=== PATIENT | female | born 1975 | race Caucasian/White ===

== ENCOUNTER 2018-04-26 10:36 | Inpatient (IN) | payer OTHER ==
[~2018-04-26] VITALS: Ht 160 cm; Wt 99.8 kg
[~2018-04-26 10:36] MED LIST: ESOM40CA PO; ESTR0.62 PO; SERT50TA PO
[2018-04-26 11:30] VITALS: BP 110/59
[2018-04-26] MEDS: fentaNYL PF VIAL 100 MCG/2 ML VIAL IV PRN ×4 (12:08→21:24)
[2018-04-26] MEDS ORDERED: PANT20TA2 PO (12:47)
[2018-04-26] MEDS ORDERED: MELA3TAB2 PO (12:47)
[2018-04-26] MEDS ORDERED: TIZA4TAB PO (12:47)
[2018-04-26] MEDS ORDERED: PROC5TAB14 PO (12:47)
[2018-04-26] MEDS ORDERED: PROP60CA8 PO (12:48)
--- NOTE | 2018-04-26 13:22 | HP ---
ADMIT DATE: 04/26/2018 HISTORY OF PRESENT ILLNESS: The patient is a 43-year-old female patient who was originally admitted to [facility] 04/24/2018 initially with a complaint of chest pressure that started the night before admission with some radiation towards her left arm. The pain has subsided and she went to work. On the morning of admission, she was walking upstairs and she began experiencing some dizziness and recurrent with her chest discomfort. She described her chest pain as sharp, left side, radiating towards her left shoulder area. She also has some paresthesia in her left hand; however, exertion does not certainly seem to worsen her chest discomfort; however, she denied any nausea, vomiting or shortness of breath. She apparently has had some chest discomfort in January. She was seen at [facility] Cardiology team and had had an outpatient stress test last Tuesday, but apparently was unremarkable. She was evaluated extensively in the Emergency Room. Her lab work showed that she has slightly deranged liver enzyme, mostly elevated AST, ALT; however, the serum bilirubin and alkaline phosphatase were normal. Her D-dimer was elevated at 1.14 mg/dL and therefore, she underwent CT angio, which was basically unremarkable and was negative for pulmonary embolism, no thoracic aortic dissection or focal aneurysmal dilatation seen. No enlarged thoracic lymphadenopathy is evident. The heart size is at the upper limit of normal, but there was no pericardial effusion, no pleural effusion is seen. She has bilateral ground glass lung infiltrates seen, which may be due to atelectasis or pulmonary edema. There was definitely no pneumothorax. The proximal bronchial tree is patent. No adrenal masses are evident. Diffuse fatty infiltration of the liver is seen. However, the thoracic spines are normal with no evidence of any osteolytic process or compression fracture. She was admitted for further evaluation and underwent an abdominal ultrasound, which showed again fatty liver and the gallbladder was absent. There was no intrahepatic or extrahepatic biliary dilatation. Her spleen, right kidney were all normal and the patient continued to complain of pain in her left upper quadrant and therefore, I did a CT scan of the abdomen and pelvis. So, the CT scan of the abdomen and pelvis with oral and IV contrast showed that the only abnormality is that she has a small fat containing periumbilical hernia seen, but otherwise a CT scan of the abdomen and pelvis with contrast was unremarkable. The patient continued to complain of severe pain and therefore, I transferred the patient to [facility] to consult the bridge repairer and surgical team to see if they find a cause for her resistant abdominal pain. PAST MEDICAL HISTORY: Significant for morbid obesity, obstructive sleep apnea for which she is on CPAP. She also has migraine headaches. PAST SURGICAL HISTORY: Significant for appendectomy, cholecystectomy, total abdominal hysterectomy. She also has a history of endometriosis. She also had an ovarian cyst removal and bladder suspension surgery. ALLERGIES: She has no known drug allergies. MEDICATIONS: She is currently on following medications: She is on tizanidine 4 mg daily, propranolol 60 mg extended release or Inderal-LA 1 capsule daily. She is on topiramate 50 mg twice a day, sertraline for Zoloft 50 mg once a day, Compazine 5 mg 3 times a day and Protonix 40 mg daily and melatonin 5 mg at bedtime. FAMILY HISTORY: She has 1 older brother and one younger brother, both are healthy. Father is alive at age of 68 and has no medical problem. Mother is alive at age of 68 and known to have type 2 diabetes. SOCIAL HISTORY: She is , has 1 biological son and 4 stepson. She does not smoke. Drinks alcohol occasionally. She does not use any drugs. 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 PHYSICAL EXAMINATION GENERAL: When I saw her this morning, she was resting slightly propped up in bed, in no apparent respiratory distress. There was no pallor, jaundice, cyanosis or thyromegaly. No jugular venous distention. No limb edema. VITAL SIGNS: Her heart rate was 60, blood pressure was 160/80, temperature was 98, respiratory rate was 19 and oxygen saturation was 97% on room air. HEAD, EYES, EARS, NOSE AND THROAT: Showed normocephalic, atraumatic. NECK: Supple. HEART: Showed normal first and second heart sounds. No gallop, rub or murmur. CHEST: Clear to auscultation. No crepitation or rhonchi. ABDOMEN: Distended, soft with tenderness mostly in the left upper quadrant. There is no guarding or rigidity. No organomegaly. Hernial orifice intact. Bowel sounds normal. NEUROLOGIC: She is awake, alert, responding appropriately. All cranial nerves intact. EXTREMITIES: She moves extremities without difficulty. She ambulates without assistance or assistive devices. LABORATORY WORK: Done this morning showed a serum sodium 140, potassium 4, chloride 108, bicarbonate 24, anion gap of 8, BUN is 9, creatinine was 0.8. Total bilirubin and alkaline phosphatase were normal. AST, ALT are elevated at 312 and 195 respectively. Her total protein was 6.3, albumin 2.8, calcium was 8.5. Her estimated GFR was 68 mL per minute. Her white cell count and CBC was normal. As I stated, the ultrasound showed nonalcoholic steatohepatitis and a CT scan showed that the liver is enlarged with hepatic attenuation consistent with hepatic steatosis. No focal liver lesion. There has been a cholecystectomy. No biliary duct dilatation. Spleen is not enlarged. No focal splenic lesion is seen. Adrenal glands are normal. Pancreas is unremarkable. Symmetric nephrograms, subcentimeter hypodense left interpolar exophytic renal lesion, is too small to characterize. No hydronephrosis or hydroureter. Small and large bowel are normal in caliber. No evidence of bowel obstruction. Colonic diverticula are seen without evidence of acute diverticulitis. Small fat containing periumbilical hernia is seen. No abdominal or pelvic ascites. No abdominal or pelvic adenopathy. The visualized bony structures are unremarkable. PLAN: To continue with her current medication, consult the surgical team as well as the Gastroenterology team and decide the further management accordingly. MIGUELINA ROSSI MD DR: DIVYA/shaheed JOB#: [id number] / [id number]
--- NOTE | 2018-04-26 13:57 | PDOC2 ---
GI CONSULT Reason For Consult: Abd pain HPI: HPI: 43 y/o female transferred from [facility]. Since last week has had left-sided chest pain. Underwent cardiac workup @ [facility] which was negative. Additionally, CTA chest was negative for PE. Pain is sharp and constant, can wake her up during the night, felt under breast shooting to shoulder, might wrap around left side to back, might also be creeping to epigastrium or slightly down left side. Pain meds provide minimal improvement. Can't specify aggravating factors. Some nausea w/o vomiting, tolerates diet. No diarrhea or constipation. No bleeding. Has gained weight. Hgb 12.7 to 11.7. Bili and Alk Phos have been normal, AST and ALT are elevated - AST 195 (stable), ALT 312 (from 335). Lipase normal. CT w/ hepatomegaly, fat -containing periumbilical hernia, and diverticulosis. US w/ hepatic steatosis and normal CBD. H/o GERD controlled w/ Protonix QD. S/p cholecystectomy for stones. No liver or pancreas history she's aware of. Occasional ibuprofen when struggling with migraines. In 2016, EGD (for abd pain and diarrhea) was normal (no biopsies). At that time, colonoscopy (for diarrhea) mild patchy inflammation w/ granularity and decreased vascularity from sigmoid to cecum (TI biopsy showed focal ileitis with few neutrophils and random colon biopsy suggestive of early microscopic colitis w/o atypic, malignancy, or features of IBD) and internal hemorrhoids. Colestid was recommended; she did not follow-up in the office. PMH: PMH: migraines, EN, GERD, hepatic steatosis, diverticulosis, PCOS, tonsillectomy, ovarian cystectomies, hysterectomy, appendectomy, cholecystectomy, bladder suspension x 2, RICAHRD FH: Family History: No pertinent hx (denies GI cancers) Social History: Smoke: No ALCOHOL: occassional Drugs: None ROS: GEN: Denies fevers, chills, sweats HEENT: Denies blurred vision, sore throat CV: Denies chest pain RESP: Denies shortness of air, cough GI: Per HPI : Denies hematuria, dysuria ENDO: Denies weight changes NEURO: Denies confusion, dizziness MSK: Denies weakness, joint pain/swelling SKIN: Denies jaundice, pruritus Vitals: Vitals: Vital Signs Date Time Temp Pulse Resp B/P (MAP) Pulse Ox O2 Delivery O2 Flow Rate FiO2 04/26/18 11:30 98.3 55 16 110/59 (76) 95 Room Air 98.3 Labs: Labs: Per HPI. Allergies: Coded Allergies: No Known Drug Allergies (Unverified , 09/18/15) Medications: Current Medications Medications (Trade) Dose Ordered Sig/Rimma Route PRN Reason Start Time Stop Time Status Last Admin Dose Admin Potassium Chloride/Sodium Chloride 1,000 ml @ 75 mls/hr [id number] IV 04/26/18 11:45 04/26/18 12:11 Fentanyl Citrate (Fentanyl 2ml Vial) 50 mcg PRN Q2HR PRN IV PAIN 04/26/18 11:45 04/26/18 12:08 Imaging: Imaging: Per HPI. PE: GEN: uncomfortable HEENT: Atraumatic, PERRL LUNGS: CTAB HEART: RRR ABD: NABS, soft, overweight, unable to reproduce pain w/ exam EXTREMITY: No edema SKIN: No rashes, no jaundice NEURO/PSYCH: A & O 3 A/P: A/P: Left-sided chest pain -radiates to shoulder, under breast, to epigastrium, and around to back -sharp, constant Elevated AST and ALT, hepatic steatosis GERD -controlled on PPI, normal EGD 2015 CRC screen - UTD Diverticulosis S/p cholecystectomy, multiple abd surgeries Normocytic anemia - Hgb 11.7 -- Unclear etiology. Reviewed w/ Dr. Jimenez. Check Hepatitis serologies and autoimmune markers. Would continue PPI and try dicyclomine. Could consider advancing diet. ?lidocaine patch TYRELL QUIROZ Apr 26, 2018 13:57
[2018-04-26 15:00] VITALS: BP 109/67
[2018-04-26] MEDS: ONDANSETRON PF 4 MG/2 ML VIAL. IV PRN ×2 (15:00→22:04)
[2018-04-26] MEDS: DICYCLOMINE HCL 10 MG CAPSULE PO PRN ×2 (15:01→21:23)
--- NOTE | 2018-04-26 15:10 | PDOC2 ---
CONSULT Date of Consult Date of Consult DATE: 04/26/18 TIME: 15:04 Reason for Consult Reason for Consult: LUQ abd pain Referring Physician Referring Physician: Ra Identification/Chief Complaint Chief Complaint LUQ abd pain Source Source: Chart review, Patient History of Present Illness Reason for Visit: 43 yo F with a few day history of LUQ abd pain. She has not previous issues like this. She denies n/V, F/C. Etiology is unknown, imaging at [facility] unrevealing. Past Medical History CENTRAL NERVOUS SYSTEM: Migraine GI: GERD Rheumatologic: Other (osteoarthritis) Past Surgical History Past Surgical History: Appendectomy, Cholecystectomy, Hysterectomy, Other (RICHARD , bladder suspension) Family History Family History: No Significant Social History No ALCOHOL: occassional Drugs: None Current Medications Current Medications Current Medications Ondansetron HCl (Zofran) 4 mg PRN Q6HRS PRN IV NAUSEA/VOMITING Last administered on 04/26/18at 15:00; Start 04/26/18 at 11:45 Pantoprazole Sodium (Protonix) 40 mg DAILYAC PO ; Start 04/27/18 at 07:30 Potassium Chloride/Sodium Chloride 1,000 ml @ 75 mls/hr [id number] IV Last administered on 04/26/18at 12:11; Start 04/26/18 at 11:45 Sertraline HCl (Zoloft) 50 mg QHS PO ; Start 04/26/18 at 21:00 Topiramate (Topamax) 50 mg BID PO ; Start 04/26/18 at 21:00 Fentanyl Citrate (Fentanyl 2ml Vial) 50 mcg PRN Q2HR PRN IV PAIN Last administered on 04/26/18at 15:01; Start 04/26/18 at 11:45 Tizanidine HCl (Zanaflex) 4 mg HS PO ; Start 04/26/18 at 21:00 Dicyclomine HCl (Bentyl) 10 mg PRN QID PRN PO ABDOMINAL PAIN Last administered on 04/26/18at 15:01; Start 04/26/18 at 15:00 Active Scripts Active Reported Inderal La (Propranolol Hcl) 60 Mg Cap.sa.24h 1 Cap PO DAILY Tizanidine Hcl 4 Mg Tablet 4 Mg PO DAILY PRN Prochlorperazine Maleate 10 Mg Tablet 5 Mg PO TID Protonix (Pantoprazole Sodium) 20 Mg Tablet.dr 1 Tab PO DAILY Melatonin 3 Mg Tablet 5 Mg PO HS PRN Zoloft (Sertraline Hcl) 50 Mg Tablet 50 Mg PO DAILY Allergies Allergies: Coded Allergies: No Known Drug Allergies (Unverified , 09/18/15) ROS Gastrointestinal: Yes Abdominal Pain Physical Exam General: Alert, Oriented X3, Cooperative, No acute distress HEENT: Atraumatic Lungs: Normal air movement Abdomen: Soft, No tenderness Extremities: No clubbing, No cyanosis Skin: No rashes, No breakdown Neuro: Normal speech, Sensation intact Psych/Mental Status: Mental status NL, Mood NL Vitals VITALS Vital Signs Date Time Temp Pulse Resp B/P (MAP) Pulse Ox O2 Delivery O2 Flow Rate FiO2 04/26/18 11:30 98.3 55 16 110/59 (76) 95 Room Air 98.3 Assessment/Plan Assessment/Plan LUQ abd pain fat containing hernia only abnormality noted-low suspicion that this is clinically relevant. In addition, pt poor candidate for hernia recurrence based on obesity. Agree with w/u per GI. No surgical plans. Thanks for consult! NELLIE GARCAI MD Apr 26, 2018 15:10
[2018-04-26 19:35] VITALS: BP 136/67
[2018-04-26] MEDS: TOPIRAMATE 25 MG TABLET. PO SCH (21:22)
[2018-04-26] MEDS: SERTRALINE 50 MG TABLET. PO SCH (21:23)
[2018-04-26] MEDS: tiZANidine 4 MG TABLET. PO SCH (21:23)
[2018-04-26 23:50] VITALS: BP 118/68
[2018-04-27] MEDS: fentaNYL PF VIAL 100 MCG/2 ML VIAL IV PRN ×8 (00:41→23:29)
[2018-04-27 03:35] VITALS: BP 87/47
[2018-04-27] MEDS: ONDANSETRON PF 4 MG/2 ML VIAL. IV PRN ×3 (04:06→17:32)
[2018-04-27 07:00] VITALS: BP 112/58
[2018-04-27] MEDS: PANTOPRAZOLE 40 MG TABLET.DR. PO SCH (08:44)
[2018-04-27] MEDS: TOPIRAMATE 25 MG TABLET. PO SCH ×2 (08:44→20:35)
--- NOTE | 2018-04-27 09:02 | PDOC ---
BA YADAV APRN 04/27/18 0902: SURGICAL PROGRESS NOTE Subjective continued epigastric and LUQ pain nausea at times taking clears Vital Signs Vital Signs Date Time Temp Pulse Resp B/P (MAP) Pulse Ox O2 Delivery O2 Flow Rate FiO2 04/27/18 07:52 16 Room Air 04/27/18 07:09 96 04/27/18 07:00 97.8 50 112/58 (76) 97.8 I&O Intake and Output 04/27/18 07:00 Intake Total 500 ml Balance 500 ml Intake Oral 500 ml # Voids 4 General: Alert, Oriented X3, Cooperative, No acute distress Abdomen: Soft, Other (TTP epigastric, LUQ) Problem List abd pain no surgical plans, await GI input NELLIE GARCIA MD 04/27/18 1631: SURGICAL PROGRESS NOTE Problem List Pt seen and examined. Agree with Otilio Yadav's note Pt with c/o persistent LUQ pain mild TTP LUQ cont w/u per GI BA YADAV APRN Apr 27, 2018 09:02 NELLIE GARCIA MD Apr 27, 2018 16:31
[2018-04-27 09:36] LABS: ALBUMIN 3.2 g/dL (3.4-5.0); DIRECT BILIRUBIN 0.2 mg/dL (0.0-0.2); TOTAL BILIRUBIN 0.7 mg/dL (0.2-1.0); TOTAL PROTEIN 6.9 g/dL (6.4-8.2)
--- NOTE | 2018-04-27 10:24 | PDOC ---
Subjective: Subjective: Pain is ongoing - no pretty much in epigastrium. Bentyl and GI cocktail not helpful. Tells me she has episodes of sour stomach burps and then diarrhea - having neither symptom now. Objective: Objective: Reviewed w/ RN = wants Fentanyl Q 2 hours, says brings her pain from 7 to 5. Vital Signs: Vital Signs Date Time Temp Pulse Resp B/P (MAP) Pulse Ox O2 Delivery O2 Flow Rate FiO2 04/27/18 08:00 Room Air 04/27/18 07:52 16 04/27/18 07:09 96 04/27/18 07:00 97.8 50 112/58 (76) 97.8 Labs: Laboratory Tests Test 04/27/18 07:40 Total Bilirubin 0.7 mg/dL Direct Bilirubin 0.2 mg/dL Aspartate Amino Transf (AST/SGOT) 221 U/L Alanine Aminotransferase (ALT/SGPT) 343 U/L Alkaline Phosphatase 109 U/L Total Protein 6.9 g/dL Albumin 3.2 g/dL PE: GEN: NAD LUNGS: CTAB HEART: RRR ABD: epigastric discomfort NEURO/PSYCH: A & O 3 A/P: Pain - began in chest and shoulder, now epigastrium/LUQ -h/o GERD on PPI, EGD 2016 -multiple abd surgeries Elevated AST and ALT - worse -hepatic steatosis on imaging -- Seems has chronic GI issues, but this pain is new/different. Has been 'scoped within 2 years. ?GES ?SBS - Dr. Jimenez to see this afternoon Await pending labs. TYRELL QUIROZ Apr 27, 2018 10:24
[2018-04-27 11:00] VITALS: BP 112/60
--- NOTE | 2018-04-27 11:29 | PN ---
DATE: 04/27/2018 SUBJECTIVE: The patient is resting, slightly propped up in bed, no apparent distress. She continued to complain of pain in her left upper quadrant. She was seen in consultation by Dr. Carvajal, who basically did not think that umbilical hernia is not clinically relevant and there are no surgical plans to correct the hernia. We did consult the GI team and she was not seen yet by Dr. Jimenez. She apparently has had upper GI endoscopy before. PHYSICAL EXAMINATION: GENERAL: When I examined her this morning, she looked well and was clearly in no apparent respiratory distress, slightly pale, but no jaundice, cyanosis or thyromegaly. No jugular venous distention. No lower limb edema. VITAL SIGNS: Her heart rate was 50, blood pressure was 112/58, temperature was 97.8, respiratory rate was 18 and oxygen saturation was 98%. The rest of the clinical exam is unremarkable, has not really changed. She does have some tenderness in the left upper quadrant. LABORATORY DATA: No lab works ordered. So I did order CBC, CMP, sed rate and CRP for tomorrow morning. ASSESSMENT AND PLAN: Left upper quadrant pain without any obvious explanation. She has had initially pain in the left side of the chest, radiating to her left shoulder and underwent nuclear stress testing and echocardiogram, both were unremarkable. CT scan of the chest with PE protocol showed no evidence of pulmonary embolism or aortic dissection. No pneumothorax, pleural effusion or pneumonia. CT scan of the abdomen showed that the patient has nonalcoholic steatosis. Her gallbladder is absent. There is no intrahepatic or extrahepatic biliary dilatation. There is no left-sided hydronephrosis or hydroureter. The plan is to await evaluation by the Gastroenterology team. MIGUELINA ROSSI MD DR: DIVYA/shaheed JOB#: [id number] / [id number]
[2018-04-27 15:00] VITALS: BP 109/62
[2018-04-27 19:00] VITALS: BP 142/68
[2018-04-27] MEDS: tiZANidine 4 MG TABLET. PO SCH (20:35)
[2018-04-27] MEDS: SERTRALINE 50 MG TABLET. PO SCH (20:35)
[2018-04-27 23:00] VITALS: BP 135/76
[2018-04-28 03:00] VITALS: BP 129/63
[2018-04-28] MEDS: fentaNYL PF VIAL 100 MCG/2 ML VIAL IV PRN ×7 (03:19→20:27)
[2018-04-28 05:32] LABS: HEMATOCRIT 35.3 % (36.0-47.0); HEMOGLOBIN 11.7 g/dL (12.0-15.5); RED BLOOD COUNT 4.24 x10^6/uL (3.50-5.40); RED CELL DISTRIBUTION WIDTH 15.3 % (11.5-14.5); WHITE BLOOD COUNT 7.6 x10^3/uL (4.0-11.0)
[2018-04-28] MEDS: PANTOPRAZOLE 40 MG TABLET.DR. PO SCH ×2 (06:00→11:25)
[2018-04-28 06:08] LABS: ALBUMIN 3.1 g/dL (3.4-5.0); ALBUMIN/GLOBULIN RATIO 0.9 (1.0-1.7); CREATININE 0.9 mg/dL (0.6-1.0); GFR 67.7; TOTAL BILIRUBIN 0.9 mg/dL (0.2-1.0); TOTAL PROTEIN 6.7 g/dL (6.4-8.2)
[2018-04-28 06:17] LABS: C-REACTIVE PROTEIN 11.9 mg/L (0-3.3)
[2018-04-28] MEDS: ONDANSETRON PF 4 MG/2 ML VIAL. IV PRN ×3 (06:48→20:30)
[2018-04-28 07:00] VITALS: BP 121/67
--- NOTE | 2018-04-28 08:19 | PDOC ---
SURGICAL PROGRESS NOTE Subjective Pt with c/o persistent LUQ pain Vital Signs Vital Signs Date Time Temp Pulse Resp B/P (MAP) Pulse Ox O2 Delivery O2 Flow Rate FiO2 04/28/18 06:49 Room Air 04/28/18 03:00 98.2 54 18 129/63 (85) 95 98.2 I&O Intake and Output 04/28/18 07:00 Intake Total 2440 ml Balance 2440 ml Intake Oral 1440 ml IV Total 1000 ml # Voids 7 General: Alert, Oriented X3, Cooperative, No acute distress Abdomen: Soft, Other (mild TTP LUQ) Labs Laboratory Tests Test 04/27/18 07:40 04/28/18 04:40 Total Bilirubin 0.7 mg/dL (0.2-1.0) 0.9 mg/dL (0.2-1.0) Direct Bilirubin 0.2 mg/dL (0.0-0.2) Aspartate Amino Transf (AST/SGOT) 221 U/L (15-37) 220 U/L (15-37) Alanine Aminotransferase (ALT/SGPT) 343 U/L (14-59) 342 U/L (14-59) Alkaline Phosphatase 109 U/L (46-116) 101 U/L (46-116) Total Protein 6.9 g/dL (6.4-8.2) 6.7 g/dL (6.4-8.2) Albumin 3.2 g/dL (3.4-5.0) 3.1 g/dL (3.4-5.0) Cortisol AM Sample 8.2 ug/dL (4.3-22.4) Hepatitis B Surface Antigen Nonreactive (Nonreactive) Hepatitis C IgG Antibody Nonreactive (Nonreactive) White Blood Count 7.6 x10^3/uL (4.0-11.0) Red Blood Count 4.24 x10^6/uL (3.50-5.40) Hemoglobin 11.7 g/dL (12.0-15.5) Hematocrit 35.3 % (36.0-47.0) Mean Corpuscular Volume 83 fL (79-100) Mean Corpuscular Hemoglobin 28 pg (25-35) Mean Corpuscular Hemoglobin Concent 33 g/dL (31-37) Red Cell Distribution Width 15.3 % (11.5-14.5) Platelet Count 222 x10^3/uL (140-400) Erythrocyte Sedimentation Rate 22 (0-25) Sodium Level 140 mmol/L (136-145) Potassium Level 4.0 mmol/L (3.5-5.1) Chloride Level 106 mmol/L (98-107) Carbon Dioxide Level 22 mmol/L (21-32) Anion Gap 12 (6-14) Blood Urea Nitrogen 6 mg/dL (7-20) Creatinine 0.9 mg/dL (0.6-1.0) Estimated GFR (Cockcroft-Gault) 67.7 BUN/Creatinine Ratio 7 (6-20) Glucose Level 114 mg/dL (70-99) Calcium Level 9.0 mg/dL (8.5-10.1) C-Reactive Protein, Quantitative 11.9 mg/L (0-3.3) Albumin/Globulin Ratio 0.9 (1.0-1.7) Laboratory Tests Test 04/28/18 04:40 White Blood Count 7.6 x10^3/uL (4.0-11.0) Red Blood Count 4.24 x10^6/uL (3.50-5.40) Hemoglobin 11.7 g/dL (12.0-15.5) Hematocrit 35.3 % (36.0-47.0) Mean Corpuscular Volume 83 fL (79-100) Mean Corpuscular Hemoglobin 28 pg (25-35) Mean Corpuscular Hemoglobin Concent 33 g/dL (31-37) Red Cell Distribution Width 15.3 % (11.5-14.5) Platelet Count 222 x10^3/uL (140-400) Erythrocyte Sedimentation Rate 22 (0-25) Sodium Level 140 mmol/L (136-145) Potassium Level 4.0 mmol/L (3.5-5.1) Chloride Level 106 mmol/L (98-107) Carbon Dioxide Level 22 mmol/L (21-32) Anion Gap 12 (6-14) Blood Urea Nitrogen 6 mg/dL (7-20) Creatinine 0.9 mg/dL (0.6-1.0) Estimated GFR (Cockcroft-Gault) 67.7 BUN/Creatinine Ratio 7 (6-20) Glucose Level 114 mg/dL (70-99) Calcium Level 9.0 mg/dL (8.5-10.1) Total Bilirubin 0.9 mg/dL (0.2-1.0) Aspartate Amino Transf (AST/SGOT) 220 U/L (15-37) Alanine Aminotransferase (ALT/SGPT) 342 U/L (14-59) Alkaline Phosphatase 101 U/L (46-116) C-Reactive Protein, Quantitative 11.9 mg/L (0-3.3) Total Protein 6.7 g/dL (6.4-8.2) Albumin 3.1 g/dL (3.4-5.0) Albumin/Globulin Ratio 0.9 (1.0-1.7) Problem List LUQ pain agree with GI w/u no surgical plan currently NELILE GARCIA MD Apr 28, 2018 08:19
--- NOTE | 2018-04-28 10:13 | PDOC ---
Objective: Objective: Out of room for MRCP. Ongoing pain per RN. Vital Signs: Vital Signs Date Time Temp Pulse Resp B/P (MAP) Pulse Ox O2 Delivery O2 Flow Rate FiO2 04/28/18 09:09 20 Room Air 04/28/18 07:00 97.8 50 121/67 (85) 96 97.8 Labs: Laboratory Tests Test 04/28/18 04:40 White Blood Count 7.6 x10^3/uL Red Blood Count 4.24 x10^6/uL Hemoglobin 11.7 g/dL Hematocrit 35.3 % Mean Corpuscular Volume 83 fL Mean Corpuscular Hemoglobin 28 pg Mean Corpuscular Hemoglobin Concent 33 g/dL Red Cell Distribution Width 15.3 % Platelet Count 222 x10^3/uL Erythrocyte Sedimentation Rate 22 Sodium Level 140 mmol/L Potassium Level 4.0 mmol/L Chloride Level 106 mmol/L Carbon Dioxide Level 22 mmol/L Anion Gap 12 Blood Urea Nitrogen 6 mg/dL Creatinine 0.9 mg/dL Estimated GFR (Cockcroft-Gault) 67.7 BUN/Creatinine Ratio 7 Glucose Level 114 mg/dL Calcium Level 9.0 mg/dL Total Bilirubin 0.9 mg/dL Aspartate Amino Transf (AST/SGOT) 220 U/L Alanine Aminotransferase (ALT/SGPT) 342 U/L Alkaline Phosphatase 101 U/L C-Reactive Protein, Quantitative 11.9 mg/L Total Protein 6.7 g/dL Albumin 3.1 g/dL Albumin/Globulin Ratio 0.9 PE: no exam, out of room A/P: Upper abd pain -last EGD and colonoscopy in 2015 -h/o GERD on PPI -multiple abd surgeries including norm Elevated AST and ALT (stable), hepatic steatosis -- Await MRCP. If unrevealing, proceed w/ GES. TYRELL QUIROZ Apr 28, 2018 10:13
[2018-04-28 11:00] VITALS: BP 117/66
[2018-04-28] MEDS: TOPIRAMATE 25 MG TABLET. PO SCH ×2 (11:22→20:31)
--- NOTE | 2018-04-28 11:38 | PN ---
DATE: 04/28/2018 INCOMPLETE DICTATION SUBJECTIVE: The patient is . DICTATION ENDS HERE. MIGUELINA ROSSI MD DR: DIVYA/shaheed JOB#: [id number] / [id number]
--- NOTE | 2018-04-28 11:42 | PN ---
DATE: 04/28/2018 SUBJECTIVE: The patient is resting slightly propped up in bed, in no apparent respiratory distress. She is awake, alert, apparently has been complaining of severe pain that she rated out as a 9/10 for which she received her IV fentanyl. She is n.p.o. She is scheduled for MRCP this morning. PHYSICAL EXAMINATION: GENERAL: When I examined her, she looked well and was clearly in no apparent respiratory distress. No pallor, jaundice, cyanosis, or thyromegaly. No jugular venous distension. No lower limb edema. VITAL SIGNS: Her heart rate was 50, blood pressure was 121/67, temperature was 97.8, respiratory rate 16, and oxygen saturation was 96%. The rest of clinical examination is unremarkable, has not really changed. LABORATORY DATA: This morning showed a serum sodium 140, potassium 4, chloride 106, bicarbonate 22, anion gap of 12, BUN 6, creatinine 0.9, estimated GFR was 68 mL per minute. Her glucose was 114, calcium was 9. Total bilirubin and alkaline phosphatase were normal. AST, ALT were elevated. Her C-reactive protein was 11.9 mg/dL. Total protein was 6.7, albumin was 3.1. Her white cell count was 7600, hemoglobin 12, hematocrit 35, MCV 83 and platelet count 222,000. Her sedimentation rate was 22. ASSESSMENT: Persistent left upper quadrant abdominal pain for which she was seen by the Gastroenterology team and she is scheduled for MRCP as she has undergone cholecystectomy to evaluate for any choledocholithiasis or other abnormalities. MIGUELINA ROSSI MD DR: DIVYA/shaheed JOB#: [id number] / [id number]
--- NOTE | 2018-04-28 13:33 | RAD ---
MRCP, 04/28/2018: HISTORY: Worsening abdominal pain, transaminitis Imaging was performed in axial and coronal planes utilizing a variety of imaging sequences including T2 weighted, fat suppressed T2 weighted, diffusion weighted and opposed phase gradient echo sequences. 2-D and 3-D heavily MRCP sequences were performed with 3-D reconstructions produced. The gallbladder is surgically absent. The intrahepatic bile ducts and the common bile duct are of normal caliber. No filling defect is seen in the common duct to suggest a retained calculus. The pancreatic duct is small and incompletely visualized. No abnormality is detected. Incidental note is made of mild hepaticomegaly with evidence of hepatic steatosis. The liver, pancreas, spleen and visualized portions of the kidneys are otherwise unremarkable. IMPRESSION: 1. Status post cholecystectomy. 2. No biliary tract abnormality is detected. 3. Hepatomegaly with hepatic steatosis. Electronically signed by: Leonard Acuña MD (04/28/2018 1:29 PM) [facility]
[2018-04-28 15:00] VITALS: BP 116/66
[2018-04-28 19:00] VITALS: BP 136/73
[2018-04-28] MEDS: SERTRALINE 50 MG TABLET. PO SCH (20:30)
[2018-04-28] MEDS: tiZANidine 4 MG TABLET. PO SCH (20:31)
[2018-04-28 23:00] VITALS: BP 120/65
[2018-04-29] MEDS: fentaNYL PF VIAL 100 MCG/2 ML VIAL IV PRN ×7 (00:12→15:57)
[2018-04-29 03:00] VITALS: BP 126/77
[2018-04-29] MEDS: PANTOPRAZOLE 40 MG TABLET.DR. PO SCH (06:46)
[2018-04-29] MEDS: ONDANSETRON PF 4 MG/2 ML VIAL. IV PRN ×2 (06:46→09:19)
[2018-04-29 07:10] VITALS: BP 119/59
[2018-04-29] MEDS: TOPIRAMATE 25 MG TABLET. PO SCH (09:13)
[2018-04-29] MEDS: DICYCLOMINE HCL 10 MG CAPSULE PO PRN ×2 (09:19→14:56)
[2018-04-29 11:35] VITALS: BP 125/71
--- NOTE | 2018-04-29 12:13 | PN ---
DATE: 04/29/2018 SUBJECTIVE: The patient is resting, slightly propped up in bed, in no apparent distress. She continues to complain of pain. She has had her MRCP, which was unrevealing. It showed the gallbladder is surgically absent. The intrahepatic bile ducts and the common bile duct are of normal caliber. No filling defects are seen in the common bile duct to suggest any retained calculus. Carotid duct is small and incompletely visualized. No abnormalities detected. Incidental note is made of mild hepatomegaly with evidence of hepatic steatosis. The liver, pancreas, spleen and visualized portion of the kidneys are otherwise unremarkable. The Gastroenterology team recommended gastric emptying study; however, this is not something that is done at the weekend. I offered to discharge her home to do it as an outpatient and follow up with the Gastroenterology, but the patient wanted to wait the Gastroenterology round. PHYSICAL EXAMINATION: GENERAL: When I examined her, she looked pale, but no jaundice, cyanosis or thyromegaly. No jugular venous distention. No lower limb edema. VITAL SIGNS: Her heart rate was 48, blood pressure was 119/59, temperature was 98.2, respiratory rate was 16 and oxygen saturation was 95%. The rest of the clinical examination is unremarkable. Her intake was 2414. No output was recorded. LABORATORY DATA: Her lab work showed that her AST and ALT continued to be elevated; however, her bilirubin and alkaline phosphatase were normal. Her sed rate was 22 mm per hour. C-reactive protein was 11.9. Her hepatitis B surface antigen and hepatitis C IgG antibodies were both nonreactive. ASSESSMENT AND PLAN: Persistent abdominal pain, with so far no obvious cause for her pain. She was supposed to have gastric emptying study; unfortunately, it is something that is not done on the weekend. I will await decision by the Gastroenterology. We will write a prescription for oxycodone in case the Gastroenterology decides to discharge her home to finish her investigation as an outpatient. MIGUELINA ROSSI MD DR: DIVYA/shaheed JOB#: [id number] / [id number]
[2018-04-29] MEDS ORDERED: OXYC5TAB95 PO (13:59)
[2018-04-29 14:45] VITALS: BP 130/83
[2018-04-30 16:09] LABS: MITOCHONDRIAL ABDY 17.1 Units (0.0-20.0)
--- NOTE | 2018-05-01 13:04 | DS ---
DATE OF DISCHARGE: 04/29/2018 HOSPITAL COURSE: The patient is a 43-year-old female patient who was transferred from [facility] where she was admitted with left-sided chest pain radiating to her shoulder and also that moved to her left upper quadrant. She was extensively investigated at [facility]. She has CT angio of the chest and she had abdominal ultrasound as well as CT scan of the abdomen and pelvis and apart from hepatic steatosis, there was no abnormality except perhaps small fat containing periumbilical hernia and therefore, the patient was transferred to [facility]. I did consult the surgical team. We did consult Dr. Carvajal and he did not recommend any surgical intervention for her small fat containing periumbilical hernia; however, Dr. Jimenez has seen the patient and ordered magnetic resonance cholangiopancreatography as well as multiple lab work including her multiple serological studies as well as hepatitis B surface antigen as well as hepatitis C IgG antibodies. The MRCP was unremarkable and showed that the gallbladder is surgically absent. The intrahepatic bile ducts and the common bile ducts are of normal caliber. No filling defect is seen and the common bile duct suggest retained calculus. The pancreatic duct is small and incompletely visualized. No abnormalities detected. Incidental note is made of mild hepatomegaly with evidence of hepatic steatosis of the liver, pancreas, spleen and visualized portion of the kidneys are otherwise unremarkable. He also recommended doing a gastric emptying study; however, it was a weekend and that obviously cannot be done, so I recommended that the patient can be discharged home to arrange for this gastric emptying study and follow with Dr. Jimenez in his office as an outpatient. PHYSICAL EXAMINATION: GENERAL: On the day of discharge, the patient looked well and was clearly in no apparent respiratory distress. No pallor, jaundice or cyanosis. No lymphadenopathy, no thyromegaly. No jugular venous distension. No lower limb edema. VITAL SIGNS: Her heart rate was 48, blood pressure was 130/83, temperature was 98, respiratory rate was 17 and oxygen saturation was 97% on room air. HEAD, EYES, EARS, NOSE AND THROAT: Showed normocephalic, atraumatic. NECK: Supple. HEART: Showed normal first and second heart sounds. No gallop, rub or murmur. CHEST: Clear to auscultation. No crepitation or rhonchi. ABDOMEN: Distended, soft. Tenderness that is moving sometimes in her left upper and sometimes right upper quadrant. There is no guarding or rigidity. No organomegaly. All hernial orifice intact. Bowel sounds normal. NEUROLOGIC: She was awake, alert, responding appropriately. Cranial nerves intact. EXTREMITIES: She moves her extremities without difficulty. She ambulates without assistance or assistive devices. LABORATORY WORK: On the day of discharge showed that her white cell count was 7600, hemoglobin 12, hematocrit 35, MCV 83 and platelet count 222,000. Her sedimentation rate was 22 mm per hour. Her chemistry showed a serum sodium 140, potassium 4, chloride 106, bicarbonate 22, anion gap of 12, BUN 6, creatinine 0.9, estimated GFR was 68 mL per minute. Her glucose was 114. Calcium was 9. Total bilirubin 0.9, alkaline phosphatase were normal. Her AST, ALT were elevated. Her C-reactive protein was 11.9. Total protein was 6.7, albumin 3.1. Her morning cortisol was 8.2. Her antimitochondrial antibody was only 17. Antismooth muscle antibody and antinuclear antibody is still pending; however, her hepatitis B and C are both negative. DISCHARGE MEDICATIONS: The patient was discharged home to continue on oxycodone 5 mg every 6 hours as needed, melatonin 5 mg at bedtime, Protonix 40 mg at bedtime, prochlorperazine maleate 10 mg 3 times a day, propranolol 60 mg daily, sertraline for Zoloft 50 mg once a day and tizanidine 4 mg daily as needed for muscle spasm. FINAL DISCHARGE DIAGNOSES: 1. Abdominal pain without any obvious cause. 2. Transaminitis, most likely due to nonalcoholic steatohepatitis. 3. Other medical problems include migraine headache, morbid obesity with obstructive sleep apnea. DISCHARGE INSTRUCTIONS: The patient was instructed to follow up with Dr. Jimenez to follow up the results of the lab work and also to arrange for gastric emptying study as an outpatient. MIGUELINA ROSSI MD DR: DIVYA/shaheed JOB#: [id number] / [id number]
[2018-05-01 14:26] LABS: SMOOTH MUSCLE AB 16 Units (0-19)
[2018-05-01 15:24] LABS: ANA INTERP Negative (.)
== END 2018-04-29 16:18 | disposition home or self-care (01) | DRG 392 ==
LOC: 4 NORTH 11:35
PROVIDERS: ADMIT Internal Medicine; ATTEND Internal Medicine
DX: R10.9 Unspecified abdominal pain (principal); K76.0 Fatty (change of) liver, not elsewhere classified; G43.909 Migraine, unspecified, not intractable, without status migrainosus; G47.33 Obstructive sleep apnea (adult) (pediatric); K21.9 Gastro-esophageal reflux disease without esophagitis; M19.90 Unspecified osteoarthritis, unspecified site; R07.89 Other chest pain; R16.0 Hepatomegaly, not elsewhere classified; D64.9 Anemia, unspecified; E66.01 Morbid (severe) obesity due to excess calories; K57.90 Diverticulosis of intestine, part unspecified, without perforation or abscess without bleeding; Z83.3 Family history of diabetes mellitus; Z90.49 Acquired absence of other specified parts of digestive tract; Z90.710 Acquired absence of both cervix and uterus; Z68.39 Body mass index [BMI] 39.0-39.9, adult; Z79.899 Other long term (current) drug therapy
CPT/HCPCS: 36415; 74181; 80053; 80076; 82533; 83520; 85027; 85651; 86038; 86140; 86255; 86803; 87340; 90471; 90756; J2405; J3010; 83516; Q2035

== ENCOUNTER 2018-10-02 17:59 | Inpatient (IN) | payer OTHER ==
[~2018-10-02] VITALS: Ht 157.5 cm; Wt 102.6 kg
[~2018-10-02 17:59] MED LIST changes: +ERYT250C8 PO; +MELA3TAB2 PO; +OXYC5CAP PO; +OXYC5TAB4 PO; +PANT20TA2 PO; +PRIM50TA PO; +PROC5TAB14 PO; +PROP60CA8 PO; +SERT50TA8 PO; +TIZA4TAB PO; +TOPI50TA8 PO
[2018-10-02] MEDS ORDERED: ONDANSETRON PF 4 MG/2 ML VIAL. IV ONE (19:00)
[2018-10-02] MEDS ORDERED: IV NORMAL SALINE 1000ML BAG 1,000 ML IV ONE (19:00)
[2018-10-02] MEDS ORDERED: MORPHINE SULFATE 10 MG/ML VIAL. IV ONE (19:00)
[2018-10-02 19:44] LABS: BASO # 0.1 x10^3/uL (0.0-0.2); BASO % 1 % (0-3); EOS # 0.1 x10^3/uL (0.0-0.7); EOS % 1 % (0-3); HEMATOCRIT 35.7 % (36.0-47.0); HEMOGLOBIN 11.5 g/dL (12.0-15.5); LYMPH # 2.2 x10^3/uL (1.0-4.8); LYMPH % 22 % (24-48); MEAN CORPUSCULAR HEMOGLOBIN 25 pg (25-35); MEAN CORPUSCULAR HGB CONC 32 g/dL (31-37); MEAN CORPUSCULAR VOLUME 79 fL (79-100); MONO # 0.8 x10^3/uL (0.0-1.1); MONO % 9 % (0-9); NEUT # 6.6 x10^3uL (1.8-7.7); NEUT % 68 % (31-73); PLATELET COUNT 264 x10^3/uL (140-400); RED BLOOD COUNT 4.53 x10^6/uL (3.50-5.40); WHITE BLOOD COUNT 9.7 x10^3/uL (4.0-11.0)
[2018-10-02 20:05] LABS: CALCIUM 8.8 mg/dL (8.5-10.1); CREATININE 0.8 mg/dL (0.6-1.0); GFR 77.6; POTASSIUM 3.7 mmol/L (3.5-5.1)
[2018-10-02 20:11] LABS: ALBUMIN 3.5 g/dL (3.4-5.0); ALBUMIN/GLOBULIN RATIO 0.9 (1.0-1.7); TOTAL BILIRUBIN 0.6 mg/dL (0.2-1.0); TOTAL PROTEIN 7.5 g/dL (6.4-8.2)
--- NOTE | 2018-10-02 20:37 | PHYS DOC ---
Past Medical History Past Medical History: GERD Additional Past Medical Histor: SLEEP APNEA Past Surgical History: Appendectomy, Cholecystectomy, Hysterectomy Alcohol Use: Rarely Drug Use: None Adult General Chief Complaint Chief Complaint: ABDOMINAL PAIN HPI HPI Patient is a 43 year old female who presents with abdominal pain. The patient says that she is positive for a diagnosis of Crohn's disease and thinks that she is also been diagnosed with IBS. She states that she took Bentyl and oxycodone today with no relief from her pain. She states that she has had this happen in the past and needed to be admitted for intractable pain. She states that she has had bloody stool, but she has not called Dr. Jimenez's office today for this finding. Review of Systems Review of Systems Constitutional: Denies fever or chills [] Respiratory: Denies cough or shortness of breath [] Cardiovascular: No additional information not addressed in HPI [] GI: See history of present illness : Denies dysuria or hematuria [] Musculoskeletal: Denies back pain or joint pain [] Integument: Denies rash or skin lesions [] Neurologic: Denies headache, focal weakness or sensory changes [] Endocrine: Denies polyuria or polydipsia [] All other systems were reviewed and found to be within normal limits, except as documented in this note. Current Medications Current Medications Current Medications Medications (Trade) Dose Ordered Sig/[facility] Start Time Stop Time Status Last Admin Dose Admin Morphine Sulfate (Morphine Sulfate) 5 mg 1X ONCE 10/02/18 19:00 10/02/18 19:01 DC 10/02/18 19:04 5 MG Ondansetron HCl (Zofran) 4 mg 1X ONCE 10/02/18 19:00 10/02/18 19:01 DC 10/02/18 19:04 4 MG Sodium Chloride 1,000 ml @ 1,000 mls/hr 1X ONCE 10/02/18 19:00 10/02/18 19:59 DC 10/02/18 19:05 1,000 MLS/HR Allergies Allergies Allergies Coded Allergies Type Severity Reaction Last Updated Verified No Known Drug Allergies 09/18/15 No Physical Exam Physical Exam Constitutional: Well developed, well nourished, no acute distress, non-toxic appearance. [] Cardiovascular:Heart rate regular rhythm, no murmur [] Lungs & Thorax: Bilateral breath sounds clear to auscultation [] Abdomen: Bowel sounds normal, soft, tenderness to LUQ with palpation, no masses , no pulsatile masses. [] Skin: Warm, dry, no erythema, no rash. [] Back: No tenderness, no CVA tenderness. [] Extremities: No tenderness, no cyanosis, no clubbing, ROM intact, no edema. [] Neurologic: Alert and oriented X 3, normal motor function, normal sensory function, no focal deficits noted. [] Psychologic: Affect normal, judgement normal, mood normal. [] Current Patient Data Vital Signs Vital Signs Date Time Temp Pulse Resp B/P (MAP) Pulse Ox O2 Delivery O2 Flow Rate FiO2 10/02/18 19:04 20 97 Room Air 10/02/18 18:51 98.2 109 162/109 (126) 98.2 Lab Values Laboratory Tests Test 10/02/18 19:25 White Blood Count 9.7 x10^3/uL (4.0-11.0) Red Blood Count 4.53 x10^6/uL (3.50-5.40) Hemoglobin 11.5 g/dL (12.0-15.5) L Hematocrit 35.7 % (36.0-47.0) L Mean Corpuscular Volume 79 fL (79-100) Mean Corpuscular Hemoglobin 25 pg (25-35) Mean Corpuscular Hemoglobin Concent 32 g/dL (31-37) Red Cell Distribution Width 16.0 % (11.5-14.5) H Platelet Count 264 x10^3/uL (140-400) Neutrophils (%) (Auto) 68 % (31-73) Lymphocytes (%) (Auto) 22 % (24-48) L Monocytes (%) (Auto) 9 % (0-9) Eosinophils (%) (Auto) 1 % (0-3) Basophils (%) (Auto) 1 % (0-3) Neutrophils # (Auto) 6.6 x10^3uL (1.8-7.7) Lymphocytes # (Auto) 2.2 x10^3/uL (1.0-4.8) Monocytes # (Auto) 0.8 x10^3/uL (0.0-1.1) Eosinophils # (Auto) 0.1 x10^3/uL (0.0-0.7) Basophils # (Auto) 0.1 x10^3/uL (0.0-0.2) Sodium Level 142 mmol/L (136-145) Potassium Level 3.7 mmol/L (3.5-5.1) Chloride Level 106 mmol/L (98-107) Carbon Dioxide Level 23 mmol/L (21-32) Anion Gap 13 (6-14) Blood Urea Nitrogen 13 mg/dL (7-20) Creatinine 0.8 mg/dL (0.6-1.0) Estimated GFR (Cockcroft-Gault) 77.6 BUN/Creatinine Ratio 16 (6-20) Glucose Level 96 mg/dL (70-99) Calcium Level 8.8 mg/dL (8.5-10.1) Total Bilirubin 0.6 mg/dL (0.2-1.0) Aspartate Amino Transferase (AST) 31 U/L (15-37) Alanine Aminotransferase (ALT) 32 U/L (14-59) Alkaline Phosphatase 99 U/L (46-116) Total Protein 7.5 g/dL (6.4-8.2) Albumin 3.5 g/dL (3.4-5.0) Albumin/Globulin Ratio 0.9 (1.0-1.7) L Amylase Level 39 U/L (25-115) Lipase 119 U/L (73-393) Laboratory Tests 10/02/18 19:25 Laboratory Tests 10/02/18 19:25 EKG EKG [] Radiology/Procedures Radiology/Procedures [] Course & Med Decision Making Course & Med Decision Making Pertinent Labs and Imaging studies reviewed. (See chart for details) []The patient was given Zofran, fluids and morphine in the emergency department with no resolution of her symptoms. She is being admitted to Dr. Hale's service and Dr. Jimenez has been consulted. Dragon Disclaimer Dragon Disclaimer This electronic medical record was generated, in whole or in part, using a voice recognition dictation system. Departure Departure Impression: Primary Impression: Intractable abdominal pain Disposition: ADMITTED INPATIENT Admitting Physician: Tanya Hale Condition: STABLE Referrals: AIDE LOPEZ MD (PCP) SOY MCGILL APRN Oct 02, 2018 20:37
[2018-10-02] MEDS ORDERED: ZOLPIDEM 5 MG TABLET. PO PRN (20:45)
[2018-10-02] MEDS ORDERED: fentaNYL PF VIAL 100 MCG/2 ML VIAL IV PRN (20:45)
[2018-10-02] MEDS ORDERED: ONDANSETRON PF 4 MG/2 ML VIAL. IV PRN ×2 (20:45)
[2018-10-02] MEDS ORDERED: LABETALOL 20 MG/4 ML DISP.SYRIN. IVP PRN (20:45)
--- NOTE | 2018-10-02 20:53 | RAD ---
Indication: Epigastric pain for 2 days. History of hiatal hernia and acid reflux. TECHNIQUE: PA chest and 2 views of the abdomen and pelvis COMPARISON: None FINDINGS: Heart is normal in size. Lungs are clear. No pneumothorax or pleural effusion. Visualized bony thorax is within normal limits. No abnormally dilated bowel loops or air-fluid levels. No pneumoperitoneum. No abnormal calcific densities projecting over the kidneys suggest apparent renal stones. Visualized bones are within normal limits. IMPRESSION: No evidence of high-grade bowel obstruction. Electronically signed by: Rj Moody DO (10/02/2018 8:50 PM) [facility]
--- NOTE | 2018-10-02 21:08 | PDOC1 ---
History and Physical Date of Admission Date of Admission DATE: 10/02/18 TIME: 21:04 Identification/Chief Complaint Chief Complaint abd pain Source Source: Caregiver, Chart review, Patient History of Present Illness History of Present Illness 43-year-old obese female known to Dr. Jimenez, BMI 41.2, comes in because of abdominal pain she described this as left-sided the ribs and left flank. Has had numerous CAT scans in the ER so we held off on that for now, acute abdominal series pending - her blood pressure on the high side on arrival. Overtly dramatic in terms of symptoms, reports of melena? Hemoglobin 11.5 with MCV 79. We will check Hemoccult. Known to GI. Few days ago said diarrhea but not anymore. Still takes primidone Topamax etc. at home. Wants to start a liquid diet Past Medical History Pulmonary: Bronchitis CENTRAL NERVOUS SYSTEM: Migraine GI: GERD Rheumatologic: Other Past Surgical History Past Surgical History: Appendectomy, Cholecystectomy, Hysterectomy, Other Family History Family History: No Significant Social History Smoke: No ALCOHOL: occassional Drugs: Marijuana Current Medications Current Medications Current Medications Sodium Chloride 1,000 ml @ 1,000 mls/hr 1X ONCE IV Last administered on at 19:05; Start 10/02/18 at 19:00; Stop 10/02/18 at 19:59; Status DC Ondansetron HCl (Zofran) 4 mg 1X ONCE IV Last administered on 10/02/18at 19:04 ; Start 10/02/18 at 19:00; Stop 10/02/18 at 19:01; Status DC Morphine Sulfate (Morphine Sulfate) 5 mg 1X ONCE IV Last administered on at 19:04; Start 10/02/18 at 19:00; Stop 10/02/18 at 19:01; Status DC Ondansetron HCl (Zofran) 4 mg PRN Q8HRS PRN IV NAUSEA/VOMITING; Start 10/02/18 at 20:45; Stop 10/02/18 at 20:45; Status DC Morphine Sulfate (Morphine Sulfate) 4 mg PRN Q2HR PRN IV PAIN; Start 10/02/18 at 20:45; Stop 10/03/18 at 20:44 Fentanyl Citrate (Fentanyl 2ml Vial) 50 mcg PRN Q1HR PRN IV PAIN; Start at 20:45; Stop 10/03/18 at 20:44 Sodium Chloride 1,000 ml @ 125 mls/hr Q8H IV ; Start 10/02/18 at 20:38; Stop at 20:37 Ondansetron HCl (Zofran) 4 mg PRN Q6HRS PRN IV NAUSEA/VOMITING; Start 10/02/18 at 20:45 Pantoprazole Sodium (Protonix) 40 mg DAILYAC PO ; Start 10/03/18 at 07:30 Labetalol HCl (Normodyne Iv Push) 10 mg PRN Q2HR PRN IVP HYPERTENSION, SEE COMMENTS; Start 10/02/18 at 20:45 Zolpidem Tartrate (Ambien) 5 mg PRN QHS PRN PO INSOMNIA; Start 10/02/18 at 20: 45 Oxycodone/ Acetaminophen (Percocet 5/325) 1 tab PRN Q4HRS PRN PO PAIN; Start at 20:45 Sertraline HCl (Zoloft) 50 mg DAILY PO ; Start 10/03/18 at 09:00; Status UNV Non-Formulary Medication (Erythromycin Base (Erythromycin)) 250 mg BID PO ; Start 10/02/18 at 21:00; Status UNV Oxycodone HCl (Roxicodone) 5 mg PRN Q6HRS PRN PO PAIN 2ND CHOICE; Start at 21:00 Non-Formulary Medication (Primidone ) 50 mg BID PO ; Start 10/02/18 at 21:00; Status UNV Non-Formulary Medication (Topiramate ) 50 mg BID PO ; Start 10/02/18 at 21:00; Status UNV Active Scripts Active Erythromycin (Erythromycin Base) 250 Mg Capsule.dr 250 Mg PO BID 14 Days Oxycodone Hcl 5 Mg Capsule 5 Mg PO PRN Q6HRS PRN 7 Days Reported Sertraline Hcl 50 Mg Tablet 50 Mg PO DAILY Protonix (Pantoprazole Sodium) 20 Mg Tablet.dr 40 Mg PO DAILYAC Topiramate 50 Mg Tablet 50 Mg PO BID Primidone 50 Mg Tablet 50 Mg PO BID Zoloft (Sertraline Hcl) 50 Mg Tablet 50 Mg PO DAILY Allergies Allergies: Coded Allergies: No Known Drug Allergies (Unverified , 09/18/15) ROS Review of System As per history of present illness, the rest of ROS 14 point negative Physical Exam General: Alert, Oriented X3, Cooperative, No acute distress HEENT: Atraumatic, PERRLA, EOMI Lungs: Clear to auscultation, Normal air movement Heart: S1S2, RRR, no thrills, no rubs, no gallops, no murmurs Cardiovascular: S1, S2 Breasts: Normal Abdomen: Normal bowel sounds, Soft, No hepatosplenomegaly, No masses, Other ( no guarding, voluntary tenderness on deep palpation, normoactive bowel sounds) Rectal Exam: not examined PELVIC: Nml ext genitalia Extremities: No clubbing, No cyanosis, No edema, Normal pulses, No tenderness/ swelling Skin: No rashes, No breakdown, No significant lesion Neuro: Normal gait, Normal speech, Strength at 5/5 X4 ext, Normal tone, Sensation intact, Cranial nerves 3-12 NL, Reflexes 2+ Psych/Mental Status: Mental status NL, Mood NL Vitals Vitals Vital Signs Date Time Temp Pulse Resp B/P (MAP) Pulse Ox O2 Delivery O2 Flow Rate FiO2 10/02/18 19:04 20 97 Room Air 10/02/18 18:51 98.2 109 162/109 (126) 98.2 Labs Labs Laboratory Tests Test 10/02/18 19:25 White Blood Count 9.7 x10^3/uL (4.0-11.0) Red Blood Count 4.53 x10^6/uL (3.50-5.40) Hemoglobin 11.5 g/dL (12.0-15.5) Hematocrit 35.7 % (36.0-47.0) Mean Corpuscular Volume 79 fL (79-100) Mean Corpuscular Hemoglobin 25 pg (25-35) Mean Corpuscular Hemoglobin Concent 32 g/dL (31-37) Red Cell Distribution Width 16.0 % (11.5-14.5) Platelet Count 264 x10^3/uL (140-400) Neutrophils (%) (Auto) 68 % (31-73) Lymphocytes (%) (Auto) 22 % (24-48) Monocytes (%) (Auto) 9 % (0-9) Eosinophils (%) (Auto) 1 % (0-3) Basophils (%) (Auto) 1 % (0-3) Neutrophils # (Auto) 6.6 x10^3uL (1.8-7.7) Lymphocytes # (Auto) 2.2 x10^3/uL (1.0-4.8) Monocytes # (Auto) 0.8 x10^3/uL (0.0-1.1) Eosinophils # (Auto) 0.1 x10^3/uL (0.0-0.7) Basophils # (Auto) 0.1 x10^3/uL (0.0-0.2) Sodium Level 142 mmol/L (136-145) Potassium Level 3.7 mmol/L (3.5-5.1) Chloride Level 106 mmol/L (98-107) Carbon Dioxide Level 23 mmol/L (21-32) Anion Gap 13 (6-14) Blood Urea Nitrogen 13 mg/dL (7-20) Creatinine 0.8 mg/dL (0.6-1.0) Estimated GFR (Cockcroft-Gault) 77.6 BUN/Creatinine Ratio 16 (6-20) Glucose Level 96 mg/dL (70-99) Calcium Level 8.8 mg/dL (8.5-10.1) Total Bilirubin 0.6 mg/dL (0.2-1.0) Aspartate Amino Transf (AST/SGOT) 31 U/L (15-37) Alanine Aminotransferase (ALT/SGPT) 32 U/L (14-59) Alkaline Phosphatase 99 U/L (46-116) Total Protein 7.5 g/dL (6.4-8.2) Albumin 3.5 g/dL (3.4-5.0) Albumin/Globulin Ratio 0.9 (1.0-1.7) Amylase Level 39 U/L (25-115) Lipase 119 U/L (73-393) Laboratory Tests Test 10/02/18 19:25 White Blood Count 9.7 x10^3/uL (4.0-11.0) Red Blood Count 4.53 x10^6/uL (3.50-5.40) Hemoglobin 11.5 g/dL (12.0-15.5) Hematocrit 35.7 % (36.0-47.0) Mean Corpuscular Volume 79 fL (79-100) Mean Corpuscular Hemoglobin 25 pg (25-35) Mean Corpuscular Hemoglobin Concent 32 g/dL (31-37) Red Cell Distribution Width 16.0 % (11.5-14.5) Platelet Count 264 x10^3/uL (140-400) Neutrophils (%) (Auto) 68 % (31-73) Lymphocytes (%) (Auto) 22 % (24-48) Monocytes (%) (Auto) 9 % (0-9) Eosinophils (%) (Auto) 1 % (0-3) Basophils (%) (Auto) 1 % (0-3) Neutrophils # (Auto) 6.6 x10^3uL (1.8-7.7) Lymphocytes # (Auto) 2.2 x10^3/uL (1.0-4.8) Monocytes # (Auto) 0.8 x10^3/uL (0.0-1.1) Eosinophils # (Auto) 0.1 x10^3/uL (0.0-0.7) Basophils # (Auto) 0.1 x10^3/uL (0.0-0.2) Sodium Level 142 mmol/L (136-145) Potassium Level 3.7 mmol/L (3.5-5.1) Chloride Level 106 mmol/L (98-107) Carbon Dioxide Level 23 mmol/L (21-32) Anion Gap 13 (6-14) Blood Urea Nitrogen 13 mg/dL (7-20) Creatinine 0.8 mg/dL (0.6-1.0) Estimated GFR (Cockcroft-Gault) 77.6 BUN/Creatinine Ratio 16 (6-20) Glucose Level 96 mg/dL (70-99) Calcium Level 8.8 mg/dL (8.5-10.1) Total Bilirubin 0.6 mg/dL (0.2-1.0) Aspartate Amino Transf (AST/SGOT) 31 U/L (15-37) Alanine Aminotransferase (ALT/SGPT) 32 U/L (14-59) Alkaline Phosphatase 99 U/L (46-116) Total Protein 7.5 g/dL (6.4-8.2) Albumin 3.5 g/dL (3.4-5.0) Albumin/Globulin Ratio 0.9 (1.0-1.7) Amylase Level 39 U/L (25-115) Lipase 119 U/L (73-393) VTE Prophylaxis Ordered VTE Prophylaxis Devices: Yes VTE Pharmacological Prophylaxi: Yes Assessment/Plan Assessment/Plan Acute on chronic abdominal pain with negative CAT scans and workup in the past Obesity, BMI 41.2 Possibly narcotic dependence Reports of melena ? check stool occult Accel hypertension POA secondary to pain Plan: pain control, liquid diet then ADA T GI consult Labetalol when necessary I have reconciled home meds POssibly only OBS status JASWINDER STACY MD Oct 02, 2018 21:08
[2018-10-02 22:00] VITALS: BP 146/91
[2018-10-02] MEDS: MORPHINE SULFATE 4 MG/ML VIAL. IV PRN (22:12)
[2018-10-02] MEDS: IV NORMAL SALINE 1000ML BAG 1,000 ML IV SCH (22:12)
[2018-10-02] MEDS: ERYTHROMYCIN BASE 250 MG TABLET PO SCH (22:13)
[2018-10-02] MEDS: TOPIRAMATE 25 MG TABLET. PO SCH (22:14)
[2018-10-02] MEDS: PRIMIDONE 50 MG TABLET PO SCH (22:14)
[2018-10-03] MEDS: MORPHINE SULFATE 4 MG/ML VIAL. IV PRN ×4 (01:03→09:52)
[2018-10-03 03:55] VITALS: BP 151/91
[2018-10-03] MEDS: IV NORMAL SALINE 1000ML BAG 1,000 ML IV SCH ×2 (04:38→12:14)
[2018-10-03 05:12] LABS: BASO # 0.1 x10^3/uL (0.0-0.2); BASO % 1 % (0-3); EOS # 0.1 x10^3/uL (0.0-0.7); EOS % 1 % (0-3); HEMATOCRIT 35.8 % (36.0-47.0); HEMOGLOBIN 11.5 g/dL (12.0-15.5); LYMPH # 3.3 x10^3/uL (1.0-4.8); LYMPH % 36 % (24-48); MEAN CORPUSCULAR HEMOGLOBIN 26 pg (25-35); MEAN CORPUSCULAR HGB CONC 32 g/dL (31-37); MEAN CORPUSCULAR VOLUME 79 fL (79-100); MONO # 0.8 x10^3/uL (0.0-1.1); MONO % 9 % (0-9); NEUT # 4.8 x10^3uL (1.8-7.7); NEUT % 53 % (31-73); PLATELET COUNT 250 x10^3/uL (140-400); RED BLOOD COUNT 4.52 x10^6/uL (3.50-5.40); WHITE BLOOD COUNT 9.1 x10^3/uL (4.0-11.0)
[2018-10-03 05:15] LABS: CALCIUM 8.9 mg/dL (8.5-10.1); CREATININE 0.7 mg/dL (0.6-1.0); GFR 90.5; POTASSIUM 3.8 mmol/L (3.5-5.1)
[2018-10-03 07:00] VITALS: BP 139/84
--- NOTE | 2018-10-03 08:57 | PDOC ---
PROGRESS NOTES Chief Complaint Chief Complaint Past Medical History Pulmonary: Bronchitis, CENTRAL NERVOUS SYSTEM: Migraine GI: GERD gastroparesis Rheumatologic: Other Past Surgical History Past Surgical History: Appendectomy, Cholecystectomy, Hysterectomy, Other Family History Family History: No Significant Social History Smoke: No ALCOHOL: occassional Drugs: Marijuana History of Present Illness History of Present Illness Assessment/Plan Assessment/Plan Acute on chronic abdominal pain with negative CAT scans and workup in the past Obesity, BMI 41.2 Possibly narcotic dependence Reports of melena ? check stool occult Accel hypertension POA secondary to pain No evidence of high-grade bowel obstruction. Gastroparesis. Migraine headache. Gastroesophageal reflux disease. Nonalcoholic steatohepatitis. Diverticulosis. Obstructive sleep apnea. Polycystic ovary syndrome. 10/03 not improved, vomited her oatmeal this AM Plan: iv reglan 10MG Q 6 HRS ua d/c iv narcotics pain control, liquid diet then ADA T GI consult pending Labetalol when necessary , bp better now 10/03 home meds OBS status Vitals Vitals Vital Signs Date Time Temp Pulse Resp B/P (MAP) Pulse Ox O2 Delivery O2 Flow Rate FiO2 10/03/18 07:15 18 96 Room Air 10/03/18 07:00 97.6 70 139/84 (102) 97.6 Physical Exam General: Alert, Oriented X3, Cooperative, No acute distress Heart: Regular rate, Normal S1, No murmurs Lungs: Clear Abdomen: Normal bowel sounds, Soft, No hepatosplenomegaly, No masses, Other ( no guarding, voluntary tenderness on deep palpation, normoactive bowel sounds) Extremities: No clubbing, No cyanosis, No edema, Normal pulses, No tenderness/ swelling Skin: No rashes, No breakdown, No significant lesion Labs LABS REASON: abdominal pain PROCEDURE: ACUTE ABDOMEN SERIES Indication: Epigastric pain for 2 days. History of hiatal hernia and acid reflux. TECHNIQUE: PA chest and 2 views of the abdomen and pelvis COMPARISON: None FINDINGS: Heart is normal in size. Lungs are clear. No pneumothorax or pleural effusion. Visualized bony thorax is within normal limits. No abnormally dilated bowel loops or air-fluid levels. No pneumoperitoneum. No abnormal calcific densities projecting over the kidneys suggest apparent renal stones. Visualized bones are within normal limits. IMPRESSION: No evidence of high-grade bowel obstruction. Electronically signed by: Rj Dow DO (10/02/2018 8:50 PM) [facility] DICTATED and SIGNED BY: RJ DOW Laboratory Tests Test 10/02/18 19:25 10/03/18 03:50 White Blood Count 9.7 x10^3/uL (4.0-11.0) 9.1 x10^3/uL (4.0-11.0) Red Blood Count 4.53 x10^6/uL (3.50-5.40) 4.52 x10^6/uL (3.50-5.40) Hemoglobin 11.5 g/dL (12.0-15.5) 11.5 g/dL (12.0-15.5) Hematocrit 35.7 % (36.0-47.0) 35.8 % (36.0-47.0) Mean Corpuscular Volume 79 fL (79-100) 79 fL (79-100) Mean Corpuscular Hemoglobin 25 pg (25-35) 26 pg (25-35) Mean Corpuscular Hemoglobin Concent 32 g/dL (31-37) 32 g/dL (31-37) Red Cell Distribution Width 16.0 % (11.5-14.5) 16.0 % (11.5-14.5) Platelet Count 264 x10^3/uL (140-400) 250 x10^3/uL (140-400) Neutrophils (%) (Auto) 68 % (31-73) 53 % (31-73) Lymphocytes (%) (Auto) 22 % (24-48) 36 % (24-48) Monocytes (%) (Auto) 9 % (0-9) 9 % (0-9) Eosinophils (%) (Auto) 1 % (0-3) 1 % (0-3) Basophils (%) (Auto) 1 % (0-3) 1 % (0-3) Neutrophils # (Auto) 6.6 x10^3uL (1.8-7.7) 4.8 x10^3uL (1.8-7.7) Lymphocytes # (Auto) 2.2 x10^3/uL (1.0-4.8) 3.3 x10^3/uL (1.0-4.8) Monocytes # (Auto) 0.8 x10^3/uL (0.0-1.1) 0.8 x10^3/uL (0.0-1.1) Eosinophils # (Auto) 0.1 x10^3/uL (0.0-0.7) 0.1 x10^3/uL (0.0-0.7) Basophils # (Auto) 0.1 x10^3/uL (0.0-0.2) 0.1 x10^3/uL (0.0-0.2) Sodium Level 142 mmol/L (136-145) 142 mmol/L (136-145) Potassium Level 3.7 mmol/L (3.5-5.1) 3.8 mmol/L (3.5-5.1) Chloride Level 106 mmol/L (98-107) 108 mmol/L (98-107) Carbon Dioxide Level 23 mmol/L (21-32) 24 mmol/L (21-32) Anion Gap 13 (6-14) 10 (6-14) Blood Urea Nitrogen 13 mg/dL (7-20) 10 mg/dL (7-20) Creatinine 0.8 mg/dL (0.6-1.0) 0.7 mg/dL (0.6-1.0) Estimated GFR (Cockcroft-Gault) 77.6 90.5 BUN/Creatinine Ratio 16 (6-20) Glucose Level 96 mg/dL (70-99) 104 mg/dL (70-99) Calcium Level 8.8 mg/dL (8.5-10.1) 8.9 mg/dL (8.5-10.1) Total Bilirubin 0.6 mg/dL (0.2-1.0) Aspartate Amino Transf (AST/SGOT) 31 U/L (15-37) Alanine Aminotransferase (ALT/SGPT) 32 U/L (14-59) Alkaline Phosphatase 99 U/L (46-116) Total Protein 7.5 g/dL (6.4-8.2) Albumin 3.5 g/dL (3.4-5.0) Albumin/Globulin Ratio 0.9 (1.0-1.7) Amylase Level 39 U/L (25-115) Lipase 119 U/L (73-393) Comment Review of Relevant I have reviewed the following items jesus (where applicable) has been applied. Labs Laboratory Tests Test 10/02/18 19:25 10/03/18 03:50 White Blood Count 9.7 x10^3/uL (4.0-11.0) 9.1 x10^3/uL (4.0-11.0) Red Blood Count 4.53 x10^6/uL (3.50-5.40) 4.52 x10^6/uL (3.50-5.40) Hemoglobin 11.5 g/dL (12.0-15.5) 11.5 g/dL (12.0-15.5) Hematocrit 35.7 % (36.0-47.0) 35.8 % (36.0-47.0) Mean Corpuscular Volume 79 fL (79-100) 79 fL (79-100) Mean Corpuscular Hemoglobin 25 pg (25-35) 26 pg (25-35) Mean Corpuscular Hemoglobin Concent 32 g/dL (31-37) 32 g/dL (31-37) Red Cell Distribution Width 16.0 % (11.5-14.5) 16.0 % (11.5-14.5) Platelet Count 264 x10^3/uL (140-400) 250 x10^3/uL (140-400) Neutrophils (%) (Auto) 68 % (31-73) 53 % (31-73) Lymphocytes (%) (Auto) 22 % (24-48) 36 % (24-48) Monocytes (%) (Auto) 9 % (0-9) 9 % (0-9) Eosinophils (%) (Auto) 1 % (0-3) 1 % (0-3) Basophils (%) (Auto) 1 % (0-3) 1 % (0-3) Neutrophils # (Auto) 6.6 x10^3uL (1.8-7.7) 4.8 x10^3uL (1.8-7.7) Lymphocytes # (Auto) 2.2 x10^3/uL (1.0-4.8) 3.3 x10^3/uL (1.0-4.8) Monocytes # (Auto) 0.8 x10^3/uL (0.0-1.1) 0.8 x10^3/uL (0.0-1.1) Eosinophils # (Auto) 0.1 x10^3/uL (0.0-0.7) 0.1 x10^3/uL (0.0-0.7) Basophils # (Auto) 0.1 x10^3/uL (0.0-0.2) 0.1 x10^3/uL (0.0-0.2) Sodium Level 142 mmol/L (136-145) 142 mmol/L (136-145) Potassium Level 3.7 mmol/L (3.5-5.1) 3.8 mmol/L (3.5-5.1) Chloride Level 106 mmol/L (98-107) 108 mmol/L (98-107) Carbon Dioxide Level 23 mmol/L (21-32) 24 mmol/L (21-32) Anion Gap 13 (6-14) 10 (6-14) Blood Urea Nitrogen 13 mg/dL (7-20) 10 mg/dL (7-20) Creatinine 0.8 mg/dL (0.6-1.0) 0.7 mg/dL (0.6-1.0) Estimated GFR (Cockcroft-Gault) 77.6 90.5 BUN/Creatinine Ratio 16 (6-20) Glucose Level 96 mg/dL (70-99) 104 mg/dL (70-99) Calcium Level 8.8 mg/dL (8.5-10.1) 8.9 mg/dL (8.5-10.1) Total Bilirubin 0.6 mg/dL (0.2-1.0) Aspartate Amino Transf (AST/SGOT) 31 U/L (15-37) Alanine Aminotransferase (ALT/SGPT) 32 U/L (14-59) Alkaline Phosphatase 99 U/L (46-116) Total Protein 7.5 g/dL (6.4-8.2) Albumin 3.5 g/dL (3.4-5.0) Albumin/Globulin Ratio 0.9 (1.0-1.7) Amylase Level 39 U/L (25-115) Lipase 119 U/L (73-393) Laboratory Tests Test 10/02/18 19:25 10/03/18 03:50 White Blood Count 9.7 x10^3/uL (4.0-11.0) 9.1 x10^3/uL (4.0-11.0) Red Blood Count 4.53 x10^6/uL (3.50-5.40) 4.52 x10^6/uL (3.50-5.40) Hemoglobin 11.5 g/dL (12.0-15.5) 11.5 g/dL (12.0-15.5) Hematocrit 35.7 % (36.0-47.0) 35.8 % (36.0-47.0) Mean Corpuscular Volume 79 fL (79-100) 79 fL (79-100) Mean Corpuscular Hemoglobin 25 pg (25-35) 26 pg (25-35) Mean Corpuscular Hemoglobin Concent 32 g/dL (31-37) 32 g/dL (31-37) Red Cell Distribution Width 16.0 % (11.5-14.5) 16.0 % (11.5-14.5) Platelet Count 264 x10^3/uL (140-400) 250 x10^3/uL (140-400) Neutrophils (%) (Auto) 68 % (31-73) 53 % (31-73) Lymphocytes (%) (Auto) 22 % (24-48) 36 % (24-48) Monocytes (%) (Auto) 9 % (0-9) 9 % (0-9) Eosinophils (%) (Auto) 1 % (0-3) 1 % (0-3) Basophils (%) (Auto) 1 % (0-3) 1 % (0-3) Neutrophils # (Auto) 6.6 x10^3uL (1.8-7.7) 4.8 x10^3uL (1.8-7.7) Lymphocytes # (Auto) 2.2 x10^3/uL (1.0-4.8) 3.3 x10^3/uL (1.0-4.8) Monocytes # (Auto) 0.8 x10^3/uL (0.0-1.1) 0.8 x10^3/uL (0.0-1.1) Eosinophils # (Auto) 0.1 x10^3/uL (0.0-0.7) 0.1 x10^3/uL (0.0-0.7) Basophils # (Auto) 0.1 x10^3/uL (0.0-0.2) 0.1 x10^3/uL (0.0-0.2) Sodium Level 142 mmol/L (136-145) 142 mmol/L (136-145) Potassium Level 3.7 mmol/L (3.5-5.1) 3.8 mmol/L (3.5-5.1) Chloride Level 106 mmol/L (98-107) 108 mmol/L (98-107) Carbon Dioxide Level 23 mmol/L (21-32) 24 mmol/L (21-32) Anion Gap 13 (6-14) 10 (6-14) Blood Urea Nitrogen 13 mg/dL (7-20) 10 mg/dL (7-20) Creatinine 0.8 mg/dL (0.6-1.0) 0.7 mg/dL (0.6-1.0) Estimated GFR (Cockcroft-Gault) 77.6 90.5 BUN/Creatinine Ratio 16 (6-20) Glucose Level 96 mg/dL (70-99) 104 mg/dL (70-99) Calcium Level 8.8 mg/dL (8.5-10.1) 8.9 mg/dL (8.5-10.1) Total Bilirubin 0.6 mg/dL (0.2-1.0) Aspartate Amino Transf (AST/SGOT) 31 U/L (15-37) Alanine Aminotransferase (ALT/SGPT) 32 U/L (14-59) Alkaline Phosphatase 99 U/L (46-116) Total Protein 7.5 g/dL (6.4-8.2) Albumin 3.5 g/dL (3.4-5.0) Albumin/Globulin Ratio 0.9 (1.0-1.7) Amylase Level 39 U/L (25-115) Lipase 119 U/L (73-393) Medications Current Medications Sodium Chloride 1,000 ml @ 1,000 mls/hr 1X ONCE IV Last administered on at 19:05; Start 10/02/18 at 19:00; Stop 10/02/18 at 19:59; Status DC Ondansetron HCl (Zofran) 4 mg 1X ONCE IV Last administered on 10/02/18at 19:04 ; Start 10/02/18 at 19:00; Stop 10/02/18 at 19:01; Status DC Morphine Sulfate (Morphine Sulfate) 5 mg 1X ONCE IV Last administered on at 19:04; Start 10/02/18 at 19:00; Stop 10/02/18 at 19:01; Status DC Ondansetron HCl (Zofran) 4 mg PRN Q8HRS PRN IV NAUSEA/VOMITING; Start 10/02/18 at 20:45; Stop 10/02/18 at 20:45; Status DC Morphine Sulfate (Morphine Sulfate) 4 mg PRN Q2HR PRN IV PAIN Last administered on 10/03/18at 07:15; Start 10/02/18 at 20:45; Stop 10/03/18 at 20:44 Fentanyl Citrate (Fentanyl 2ml Vial) 50 mcg PRN Q1HR PRN IV PAIN; Start at 20:45; Stop 10/03/18 at 20:44 Sodium Chloride 1,000 ml @ 125 mls/hr Q8H IV Last administered on 10/03/18at 04 :38; Start 10/02/18 at 20:38; Stop 10/03/18 at 20:37 Ondansetron HCl (Zofran) 4 mg PRN Q6HRS PRN IV NAUSEA/VOMITING; Start 10/02/18 at 20:45 Pantoprazole Sodium (Protonix) 40 mg DAILYAC PO ; Start 10/03/18 at 07:30 Labetalol HCl (Normodyne Iv Push) 10 mg PRN Q2HR PRN IVP HYPERTENSION, SEE COMMENTS; Start 10/02/18 at 20:45 Zolpidem Tartrate (Ambien) 5 mg PRN QHS PRN PO INSOMNIA; Start 10/02/18 at 20: 45 Oxycodone/ Acetaminophen (Percocet 5/325) 1 tab PRN Q4HRS PRN PO PAIN; Start at 20:45 Sertraline HCl (Zoloft) 50 mg DAILY PO ; Start 10/03/18 at 09:00 Erythromycin (E-Mycin) 250 mg BID PO Last administered on 10/02/18at 22:13; Start 10/02/18 at 22:00 Oxycodone HCl (Roxicodone) 5 mg PRN Q6HRS PRN PO PAIN 2ND CHOICE; Start at 21:00 Primidone (Mysoline) 50 mg BID PO Last administered on 10/02/18at 22:14; Start 10/02/18 at 22:00 Topiramate (Topamax) 50 mg BID PO Last administered on 10/02/18at 22:14; Start 10/02/18 at 22:00 Active Scripts Active Erythromycin (Erythromycin Base) 250 Mg Capsule.dr 250 Mg PO BID 14 Days Oxycodone Hcl 5 Mg Capsule 5 Mg PO PRN Q6HRS PRN 7 Days Reported Sertraline Hcl 50 Mg Tablet 50 Mg PO DAILY Protonix (Pantoprazole Sodium) 20 Mg Tablet.dr 40 Mg PO DAILYAC Topiramate 50 Mg Tablet 50 Mg PO BID Primidone 50 Mg Tablet 50 Mg PO BID Zoloft (Sertraline Hcl) 50 Mg Tablet 50 Mg PO DAILY Vitals/I & O Vital Sign - Last 24 Hours 10/02/18 10/02/18 10/02/18 10/02/18 18:51 19:00 19:04 19:30 Temp 98.2 98.2 Pulse 109 84 82 Resp 20 20 B/P (MAP) 162/109 (126) 140/88 (105) Pulse Ox 97 98 97 98 O2 Delivery Room Air Room Air Room Air Room Air 10/02/18 10/02/18 10/02/18 10/02/18 20:00 20:30 21:00 21:30 Pulse 84 84 84 82 B/P (MAP) 159/84 (109) Pulse Ox 97 96 96 96 O2 Delivery Room Air Room Air Room Air Room Air 10/02/18 10/02/18 10/02/18 10/02/18 22:00 22:00 22:00 22:12 Temp 97.9 97.9 Pulse 83 78 Resp 24 16 B/P (MAP) 146/91 (109) 150/86 (107) Pulse Ox 96 97 97 O2 Delivery Room Air Room Air Room Air 10/03/18 10/03/18 10/03/18 10/03/18 01:03 03:55 04:39 05:09 Temp 97.6 97.6 Pulse 69 Resp 18 20 16 16 B/P (MAP) 151/91 (111) Pulse Ox 97 96 96 96 O2 Delivery Room Air Room Air Room Air Room Air 10/03/18 10/03/18 07:00 07:15 Temp 97.6 97.6 Pulse 70 Resp 20 18 B/P (MAP) 139/84 (102) Pulse Ox 98 96 O2 Delivery Room Air Room Air Intake and Output 10/02/18 10/02/18 10/03/18 15:00 23:00 07:00 Intake Total 1000 ml 150 ml Output Total 0 ml Balance 1000 ml 150 ml JAVY FERRELL MD Oct 03, 2018 08:57
[2018-10-03] MEDS: PRIMIDONE 50 MG TABLET PO SCH (09:00)
[2018-10-03] MEDS: oxyCODONE/APAP 5/325 1 TAB TABLET PO PRN ×2 (09:52→17:27)
[2018-10-03] MEDS: PANTOPRAZOLE 40 MG TABLET.DR. PO SCH (09:52)
[2018-10-03] MEDS: ERYTHROMYCIN BASE 250 MG TABLET PO SCH ×2 (09:52→21:16)
[2018-10-03] MEDS: SERTRALINE 50 MG TABLET. PO SCH (09:53)
[2018-10-03] MEDS: TOPIRAMATE 25 MG TABLET. PO SCH ×2 (09:53→21:16)
[2018-10-03 10:15] LABS: FECAL OB PT NEGATIVE (NEG)
[2018-10-03 10:59] VITALS: BP 138/84
[2018-10-03] MEDS: METOCLOPRAMIDE HCL 10 MG/2 ML VIAL. IV SCH ×3 (12:56→21:16)
--- NOTE | 2018-10-03 13:00 | PDOC2 ---
GI CONSULT Reason For Consult: Intractable abd pain HPI: HPI: 43 y/o female who we've seen repeatedly. Extensive workup here as below, has also been to other ERs. After last discharge was doing okay on e-mycin 250mg BID w/ intermittent mild pain and typical diarrhea (can have 5-6 stools daily for a few days and then improvement - sees light red blood sometimes). Recurrent left-sided pain and n/v after eating at a [place] on Tuesday. Vomiting after eating this morning. Says she has an appointment at in October. Asks about having another colonoscopy. Says R[facility]ARD has helped her in the past. Had surgical eval here - R[facility] not recommended. H/o GERD controlled w/ Protonix QD. Bentyl isn't helpful. Oxycodone is. S/p cholecystectomy for stones. No pancreas history. EGD (for abd pain and diarrhea) in 2016: normal (no biopsies). Colonoscopy (for diarrhea) in 2016: mild patchy inflammation w/ granularity and decreased vascularity from sigmoid to cecum (TI biopsy showed focal ileitis with few neutrophils and random colon biopsy suggestive of early microscopic colitis w/o atypia, malignancy, or features of IBD) and internal hemorrhoids. Colestid was recommended; she did not follow-up in the office. Labs 04/2018: cortisol, HEIDY, ASMA, AMA, Hep B and C - all neg/WNL. Porphyria screen was negative in 08/2018. CT A/P in 04/2018: hepatomegaly, fat-containing periumbilical hernia, and diverticulosis. Had surgical eval - thought hernia likely not clinically relevant, also high risk for hernia recurrence w/ obesity. US in 04/2018: hepatic steatosis and normal CBD. MRCP (for abd pain, transaminitis) in 04/2018: s/p cholecystectomy, no biliary tract abnormality detected, hepatomegaly w/ hepatic steatosis. SBS in 08/2018: essentially normal small bowel follow-through examination. CTA A/P in 08/2018: normal CT appearance of the abdominal vasculature. CT A/P w/ oral and IV contrast 08/28/18: no acute findings. Noted hepatic steatosis, mildly distended stomach, feces and gas in the colon, stable small mesenteric lymph nodes in RLQ, and probable left kidney cyst. GES in 08/2018: 30 percent retention at 4 hours. PMH: PMH: migraines, EN, GERD, hepatic steatosis, diverticulosis, PCOS tonsillectomy, ovarian cystectomies, hysterectomy, appendectomy, cholecystectomy , bladder suspension x 2, RICHARD FH: Family History: No pertinent hx Social History: Smoke: No ALCOHOL: occassional Drugs: Marijuana (CBD oil) ROS: GEN: Denies fevers, chills, sweats HEENT: Denies blurred vision, sore throat CV: Denies chest pain RESP: Denies shortness of air, cough GI: Per HPI : Denies hematuria, dysuria ENDO: +weight loss NEURO: Denies confusion, dizziness MSK: Denies weakness, joint pain/swelling SKIN: Denies jaundice, pruritus Vitals: Vitals: Vital Signs Date Time Temp Pulse Resp B/P (MAP) Pulse Ox O2 Delivery O2 Flow Rate FiO2 10/03/18 10:59 97.8 72 18 138/84 (102) 97 Room Air 97.8 Labs: Labs: Laboratory Tests Test 10/02/18 19:25 10/03/18 03:50 10/03/18 09:45 White Blood Count 9.7 x10^3/uL (4.0-11.0) 9.1 x10^3/uL (4.0-11.0) Red Blood Count 4.53 x10^6/uL (3.50-5.40) 4.52 x10^6/uL (3.50-5.40) Hemoglobin 11.5 g/dL (12.0-15.5) 11.5 g/dL (12.0-15.5) Hematocrit 35.7 % (36.0-47.0) 35.8 % (36.0-47.0) Mean Corpuscular Volume 79 fL (79-100) 79 fL (79-100) Mean Corpuscular Hemoglobin 25 pg (25-35) 26 pg (25-35) Mean Corpuscular Hemoglobin Concent 32 g/dL (31-37) 32 g/dL (31-37) Red Cell Distribution Width 16.0 % (11.5-14.5) 16.0 % (11.5-14.5) Platelet Count 264 x10^3/uL (140-400) 250 x10^3/uL (140-400) Neutrophils (%) (Auto) 68 % (31-73) 53 % (31-73) Lymphocytes (%) (Auto) 22 % (24-48) 36 % (24-48) Monocytes (%) (Auto) 9 % (0-9) 9 % (0-9) Eosinophils (%) (Auto) 1 % (0-3) 1 % (0-3) Basophils (%) (Auto) 1 % (0-3) 1 % (0-3) Neutrophils # (Auto) 6.6 x10^3uL (1.8-7.7) 4.8 x10^3uL (1.8-7.7) Lymphocytes # (Auto) 2.2 x10^3/uL (1.0-4.8) 3.3 x10^3/uL (1.0-4.8) Monocytes # (Auto) 0.8 x10^3/uL (0.0-1.1) 0.8 x10^3/uL (0.0-1.1) Eosinophils # (Auto) 0.1 x10^3/uL (0.0-0.7) 0.1 x10^3/uL (0.0-0.7) Basophils # (Auto) 0.1 x10^3/uL (0.0-0.2) 0.1 x10^3/uL (0.0-0.2) Sodium Level 142 mmol/L (136-145) 142 mmol/L (136-145) Potassium Level 3.7 mmol/L (3.5-5.1) 3.8 mmol/L (3.5-5.1) Chloride Level 106 mmol/L (98-107) 108 mmol/L (98-107) Carbon Dioxide Level 23 mmol/L (21-32) 24 mmol/L (21-32) Anion Gap 13 (6-14) 10 (6-14) Blood Urea Nitrogen 13 mg/dL (7-20) 10 mg/dL (7-20) Creatinine 0.8 mg/dL (0.6-1.0) 0.7 mg/dL (0.6-1.0) Estimated GFR (Cockcroft-Gault) 77.6 90.5 BUN/Creatinine Ratio 16 (6-20) Glucose Level 96 mg/dL (70-99) 104 mg/dL (70-99) Calcium Level 8.8 mg/dL (8.5-10.1) 8.9 mg/dL (8.5-10.1) Total Bilirubin 0.6 mg/dL (0.2-1.0) Aspartate Amino Transf (AST/SGOT) 31 U/L (15-37) Alanine Aminotransferase (ALT/SGPT) 32 U/L (14-59) Alkaline Phosphatase 99 U/L (46-116) Total Protein 7.5 g/dL (6.4-8.2) Albumin 3.5 g/dL (3.4-5.0) Albumin/Globulin Ratio 0.9 (1.0-1.7) Amylase Level 39 U/L (25-115) Lipase 119 U/L (73-393) Stool Occult Blood Negative (NEG) Allergies: Coded Allergies: No Known Drug Allergies (Unverified , 09/18/15) Medications: Current Medications Medications (Trade) Dose Ordered Sig/Rimma Route PRN Reason Start Time Stop Time Status Last Admin Dose Admin Sodium Chloride 1,000 ml @ 1,000 mls/hr 1X ONCE IV 10/02/18 19:00 10/02/18 19:59 DC 10/02/18 19:05 Ondansetron HCl (Zofran) 4 mg 1X ONCE IV 10/02/18 19:00 10/02/18 19:01 DC 10/02/18 19:04 Morphine Sulfate (Morphine Sulfate) 5 mg 1X ONCE IV 10/02/18 19:00 10/02/18 19:01 DC 10/02/18 19:04 Morphine Sulfate (Morphine Sulfate) 4 mg PRN Q2HR PRN IV PAIN 10/02/18 20:45 10/03/18 12:29 DC 10/03/18 09:52 Sodium Chloride 1,000 ml @ 125 mls/hr Q8H IV 10/02/18 20:38 10/03/18 20:37 10/03/18 12:14 Ondansetron HCl (Zofran) 4 mg PRN Q6HRS PRN IV NAUSEA/VOMITING 10/02/18 20:45 10/03/18 09:59 Pantoprazole Sodium (Protonix) 40 mg DAILYAC PO 10/03/18 07:30 10/03/18 09:52 Oxycodone/ Acetaminophen (Percocet 5/325) 1 tab PRN Q4HRS PRN PO PAIN 10/02/18 20:45 10/03/18 09:52 Sertraline HCl (Zoloft) 50 mg DAILY PO 10/03/18 09:00 10/03/18 09:53 Erythromycin (E-Mycin) 250 mg BID PO 10/02/18 22:00 10/03/18 09:52 Primidone (Mysoline) 50 mg BID PO 10/02/18 22:00 10/03/18 10:15 DC 10/02/18 22:14 Topiramate (Topamax) 50 mg BID PO 10/02/18 22:00 10/03/18 09:53 Imaging: Imaging: Acute Abd Series 10/02/18 IMPRESSION: No evidence of high-grade bowel obstruction. PE: GEN: looks uncomfortable HEENT: Atraumatic, PERRL LUNGS: CTAB HEART: RRR ABD: NABS, S/ND, vague LUQ discomfort EXTREMITY: No edema SKIN: No rashes, no jaundice NEURO/PSYCH: A & O 3 A/P: A/P: Recurrent/chronic abd pain, n/v Gastroparesis on e-mycin Multiple abd surgeries Anemia (stable), fecal occult neg -- Supportive care per GI, follow-up at . Can change meds to IV if necessary. If diarrhea is worse than typical, could check stool studies. TYRELL QUIROZ Oct 03, 2018 13:00
[2018-10-03] MEDS: oxyCODONE IR 5 MG TABLET PO PRN ×2 (13:04→21:21)
[2018-10-03 15:00] VITALS: BP 148/83
[2018-10-03] MEDS ORDERED: PRIMIDONE 50 MG TABLET PO SCH (17:00)
[2018-10-03 19:40] VITALS: BP 117/81
[2018-10-03 23:07] VITALS: BP 134/77
[2018-10-04 03:24] VITALS: BP 142/84
[2018-10-04 07:00] VITALS: BP 127/76
--- NOTE | 2018-10-04 09:15 | PDOC ---
PROGRESS NOTES Chief Complaint Chief Complaint Past Medical History Pulmonary: Bronchitis, CENTRAL NERVOUS SYSTEM: Migraine GI: GERD gastroparesis Rheumatologic: Other Past Surgical History Past Surgical History: Appendectomy, Cholecystectomy, Hysterectomy, Other Family History Family History: No Significant Social History Smoke: No ALCOHOL: occassional Drugs: Marijuana History of Present Illness History of Present Illness Assessment/Plan Assessment/Plan Acute on chronic abdominal pain with negative CAT scans and workup in the past Obesity, BMI 41.2 Possibly narcotic dependence Reports of melena ? check stool occult Accel hypertension POA secondary to pain No evidence of high-grade bowel obstruction. Gastroparesis. Migraine headache. Gastroesophageal reflux disease. Nonalcoholic steatohepatitis. Diverticulosis. Obstructive sleep apnea. Polycystic ovary syndrome. 10/03 not improved, vomited her oatmeal this AM 10/04 FEELIN ONLY FAIR BUT WANTS TO GO HOME TODAY, OK IF EATS MOST OF HER LUNCH Plan: iv reglan 10MG Q 6 HRS ua d/c iv narcotics pain control, liquid diet then ADA T GI consult pending Labetalol when necessary , bp better now 10/03 home meds OBS status Vitals Vitals Vital Signs Date Time Temp Pulse Resp B/P (MAP) Pulse Ox O2 Delivery O2 Flow Rate FiO2 10/04/18 07:00 98.2 85 18 127/76 (93) 98 Room Air 98.2 Physical Exam General: Alert, Oriented X3, Cooperative, No acute distress Heart: Regular rate, Normal S1, Normal S2, No murmurs Lungs: Clear Abdomen: Normal bowel sounds, Soft, No hepatosplenomegaly, No masses, Other ( no guarding, voluntary tenderness on deep palpation, normoactive bowel sounds) Extremities: No clubbing, No cyanosis, No edema, Normal pulses, No tenderness/ swelling Skin: No rashes, No breakdown, No significant lesion Labs LABS Laboratory Tests Test 10/03/18 09:45 Stool Occult Blood Negative (NEG) Comment Review of Relevant I have reviewed the following items jesus (where applicable) has been applied. Labs Laboratory Tests Test 10/02/18 19:25 10/03/18 03:50 10/03/18 09:45 White Blood Count 9.7 x10^3/uL (4.0-11.0) 9.1 x10^3/uL (4.0-11.0) Red Blood Count 4.53 x10^6/uL (3.50-5.40) 4.52 x10^6/uL (3.50-5.40) Hemoglobin 11.5 g/dL (12.0-15.5) 11.5 g/dL (12.0-15.5) Hematocrit 35.7 % (36.0-47.0) 35.8 % (36.0-47.0) Mean Corpuscular Volume 79 fL (79-100) 79 fL (79-100) Mean Corpuscular Hemoglobin 25 pg (25-35) 26 pg (25-35) Mean Corpuscular Hemoglobin Concent 32 g/dL (31-37) 32 g/dL (31-37) Red Cell Distribution Width 16.0 % (11.5-14.5) 16.0 % (11.5-14.5) Platelet Count 264 x10^3/uL (140-400) 250 x10^3/uL (140-400) Neutrophils (%) (Auto) 68 % (31-73) 53 % (31-73) Lymphocytes (%) (Auto) 22 % (24-48) 36 % (24-48) Monocytes (%) (Auto) 9 % (0-9) 9 % (0-9) Eosinophils (%) (Auto) 1 % (0-3) 1 % (0-3) Basophils (%) (Auto) 1 % (0-3) 1 % (0-3) Neutrophils # (Auto) 6.6 x10^3uL (1.8-7.7) 4.8 x10^3uL (1.8-7.7) Lymphocytes # (Auto) 2.2 x10^3/uL (1.0-4.8) 3.3 x10^3/uL (1.0-4.8) Monocytes # (Auto) 0.8 x10^3/uL (0.0-1.1) 0.8 x10^3/uL (0.0-1.1) Eosinophils # (Auto) 0.1 x10^3/uL (0.0-0.7) 0.1 x10^3/uL (0.0-0.7) Basophils # (Auto) 0.1 x10^3/uL (0.0-0.2) 0.1 x10^3/uL (0.0-0.2) Sodium Level 142 mmol/L (136-145) 142 mmol/L (136-145) Potassium Level 3.7 mmol/L (3.5-5.1) 3.8 mmol/L (3.5-5.1) Chloride Level 106 mmol/L (98-107) 108 mmol/L (98-107) Carbon Dioxide Level 23 mmol/L (21-32) 24 mmol/L (21-32) Anion Gap 13 (6-14) 10 (6-14) Blood Urea Nitrogen 13 mg/dL (7-20) 10 mg/dL (7-20) Creatinine 0.8 mg/dL (0.6-1.0) 0.7 mg/dL (0.6-1.0) Estimated GFR (Cockcroft-Gault) 77.6 90.5 BUN/Creatinine Ratio 16 (6-20) Glucose Level 96 mg/dL (70-99) 104 mg/dL (70-99) Calcium Level 8.8 mg/dL (8.5-10.1) 8.9 mg/dL (8.5-10.1) Total Bilirubin 0.6 mg/dL (0.2-1.0) Aspartate Amino Transf (AST/SGOT) 31 U/L (15-37) Alanine Aminotransferase (ALT/SGPT) 32 U/L (14-59) Alkaline Phosphatase 99 U/L (46-116) Total Protein 7.5 g/dL (6.4-8.2) Albumin 3.5 g/dL (3.4-5.0) Albumin/Globulin Ratio 0.9 (1.0-1.7) Amylase Level 39 U/L (25-115) Lipase 119 U/L (73-393) Stool Occult Blood Negative (NEG) Laboratory Tests Test 10/03/18 09:45 Stool Occult Blood Negative (NEG) Medications Current Medications Sodium Chloride 1,000 ml @ 1,000 mls/hr 1X ONCE IV Last administered on at 19:05; Start 10/02/18 at 19:00; Stop 10/02/18 at 19:59; Status DC Ondansetron HCl (Zofran) 4 mg 1X ONCE IV Last administered on 10/02/18at 19:04 ; Start 10/02/18 at 19:00; Stop 10/02/18 at 19:01; Status DC Morphine Sulfate (Morphine Sulfate) 5 mg 1X ONCE IV Last administered on at 19:04; Start 10/02/18 at 19:00; Stop 10/02/18 at 19:01; Status DC Ondansetron HCl (Zofran) 4 mg PRN Q8HRS PRN IV NAUSEA/VOMITING; Start 10/02/18 at 20:45; Stop 10/02/18 at 20:45; Status DC Morphine Sulfate (Morphine Sulfate) 4 mg PRN Q2HR PRN IV PAIN Last administered on 10/03/18 09:52; Start 10/02/18 at 20:45; Stop 10/03/18 at 12:29 ; Status DC Fentanyl Citrate (Fentanyl 2ml Vial) 50 mcg PRN Q1HR PRN IV PAIN; Start at 20:45; Stop 10/03/18 at 12:29; Status DC Sodium Chloride 1,000 ml @ 125 mls/hr Q8H IV Last administered on 10/03/18at 12 :14; Start 10/02/18 at 20:38; Stop 10/03/18 at 20:37; Status DC Ondansetron HCl (Zofran) 4 mg PRN Q6HRS PRN IV NAUSEA/VOMITING Last administered on 10/03/18 09:59; Start 10/02/18 at 20:45 Pantoprazole Sodium (Protonix) 40 mg DAILYAC PO Last administered on 10/03/18 09:52; Start 10/03/18 at 07:30 Labetalol HCl (Normodyne Iv Push) 10 mg PRN Q2HR PRN IVP HYPERTENSION, SEE COMMENTS; Start 10/02/18 at 20:45 Zolpidem Tartrate (Ambien) 5 mg PRN QHS PRN PO INSOMNIA; Start 10/02/18 at 20: 45 Oxycodone/ Acetaminophen (Percocet 5/325) 1 tab PRN Q4HRS PRN PO PAIN Last administered on 10/03/18 17:27; Start 10/02/18 at 20:45 Sertraline HCl (Zoloft) 50 mg DAILY PO Last administered on 10/03/18 09:53; Start 10/03/18 at 09:00 Erythromycin (E-Mycin) 250 mg BID PO Last administered on 10/03/18 21:16; Start 10/02/18 at 22:00 Oxycodone HCl (Roxicodone) 5 mg PRN Q6HRS PRN PO PAIN 2ND CHOICE Last administered on 10/03/18 21:21; Start 10/02/18 at 21:00 Primidone (Mysoline) 50 mg BID PO Last administered on 10/02/18at 22:14; Start 10/02/18 at 22:00; Stop 10/03/18 at 10:15; Status DC Topiramate (Topamax) 50 mg BID PO Last administered on 10/03/18 21:16; Start 10/02/18 at 22:00 Primidone (Mysoline) 50 mg DAILYWSUP PO Last administered on 10/03/18 17:28; Start 10/03/18 at 17:00 Metoclopramide HCl (Reglan Vial) 10 mg QIDACHS IV Last administered on at 21:16; Start 10/03/18 at 13:00 Active Scripts Active Erythromycin (Erythromycin Base) 250 Mg Capsule.dr 250 Mg PO BID 14 Days Oxycodone Hcl 5 Mg Capsule 5 Mg PO PRN Q6HRS PRN 7 Days Reported Sertraline Hcl 50 Mg Tablet 50 Mg PO DAILY Protonix (Pantoprazole Sodium) 20 Mg Tablet.dr 40 Mg PO DAILYAC Topiramate 50 Mg Tablet 50 Mg PO BID Primidone 50 Mg Tablet 50 Mg PO DAILYWSUP Zoloft (Sertraline Hcl) 50 Mg Tablet 50 Mg PO DAILY Vitals/I & O Vital Sign - Last 24 Hours 10/03/18 10/03/18 10/03/18 10/03/18 09:52 10:59 15:00 19:40 Temp 97.8 98.6 97.9 97.8 98.6 97.9 Pulse 72 82 83 Resp 18 18 18 B/P (MAP) 138/84 (102) 148/83 (104) 117/81 (93) Pulse Ox 97 97 94 O2 Delivery Room Air Room Air Room Air Room Air 10/03/18 10/03/18 10/03/18 10/03/18 20:00 21:21 22:21 23:07 Temp 97.8 97.8 Pulse 70 Resp 18 18 18 B/P (MAP) 134/77 (96) Pulse Ox 96 96 94 O2 Delivery Room Air Room Air Room Air 10/04/18 10/04/18 03:24 07:00 Temp 98.1 98.2 98.1 98.2 Pulse 82 85 Resp 18 18 B/P (MAP) 142/84 (103) 127/76 (93) Pulse Ox 96 98 O2 Delivery Room Air Room Air Intake and Output 10/03/18 10/03/18 10/04/18 15:00 23:00 07:00 Intake Total 360 ml 280 ml 350 ml Output Total 650 ml Balance 360 ml -370 ml 350 ml JAVY FERRELL MD Oct 04, 2018 09:15
[2018-10-04] MEDS: ERYTHROMYCIN BASE 250 MG TABLET PO SCH (09:39)
[2018-10-04] MEDS: oxyCODONE/APAP 5/325 1 TAB TABLET PO PRN (09:40)
[2018-10-04] MEDS: PANTOPRAZOLE 40 MG TABLET.DR. PO SCH (09:40)
[2018-10-04] MEDS: TOPIRAMATE 25 MG TABLET. PO SCH (09:40)
[2018-10-04] MEDS: SERTRALINE 50 MG TABLET. PO SCH (09:40)
[2018-10-04] MEDS: METOCLOPRAMIDE HCL 10 MG/2 ML VIAL. IV SCH (09:40)
--- NOTE | 2018-10-04 14:00 | NUR ---
Patient discharged to home. Discharge instructions, medications, and follow up appointments discussed with patient. Patient verbalized understanding. Discharge instructions paper given to patient. IV discontinued. Patient assisted out in wheelchair with staff and patient family at this time.
--- NOTE | 2018-10-04 14:16 | PDOC ---
Subjective: Subjective: Feeling better but not great. Would like to go home but doesn't want to go back to work this week. Not much of an appetite but no vomiting. Had a couple stools. Objective: Vital Signs: Vital Signs Date Time Temp Pulse Resp B/P (MAP) Pulse Ox O2 Delivery O2 Flow Rate FiO2 10/04/18 08:00 Room Air 10/04/18 07:00 98.2 85 18 127/76 (93) 98 98.2 PE: GEN: NAD LUNGS: CTAB HEART: RRR ABD: soft, doesn't seem tender NEURO/PSYCH: A & O 3, depressed A/P: Recurrent/chronic abd pain, n/v - better -h/o gastroparesis and multiple abd surgeries ?depression -- DC per primary. Follow-up w/ [facility] for second opinion as planned. YTRELL QUIROZ Oct 04, 2018 14:16
--- NOTE | 2018-10-04 15:40 | PDOC3 ---
Discharge Summary Date of Admission: Oct 02, 2018 Date of Discharge: Oct 04, 2018 Follow-Up: 3-5 days Admitting Diagnosis comment: DISCHARGE DX Assessment/Plan Acute on chronic abdominal pain with negative CAT scans and workup in the past Obesity, BMI 41.2 Possibly narcotic dependence Reports of melena ? check stool occult Accel hypertension POA secondary to pain No evidence of high-grade bowel obstruction. Gastroparesis. Migraine headache. Gastroesophageal reflux disease. Nonalcoholic steatohepatitis. Diverticulosis. Obstructive sleep apnea. Polycystic ovary syndrome. 10/03 not improved, vomited her oatmeal this AM 10/04 FEELING ONLY FAIR BUT WANTS TO GO HOME TODAY, OK IF EATS MOST OF HER LUNCH Plan: iv reglan 10MG Q 6 HRS ua d/c iv narcotics pain control, liquid diet then ADA T GI consult pending Labetalol when necessary , bp better now 10/03 home meds OBS status Vitals Vitals Vital Signs Date Time Temp Pulse Resp B/P (MAP) Pulse Ox O2 Delivery O2 Flow Rate FiO2 10/04/18 07:00 98.2 85 18 127/76 (93) 98 Room Air 98.2 Physical Exam General: Alert, Oriented X3, Cooperative, No acute distress Heart: Regular rate, Normal S1, Normal S2, No murmurs Lungs: Clear Abdomen: Normal bowel sounds, Soft, No hepatosplenomegaly, No masses, Other ( no guarding, voluntary tenderness on deep palpation, normoactive bowel sounds) Extremities: No clubbing, No cyanosis, No edema, Normal pulses, No tenderness/ swelling Skin: No rashes, No breakdown, No significant lesion Brief Hospital Course Ms. Bnejamin is a 43 old [sex] who presented with [GASTROPARESIS ] CONDITION AT DISCHARGE: Improved Discharge Medications Current Medications Sodium Chloride 1,000 ml @ 1,000 mls/hr 1X ONCE IV Last administered on at 19:05; Start 10/02/18 at 19:00; Stop 10/02/18 at 19:59; Status DC Ondansetron HCl (Zofran) 4 mg 1X ONCE IV Last administered on 10/02/18at 19:04 ; Start 10/02/18 at 19:00; Stop 10/02/18 at 19:01; Status DC Morphine Sulfate (Morphine Sulfate) 5 mg 1X ONCE IV Last administered on at 19:04; Start 10/02/18 at 19:00; Stop 10/02/18 at 19:01; Status DC Ondansetron HCl (Zofran) 4 mg PRN Q8HRS PRN IV NAUSEA/VOMITING; Start 10/02/18 at 20:45; Stop 10/02/18 at 20:45; Status DC Morphine Sulfate (Morphine Sulfate) 4 mg PRN Q2HR PRN IV PAIN Last administered on 10/03/18at 09:52; Start 10/02/18 at 20:45; Stop 10/03/18 at 12:29 ; Status DC Fentanyl Citrate (Fentanyl 2ml Vial) 50 mcg PRN Q1HR PRN IV PAIN; Start at 20:45; Stop 10/03/18 at 12:29; Status DC Sodium Chloride 1,000 ml @ 125 mls/hr Q8H IV Last administered on 10/03/18at 12 :14; Start 10/02/18 at 20:38; Stop 10/03/18 at 20:37; Status DC Ondansetron HCl (Zofran) 4 mg PRN Q6HRS PRN IV NAUSEA/VOMITING Last administered on 10/03/18at 09:59; Start 10/02/18 at 20:45; Stop 10/04/18 at 15:04 ; Status DC Pantoprazole Sodium (Protonix) 40 mg DAILYAC PO Last administered on 10/04/18at 09:40; Start 10/03/18 at 07:30; Stop 10/04/18 at 15:04; Status DC Labetalol HCl (Normodyne Iv Push) 10 mg PRN Q2HR PRN IVP HYPERTENSION, SEE COMMENTS; Start 10/02/18 at 20:45; Stop 10/04/18 at 15:04; Status DC Zolpidem Tartrate (Ambien) 5 mg PRN QHS PRN PO INSOMNIA; Start 10/02/18 at 20: 45; Stop 10/04/18 at 15:04; Status DC Oxycodone/ Acetaminophen (Percocet 5/325) 1 tab PRN Q4HRS PRN PO PAIN Last administered on 10/04/18at 09:40; Start 10/02/18 at 20:45; Stop 10/04/18 at 15:04 ; Status DC Sertraline HCl (Zoloft) 50 mg DAILY PO Last administered on 10/04/18at 09:40; Start 10/03/18 at 09:00; Stop 10/04/18 at 15:04; Status DC Erythromycin (E-Mycin) 250 mg BID PO Last administered on 10/04/18at 09:39; Start 10/02/18 at 22:00; Stop 10/04/18 at 15:04; Status DC Oxycodone HCl (Roxicodone) 5 mg PRN Q6HRS PRN PO PAIN 2ND CHOICE Last administered on 10/03/18at 21:21; Start 10/02/18 at 21:00; Stop 10/04/18 at 15:04 ; Status DC Primidone (Mysoline) 50 mg BID PO Last administered on 10/02/18at 22:14; Start 10/02/18 at 22:00; Stop 10/03/18 at 10:15; Status DC Topiramate (Topamax) 50 mg BID PO Last administered on 10/04/18at 09:40; Start 10/02/18 at 22:00; Stop 10/04/18 at 15:04; Status DC Primidone (Mysoline) 50 mg DAILYWSUP PO Last administered on 10/03/18at 17:28; Start 10/03/18 at 17:00; Stop 10/04/18 at 15:04; Status DC Metoclopramide HCl (Reglan Vial) 10 mg QIDACHS IV Last administered on at 09:40; Start 10/03/18 at 13:00; Stop 10/04/18 at 15:04; Status DC Active Scripts Active Erythromycin (Erythromycin Base) 250 Mg Capsule.dr 250 Mg PO BID 14 Days Oxycodone Hcl 5 Mg Capsule 5 Mg PO PRN Q6HRS PRN 7 Days Reported Sertraline Hcl 50 Mg Tablet 50 Mg PO DAILY Protonix (Pantoprazole Sodium) 20 Mg Tablet.dr 40 Mg PO DAILYAC Topiramate 50 Mg Tablet 50 Mg PO BID Primidone 50 Mg Tablet 50 Mg PO DAILYWSUP Zoloft (Sertraline Hcl) 50 Mg Tablet 50 Mg PO DAILY Vital Signs Vital Signs Date Time Temp Pulse Resp B/P (MAP) Pulse Ox O2 Delivery O2 Flow Rate FiO2 10/04/18 08:00 Room Air 10/04/18 07:00 98.2 85 18 127/76 (93) 98 98.2 Labs Laboratory Tests Test 10/02/18 19:25 10/03/18 03:50 10/03/18 09:45 White Blood Count 9.7 x10^3/uL (4.0-11.0) 9.1 x10^3/uL (4.0-11.0) Red Blood Count 4.53 x10^6/uL (3.50-5.40) 4.52 x10^6/uL (3.50-5.40) Hemoglobin 11.5 g/dL (12.0-15.5) 11.5 g/dL (12.0-15.5) Hematocrit 35.7 % (36.0-47.0) 35.8 % (36.0-47.0) Mean Corpuscular Volume 79 fL (79-100) 79 fL (79-100) Mean Corpuscular Hemoglobin 25 pg (25-35) 26 pg (25-35) Mean Corpuscular Hemoglobin Concent 32 g/dL (31-37) 32 g/dL (31-37) Red Cell Distribution Width 16.0 % (11.5-14.5) 16.0 % (11.5-14.5) Platelet Count 264 x10^3/uL (140-400) 250 x10^3/uL (140-400) Neutrophils (%) (Auto) 68 % (31-73) 53 % (31-73) Lymphocytes (%) (Auto) 22 % (24-48) 36 % (24-48) Monocytes (%) (Auto) 9 % (0-9) 9 % (0-9) Eosinophils (%) (Auto) 1 % (0-3) 1 % (0-3) Basophils (%) (Auto) 1 % (0-3) 1 % (0-3) Neutrophils # (Auto) 6.6 x10^3uL (1.8-7.7) 4.8 x10^3uL (1.8-7.7) Lymphocytes # (Auto) 2.2 x10^3/uL (1.0-4.8) 3.3 x10^3/uL (1.0-4.8) Monocytes # (Auto) 0.8 x10^3/uL (0.0-1.1) 0.8 x10^3/uL (0.0-1.1) Eosinophils # (Auto) 0.1 x10^3/uL (0.0-0.7) 0.1 x10^3/uL (0.0-0.7) Basophils # (Auto) 0.1 x10^3/uL (0.0-0.2) 0.1 x10^3/uL (0.0-0.2) Sodium Level 142 mmol/L (136-145) 142 mmol/L (136-145) Potassium Level 3.7 mmol/L (3.5-5.1) 3.8 mmol/L (3.5-5.1) Chloride Level 106 mmol/L (98-107) 108 mmol/L (98-107) Carbon Dioxide Level 23 mmol/L (21-32) 24 mmol/L (21-32) Anion Gap 13 (6-14) 10 (6-14) Blood Urea Nitrogen 13 mg/dL (7-20) 10 mg/dL (7-20) Creatinine 0.8 mg/dL (0.6-1.0) 0.7 mg/dL (0.6-1.0) Estimated GFR (Cockcroft-Gault) 77.6 90.5 BUN/Creatinine Ratio 16 (6-20) Glucose Level 96 mg/dL (70-99) 104 mg/dL (70-99) Calcium Level 8.8 mg/dL (8.5-10.1) 8.9 mg/dL (8.5-10.1) Total Bilirubin 0.6 mg/dL (0.2-1.0) Aspartate Amino Transf (AST/SGOT) 31 U/L (15-37) Alanine Aminotransferase (ALT/SGPT) 32 U/L (14-59) Alkaline Phosphatase 99 U/L (46-116) Total Protein 7.5 g/dL (6.4-8.2) Albumin 3.5 g/dL (3.4-5.0) Albumin/Globulin Ratio 0.9 (1.0-1.7) Amylase Level 39 U/L (25-115) Lipase 119 U/L (73-393) Stool Occult Blood Negative (NEG) Allergies Allergies Coded Allergies Type Severity Reaction Last Updated Verified No Known Drug Allergies 09/18/15 No Disposition/Orders: D/C to Home Patient Instructions D/C PLANNING 36 MIN JAVY FERRELL MD Oct 04, 2018 15:40
--- NOTE | 2018-10-04 15:41 | DISCH ---
DISCHARGE INSTRUCTIONS Condition on Discharge Condition on Discharge: Stable Activity After Discharge Activity Instructions for Disc: Activity as tolerated Lifting Instructions after Dis: No heavy lifting, No pulling or pushing Exercise Instruction after Dis: Walk 10 min, 3 x per day, Progress as tolerated Driving Instructions after Dis: Do not drive today Weight Bearing Status after Di: As tolerated Diet after Discharge Diet after Discharge: GI Soft Diet Texture: Regular Swallowing Supervision: None needed Wound Incision Care Wound/Incision Care: No wound care needed Checks after Discharge Checks after discharge: Check blood press - daily Contacting the DROtilio after DC Call your doctor for: If your condition worsens Follow-Up Follow up with: Primary Care Physician Follow Up With: GI specialist at [facility] Treatment/Equipment after DC Adaptive Equipment Issued: None JAVY FERRELL MD Oct 04, 2018 15:41
== END 2018-10-04 14:00 | disposition home or self-care (01) | DRG 392 ==
LOC: ER 17:59 → 6 SOUTH 20:34
PROVIDERS: ADMIT Internal Medicine; ATTEND Internal Medicine
DX: K21.9 Gastro-esophageal reflux disease without esophagitis (principal); Z68.41 Body mass index [BMI] 40.0-44.9, adult; F11.20 Opioid dependence, uncomplicated; K31.84 Gastroparesis; E28.2 Polycystic ovarian syndrome; I10 Essential (primary) hypertension; E66.9 Obesity, unspecified; K57.90 Diverticulosis of intestine, part unspecified, without perforation or abscess without bleeding; G43.909 Migraine, unspecified, not intractable, without status migrainosus; G47.33 Obstructive sleep apnea (adult) (pediatric); K75.81 Nonalcoholic steatohepatitis (NASH); G89.29 Other chronic pain; Z79.899 Other long term (current) drug therapy; Z90.49 Acquired absence of other specified parts of digestive tract; Z90.710 Acquired absence of both cervix and uterus
CPT/HCPCS: 36415; 74022; 80048; 80053; 82150; 82274; 83690; 85025; 96361; 96374; 96375; J2270; J2405; J2765; J7030; 99285-25

== ENCOUNTER 2019-03-13 04:05 | Inpatient (IN) | payer OTHER ==
[~2019-03-13] VITALS: Ht 160 cm; Wt 103.5 kg
[~2019-03-13 04:05] MED LIST changes: -TIZA4TAB PO; +TIZA4TAB2 PO
[2019-03-13 07:00] VITALS: BP 126/67
[2019-03-13] MEDS: PANTOPRAZOLE 40 MG TABLET.DR. PO SCH (07:30)
[2019-03-13] MEDS: fentaNYL PF VIAL 100 MCG/2 ML VIAL IV PRN ×5 (07:30→20:25)
[2019-03-13] MEDS: TOPIRAMATE 25 MG TABLET. PO SCH ×2 (08:54→20:25)
--- NOTE | 2019-03-13 10:16 | PDOC2 ---
NEUROLOGY CONSULT Date of Admission Date of Admission DATE: 03/13/19 TIME: 10:08 Reason for Consult Reason for Consult: Urinary retention Referring Physician Referring Physician: Dr. Knapp Source Source: Chart review, Patient History of Present Illness History of Present Illness The patient is a 43-year-old right-handed female who follows chronically with urology regarding urinary retention issues. She had a Gómez placed recently which is causing a lot of discomfort and leakage so she went to the emergency department. Dr. Mccoy became concerned as the patient apparently told him that her legs felt weak at times, although today she says she has no trouble with her legs. Note that this patient follows with neurology regarding her chronic migraine headaches and they have never found the evidence of multiple sclerosis. Her urinary symptoms started after some bladder mesh was placed to correct urinary incontinence problems. The patient specifically denies any other neurological issues such as weakness, numbness, dysarthria, dysphagia come diplopia, or cognitive changes (except some memory problems due to topiramate). Past Medical History Cardiovascular: HTN Pulmonary: Other (Sleep apnea) CENTRAL NERVOUS SYSTEM: Migraine GI: Inflam bowel disease ( Crohn's), Irritable bowel disease Psych: Anxiety Past Surgical History Past Surgical History: Tonsillectomy, Hysterectomy Family History Family History: No pertinent hx, DM Social History Social History , rare alcohol, no tobacco, [employer] Current Medications Current Medications Current Medications Fentanyl Citrate (Fentanyl 2ml Vial) 50 mcg PRN Q3HRS PRN IV PAIN Last administered on 03/13/19at 08:28; Start 03/13/19 at 08:30 Pantoprazole Sodium (Protonix) 40 mg DAILYAC PO Last administered on 03/13/19at 08:27; Start 03/13/19 at 08:30 Topiramate (Topamax) 50 mg BID PO Last administered on 03/13/19at 08:54; Start 03/13/19 at 09:00 Sertraline HCl (Zoloft) 50 mg QHS PO ; Start 03/13/19 at 21:00 Active Scripts Active Erythromycin (Erythromycin Base) 250 Mg Capsule.dr 250 Mg PO BID 14 Days Reported Sertraline Hcl 50 Mg Tablet 50 Mg PO DAILY Protonix (Pantoprazole Sodium) 20 Mg Tablet.dr 40 Mg PO DAILYAC Topiramate 50 Mg Tablet 50 Mg PO BID Primidone 50 Mg Tablet 50 Mg PO DAILYWSUP Allergies Allergies: Coded Allergies: No Known Drug Allergies (Unverified , 09/18/15) ROS Review of System Negative for fever, chills, weight loss, shortness of breath, chest pain, indigestion, hematochezia, melena, and dysuria. Full 14-point review of systems is negative. Physical Exam Physical Examination General: Well-developed, well-nourished white female in no acute distress. Gómez in place HEENT: Normocephalic and�atraumatic. Temporal arteries�pulsatile and nontender.� Neck: Supple without bruit, no meningismus� Musculoskeletal: Stability:�see neurologic. Gait exam:�see neurologic. Tone:�see neurologic.�Strength:�see neurologic.� Neurological: Mental Status:�intact, orientation, memory, attention span/concentration, language, fund of knowledge normal. Cranial Nerves:�Pupils equal and reactive to light, extraocular movements are�intact, visual garcia are full to confrontation. Facial sensation is normal. There is no facial asymmetry. Vestibulo-ocular reflex is intact. Palate elevates and tongue protrudes in midline. All other cranial related problems are negative except as mentioned before.�Reflexes:�2+ and symmetric with flexor plantar responses. Motor:�5/5 strength with normal tone and bulk. Coordination:�Finger-nose finger and [id number] testing are normal. Rapid alternating movements and fine finger movements are intact. Gait:�not tested. Sensory:�Normal pinprick, vibration, light touch, proprioception.� Vitals VITALS Vital Signs Date Time Temp Pulse Resp B/P (MAP) Pulse Ox O2 Delivery O2 Flow Rate FiO2 03/13/19 08:53 Room Air 03/13/19 07:00 97.8 84 20 126/67 (86) [address] ABD PEL W/ORAL CONTRST ONLY, Stephen's INDICATION: Abdomen pain COMPARISON: August 28, 2018 TECHNIQUE: Axial CT images obtained through the abdomen and pelvis without contrast. One or more of the following individualized dose reduction techniques were utilized for this examination: 1. Automated exposure control; 2. Adjustment of the mA and/or kV according to patient size; 3. Use of iterative reconstruction technique. FINDINGS: Abdominal aorta is not aneurysmal. Fat-containing inguinal hernias. No intrahepatic bile duct dilation. Postcholecystectomy changes. No peripancreatic fluid collection. Spleen unremarkable. Exophytic suspected cystic lesion left kidney. No left-sided hydronephrosis. Urinary bladder is decompressed with catheter. No right-sided hydronephrosis. Colonic diverticulosis. Small fat-containing umbilical hernia. The possible appendix does not appear dilated. There are some scattered mildly prominent lymph nodes within the abdomen. No dilated loops of bowel to suggest obstruction. Degenerative changes spine. IMPRESSION: 1. No evidence of bowel obstruction or hydronephrosis. Assessment/Plan Assessment/Plan Impression: Urinary retention due to local urological problems for which she follows at . I find no evidence of multiple sclerosis on bedside examination. History of migraines Recommendations: I discussed my findings with the patient and did consider MRI, which would basically have to be of the whole neuraxis if we were going to fully evaluate for neurological cause of urinary retention, but given the negative exam, her stable examinations by neurologists at , I have decided to hold off. She is agreeable. I asked the nurse to make sure urology is consulted, although it would have been better to simply send her to where she has all of her treating physicians anyway. I will follow along while she is here. Thank you for letting me help with the patient's care. ABEL VEGAS MD Mar 13, 2019 10:16
[2019-03-13 11:00] VITALS: BP 132/72
--- NOTE | 2019-03-13 11:03 | NUR ---
SW following pt for dc planning. Chart reviewed and discussed with RN. Pt lives at home. Neurology and Urology consulted. No SW needs or dc recommendation noted at this time. Will continue to follow pending dc needs.
--- NOTE | 2019-03-13 11:05 | PDOC2 ---
KIMMY VIGIL CAT SKINNER 03/13/19 1105: UROLOGY CONSULT Date of Consult Date of Consult DATE: 03/13/19 TIME: 10:49 Reason for Consult Reason for Consult: Urinary Retention; kidney cysts Referring Physician Referring Physician: Dr. Lemon Identification/Chief Complaint Chief Complaint Urinary Retention Source Source: Patient History of Present Illness Reason for Visit: This pleasant 43 year old female presented to her PCP and then [facility] ER with complaints of abd pain, bladder fullness, and inability to urinate. A catheter was inserted by the ER and then she went home. She had to present again a day later for pain in her bladder and complaints of catheter not completely draining. They replaced her Alaniz yesterday at [facility] and Dr. Lemon decided to transfer her here for a full workup to rule out/in MS and also for Urology. Today she is having some pain in her left side and over her bladder but it does not feel like her bladder is "full," or like spasms; she is "just hurting constantly." She rates her pain as a 9/10 currently and reports this is an increase from earlier. She had a CT at [facility] where they found a kidney cyst; this is the first time she has heard about this. Past Medical History Cardiovascular: HTN Pulmonary: Other (Sleep apnea) CENTRAL NERVOUS SYSTEM: Migraine GI: Inflam bowel disease ( Crohn's), Irritable bowel disease Psych: Anxiety Rheumatologic: Other Past Surgical History Past Surgical History: Tonsillectomy, Hysterectomy Family History Family History: No Significant Social History ALCOHOL: occassional Drugs: Marijuana Current Medications Current Medications Current Medications Fentanyl Citrate (Fentanyl 2ml Vial) 50 mcg PRN Q3HRS PRN IV PAIN Last administered on 03/13/19at 08:28; Start 03/13/19 at 08:30 Pantoprazole Sodium (Protonix) 40 mg DAILYAC PO Last administered on 03/13/19at 08:27; Start 03/13/19 at 08:30 Sertraline HCl (Zoloft) 50 mg QHS PO ; Start 03/13/19 at 21:00 Topiramate (Topamax) 50 mg BID PO Last administered on 03/13/19at 08:54; Start 03/13/19 at 09:00 Allergies Allergies: Coded Allergies: No Known Drug Allergies (Unverified , 09/18/15) ROS Review Of Systems: CONSTITUTIONAL: No fever or chills EYES: No recent changes SKIN: No rash or itching CARDIOVASCULAR: No chest pain, syncope, palpitations, or edema RESPIRATORY: No SOB or cough GASTROINTESTINAL: + abdominal pain, + left flank pain NEUROLOGICAL: No headaches or weakness ENDOCRINE: No cold or heat intolerance GENITOURINARY: No urgency or frequency of urination MUSCULOSKELETAL: No back pain or joint pain LYMPHATICS: No enlarged lymph nodes PSYCHIATRIC: No anxiety or depression Physical Exam Physical Exam: General: Pleasant, no acute distress, well groomed Eyes: conjunctiva anicteric, eyes full range of motion ENT: moist oral mucosa, normal dentition Neck: Trachea midline, no masses Respiratory: unlabored breathing, not using accessory muscles, Abdomen: nontender, nondistended, no hepatosplenomegaly, no masses Pelvic: Alaniz catheter in place draining clear yellow urine. Skin: no rashes or skin lesions on visualized skin Psych: normal mood, affect. Alert and oriented x 3. Vitals VITALS Vital Signs Date Time Temp Pulse Resp B/P (MAP) Pulse Ox O2 Delivery O2 Flow Rate FiO2 03/13/19 08:53 Room Air 03/13/19 07:00 97.8 84 20 126/67 (86) 98 97.8 Assessment/Plan Assessment/Plan Keep Alaniz catheter in place to allow for bladder decompression/rest. Records from Urology have already been requested. Machine I Coremaker at [place] (03/12)= 0.9 and BUN=16 UA from [place] shows + Mod Blood, few bacteria, negative leukocytes, negative nitrites. Pt afebrile currently. We will get a Renal US to re-evaluate kidney cyst/left flank and bladder pain since she is having an increase in pain. Dr. Aguirre to round on patient later today or tomorrow. TAYLER AGUIRRE MD 03/14/19 0849: UROLOGY CONSULT Assessment/Plan Assessment/Plan pt seen and plan to leave alaniz in place until neurologic eval complete is appropriate. Renal sono results pending. KIMMY VIGIL APRN Mar 13, 2019 11:05 TAYLER AGUIRRE MD Mar 14, 2019 08:49
--- NOTE | 2019-03-13 12:25 | HP ---
ADMIT DATE: 03/13/2019 HISTORY OF PRESENT ILLNESS: The patient is a 43-year-old female patient, who was seen at [facility]. According to her, she has had urinary retention for which she went to [facility] on Tuesday and had had straight catheterization, drained her bladder and went home and continued to have abdominal pain. She feels that she has not been completely emptying her urinary bladder. She was seen yesterday at this [facility] Emergency Room where an indwelling Gómez catheter was placed; however, she continued to have burning sensation and leakage around her catheter and therefore, she came to the Emergency Room of [facility] where her catheter was replaced. According to the patient, she has had 2 surgeries for her incontinence before and then did well and she started retaining urine last Tuesday. She also complained of leg weakness and has had also diarrhea and she has about 5 episodes of loose bowel movements since last night. She has been on a lot of antibiotic courses according to her. So, the patient is a 43-year-old female middle-aged patient who presented with above history and complaints of urinary retention. She has chronic intermittent urinary retention, has had several antibiotic courses over the last several months for UTI. She reported increased leg weakness and she also relates that she has recent heat intolerance, exacerbation in her feelings of weakness and malaise. 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 She did have 2 previous bladder surgeries for incontinence. No history of trauma. She apparently had had a CT scan of the abdomen with IV contrast at [facility] for abdominal pain with no finding of surgical pathology. She was investigated in the Emergency Room and basically her lab works are all seemed to be unremarkable. However, given the weakness and retention of urine, the patient was transferred to the [facility] to consult urologist and neurologist. PAST MEDICAL HISTORY: Significant for morbid obesity, obstructive sleep apnea for which she uses CPAP. She has also migraine headache, bronchial asthma, gastroesophageal reflux disease and anxiety. PAST SURGICAL HISTORY: Significant for total abdominal hysterectomy, cholecystectomy, 2 surgeries for urinary retention and tonsillectomy. ALLERGIES: She has no known drug allergies. FAMILY HISTORY: She has 1 older brother, 1 younger brother, both healthy. Father is alive at age of 69 and has no medical problems. Her mother is still alive at age of 69 and has type 2 diabetes. SOCIAL HISTORY: She is , has 1 biological son and 4 stepsons. She does not smoke, drink alcohol or use any recreational drugs. 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 MEDICATIONS: She is currently on following medications: She is on dicyclomine 20 mg 4 times a day, tizanidine 4 mg daily, propranolol 60 mg extended release, Inderal LA once a day. She is on butalbital, aspirin and caffeine for Fiorinal 1 tablet 4 times a day, topiramate 50 mg twice a day, sertraline for Zoloft 50 mg once a day/sertraline 50 mg daily, Compazine 5 mg 3 times a day, Protonix 40 mg once a day and melatonin 5 mg at bedtime. REVIEW OF SYSTEMS: As per history of present illness. PHYSICAL EXAMINATION GENERAL: When I examined her, she looked somewhat pale; no jaundice, cyanosis or thyromegaly. No jugular venous distention. No lower limb edema. VITAL SIGNS: Her heart rate is 84, blood pressure is 120/75, temperature was 98, respiratory rate was 17 and oxygen saturation was 98%. HEAD, EYES, EARS, NOSE AND THROAT: Normocephalic, atraumatic. NECK: Supple. HEART: Showed normal first and second heart sounds. No gallop, rub or murmur. CHEST: Clear to auscultation. No crepitation or rhonchi. ABDOMEN: Distended, soft, nontender. No guarding or rigidity. No organomegaly. All hernial orifices intact. Bowel sounds normal. NEUROLOGIC: She is awake, alert, responding appropriately. All cranial nerves intact. She moves extremities without difficulty. LABORATORY DATA: Showed a white cell count of 10,700, hemoglobin 11, hematocrit 36, MCV 79 and platelet count 315,000. Her serum sodium was 138, potassium 4.5, chloride 105, bicarbonate 24, anion gap of 9, BUN 16, creatinine 0.9, estimated GFR was 68 mL per minute. Her glucose was 106, calcium was 9.5, magnesium 2.1. Total bilirubin, AST, ALT, alkaline phosphatase were normal. Total protein was 7, albumin was 3.4, lipase was 95. Her prothrombin time was 9.9. INR of 1, aPTT was 29 and D-dimer was 0.69. Her urinalysis showed the urine was yellow, clear with a pH of 6.5, specific gravity of 1.015, small amount of protein. The urine was negative for glucose, ketone, blood, nitrite and leukocyte esterase. There were only 6-10 rbc's, rare wbc's, and very few bacteria. Her toxic screen was essentially negative. She apparently has had CT scan of the abdomen and pelvis, which showed that the abdominal aorta is not aneurysmal. She has fat-containing inguinal hernias. No intrahepatic duct dilatation or post-cholecystectomy changes. No peripancreatic fluid collections. Spleen is unremarkable. Exophytic cystic duct and cystic lesion. Left-sided hydronephrosis. Urinary bladder is decompressed with catheter. No right-sided hydronephrosis. Colonic diverticulosis, small fat-containing umbilical hernia, the possible appendix is not appearing dilated. There are some scattered mildly prominent lymph nodes within the abdomen. No dilated loops of bowel to suggest obstruction. Degenerative changes of spine. ASSESSMENT AND PLAN: The patient was basically admitted to [facility] to arrange for an MRI of the brain for possible multiple sclerosis and consult the neurologist and urologist. I will get medical records from and continue with the indwelling Gómez catheter. We will continue all her medication and decide on further management accordingly. MIGUELINA ROSSI MD DR: DIVYA/shaheed JOB#: [id number] / [id number]
[2019-03-13 15:00] VITALS: BP 137/73
--- NOTE | 2019-03-13 16:23 | RAD ---
EXAM: Renal sonogram. HISTORY: Renal cyst on CT. TECHNIQUE: Sonographic imaging of the kidneys and bladder was performed. COMPARISON: CT dated 03/12/2019. FINDINGS: The right kidney measures 10.4 cm [id number]. The left kidney measures 11.4 cm [id number]. No solid or cystic renal lesion is seen. The bladder is decompressed due to a Gómez catheter. The aorta is normal in caliber. The inferior vena cava is obscured due to bowel gas. IMPRESSION:. Sonographically unremarkable kidneys. There is no sonographic correlate for a small partially exophytic lesion within the left kidney demonstrated on the recent CT. This may be obscured due to small size and imaging technique. Electronically signed by: Carly Rothman MD (03/13/2019 4:19 PM) [email or web address]
[2019-03-13] MEDS: VANCOMYCIN 125 MG/2.5 ML ORAL SOLUTION. PO SCH ×2 (17:04→20:25)
[2019-03-13 19:00] VITALS: BP 133/71
[2019-03-13] MEDS: LACTOBACILLUS RHAMNOSUS GG 1 CAPSULE. PO SCH (20:25)
[2019-03-13] MEDS: SERTRALINE 50 MG TABLET. PO SCH (20:25)
[2019-03-13 23:00] VITALS: BP 133/71
[2019-03-14] MEDS: fentaNYL PF VIAL 100 MCG/2 ML VIAL IV PRN ×7 (00:24→21:05)
[2019-03-14 03:00] VITALS: BP 122/69
[2019-03-14 07:00] VITALS: BP 125/70
[2019-03-14] MEDS: PANTOPRAZOLE 40 MG TABLET.DR. PO SCH (07:20)
[2019-03-14] MEDS: TOPIRAMATE 25 MG TABLET. PO SCH ×2 (08:39→21:04)
[2019-03-14] MEDS: LACTOBACILLUS RHAMNOSUS GG 1 CAPSULE. PO SCH ×2 (08:39→21:04)
[2019-03-14] MEDS: VANCOMYCIN 125 MG/2.5 ML ORAL SOLUTION. PO SCH ×4 (08:40→21:04)
[2019-03-14 11:00] VITALS: BP 137/75
--- NOTE | 2019-03-14 12:05 | PDOC ---
PROGRESS NOTES Assessment Problems Medical Problems: (1) Migraine headache Status: Chronic Urinary retention due to local urological problems for which she follows at . I find no evidence of multiple sclerosis on bedside examination. History of migraines Plan Hold off on MRI I will follow along while she is here. Subjective Feels better Objective Vital Signs Date Time Temp Pulse Resp B/P (MAP) Pulse Ox O2 Delivery O2 Flow Rate FiO2 03/14/19 08:39 Room Air 03/14/19 07:20 16 97 03/14/19 07:00 98.0 71 125/70 (88) 98.0 Intake and Output 03/14/19 06:59 Intake Total 150 ml Output Total 4850 ml Balance -4700 ml Intake Oral 150 ml Output Urine Total 4850 ml PHYSICAL EXAM Alert. Oriented to time, place and person. PERRL. EOMI. CN: no focal findings. Muscle tone: normal. Muscle strength: 5/5 DTR: 2+ Plantar reflex: flexor Gait: not examined in bed. Sensory exam: no abnormal findings. No cerebellar signs elicited. Review of Relevant I have reviewed the following items jesus (where applicable) has been applied. Medications Current Medications Fentanyl Citrate (Fentanyl 2ml Vial) 50 mcg PRN Q3HRS PRN IV PAIN Last administered on 03/14/19 07:20; Start 03/13/19 at 08:30 Pantoprazole Sodium (Protonix) 40 mg DAILYAC PO Last administered on 03/14/19at 07:20; Start 03/13/19 at 08:30 Topiramate (Topamax) 50 mg BID PO Last administered on 03/14/19 08:41; Start 03/13/19 at 09:00 Sertraline HCl (Zoloft) 50 mg QHS PO Last administered on 03/13/19at 20:25; Sta rt 03/13/19 at 21:00 Vancomycin HCl (Vancomycin Oral Solution) 125 mg [id number] PO Last administered on 03/14/19 08:41; Start 03/13/19 at 17:00; Stop 03/23/19 at 13:01 Lactobacillus Rhamnosus (Culturelle) 1 cap BID PO Last administered on 03/14/19 08:41; Start 03/13/19 at 21:00; Stop 03/23/19 at 09:01 Active Scripts Active Erythromycin (Erythromycin Base) 250 Mg Capsule.dr 250 Mg PO BID 14 Days Reported Sertraline Hcl 50 Mg Tablet 50 Mg PO DAILY Protonix (Pantoprazole Sodium) 20 Mg Tablet.dr 40 Mg PO DAILYAC Topiramate 50 Mg Tablet 50 Mg PO BID Primidone 50 Mg Tablet 50 Mg PO DAILYWSUP Vitals/I & O Vital Sign - Last 24 Hours 03/13/19 03/13/19 03/13/19 03/13/19 13:41 13:58 14:54 15:00 Temp 98.0 98.0 Pulse 94 Resp 18 B/P (MAP) 137/73 (94) Pulse Ox 94 95 O2 Delivery Room Air Room Air Room Air Room Air 03/13/19 03/13/19 03/13/19 03/13/19 17:05 18:12 19:00 20:00 Temp 98.3 98.3 Pulse 92 Resp 19 B/P (MAP) 133/71 (91) Pulse Ox 91 O2 Delivery Room Air Room Air Room Air Room Air 03/13/19 03/13/19 03/14/19 03/14/19 20:25 23:00 00:24 00:46 Temp 98.3 98.3 Pulse 87 Resp 16 18 16 B/P (MAP) 133/71 (91) Pulse Ox 95 94 94 94 O2 Delivery Room Air Room Air Room Air Room Air 03/14/19 03/14/19 03/14/19 03/14/19 03:00 03:57 05:00 05:06 Temp 97.7 97.7 Pulse 80 Resp 18 16 16 B/P (MAP) 122/69 (86) Pulse Ox 97 97 97 97 O2 Delivery Room Air Room Air Room Air Room Air 03/14/19 03/14/19 03/14/19 03/14/19 07:00 07:20 08:00 08:39 Temp 98.0 98.0 Pulse 71 Resp 18 16 B/P (MAP) 125/70 (88) Pulse Ox 97 97 O2 Delivery Room Air Room Air Room Air Room Air Intake and Output 03/13/19 03/13/19 03/14/19 14:59 22:59 06:59 Intake Total 150 ml Output Total 1850 ml 2200 ml 800 ml Balance -1850 ml -2200 ml -650 ml ABEL VEGAS MD Mar 14, 2019 12:05
--- NOTE | 2019-03-14 12:16 | PDOC ---
PROGRESS NOTE SUBJECTIVE: ROS: ROS: RESPIRATORY: Shortness of breath denies. Cough denies. UROLOGY: Denies blood in urine. Denies difficulty urinating HPI: Duration: [] Quality: [] Severity: [] Site/Location: [] Problems: Problems Medical Problems: (1) Migraine headache Status: Chronic OBJECTIVE: Vital Signs: Vital Signs Date Time Temp Pulse Resp B/P (MAP) Pulse Ox O2 Delivery O2 Flow Rate FiO2 03/14/19 12:11 Room Air 03/14/19 08:39 Room Air 03/14/19 08:00 Room Air 03/14/19 07:20 16 97 Room Air 03/14/19 07:00 98.0 71 18 125/70 (88) 97 Room Air 98.0 03/14/19 05:06 97 Room Air 03/14/19 05:00 16 97 Room Air 03/14/19 03:57 16 97 Room Air 03/14/19 03:00 97.7 80 18 122/69 (86) 97 Room Air 97.7 03/14/19 00:46 94 Room Air 03/14/19 00:24 16 94 Room Air 03/13/19 23:00 98.3 87 18 133/71 (91) 94 Room Air 98.3 03/13/19 20:25 16 95 Room Air 03/13/19 20:00 Room Air 03/13/19 19:00 98.3 92 19 133/71 (91) 91 Room Air 98.3 03/13/19 18:12 Room Air 03/13/19 17:05 Room Air 03/13/19 15:00 98.0 94 18 137/73 (94) 95 Room Air 98.0 03/13/19 14:54 94 Room Air 03/13/19 13:58 Room Air 03/13/19 13:41 Room Air I & O Intake and Output 03/14/19 06:59 Intake Total 150 ml Output Total 4850 ml Balance -4700 ml Intake Oral 150 ml Output Urine Total 4850 ml PHYSICAL EXAM: Physical Exam: General: Pleasant, no acute distress, well groomed Eyes: conjunctiva anicteric, eyes full range of motion ENT: moist oral mucosa, normal dentition Neck: Trachea midline, no masses Respiratory: unlabored breathing, not using accessory muscles, no crackles or wheezes Cardiovascular: Regular rate and rhythm, no peripheral edema Abdomen: nontender, nondistended, no hepatosplenomegaly, no masses Skin: no rashes or skin lesions on visualized skin Psych: normal mood, affect. Alert and oriented x 3. MEDICATIONS: Current Medications Medications (Trade) Dose Ordered Sig/Rimma Start Time Stop Time Status Last Admin Dose Admin Fentanyl Citrate (Fentanyl 2ml Vial) 50 mcg PRN Q3HRS PRN 03/13/19 08:30 03/14/19 12:11 50 MCG Lactobacillus Rhamnosus (Culturelle) 1 cap BID 03/13/19 21:00 03/23/19 09:01 03/14/19 08:41 1 CAP Pantoprazole Sodium (Protonix) 40 mg DAILYAC 03/13/19 08:30 03/14/19 07:20 40 MG Sertraline HCl (Zoloft) 50 mg QHS 03/13/19 21:00 03/13/19 20:25 50 MG Topiramate (Topamax) 50 mg BID 03/13/19 09:00 03/14/19 08:41 50 MG Vancomycin HCl (Vancomycin Oral Solution) 125 mg [id number] 03/13/19 17:00 03/23/19 13:01 03/14/19 12:11 125 MG ASSESSMENT & PLAN Sono wnl. Urine clear. informed her that we will leave alaniz in place for time being. Problem List: Problems Medical Problems: (1) Migraine headache Status: Chronic TAYLER AGUIRRE MD Mar 14, 2019 12:16
[2019-03-14 12:30] LABS: CALCIUM 9.1 mg/dL (8.5-10.1); CREATININE 0.8 mg/dL (0.6-1.0); GFR 77.6; POTASSIUM 4.3 mmol/L (3.5-5.1)
[2019-03-14 15:00] VITALS: BP 117/80
[2019-03-14 19:00] VITALS: BP 114/75
[2019-03-14] MEDS: SERTRALINE 50 MG TABLET. PO SCH (21:04)
[2019-03-14 23:59] VITALS: BP 127/67
[2019-03-15] MEDS: fentaNYL PF VIAL 100 MCG/2 ML VIAL IV PRN ×7 (00:12→20:07)
--- NOTE | 2019-03-15 00:32 | PN ---
DATE: 03/14/2019 SUBJECTIVE: The patient is resting flat, comfortably in bed, no apparent distress, sleepy, but arousable. On questioning her, she continued to have recurrent bouts of diarrhea. She has so far 5 episodes. She did not sleep well last night because of abdominal pain and cramping, but denied any nausea or vomiting. She was seen in consultation by Dr. Brooks who does not believe that we need to do any further investigation given that she has been investigated thoroughly by the Neurology team at [facility] and the Urology team ordered abdominal ultrasound, which showed that there is no sonographic correlate for a small partially exophytic lesion within the left kidney demonstrated in the recent CT, this may be excluded due to small size and imaging technique. PHYSICAL EXAMINATION: GENERAL: When I examined her today, she looked well and was clearly in no apparent respiratory distress. No pallor, jaundice, cyanosis or thyromegaly. No jugular venous distension. No limb edema. VITAL SIGNS: Her heart rate was 71, blood pressure was 125/70, temperature was 98, respiratory rate was 18 and oxygen saturation was 97%. HEAD, EYES, EARS, NOSE AND THROAT: Normocephalic, atraumatic. NECK: Supple. HEART: Showed normal first and second heart sounds. No gallop, rub or murmur. CHEST: Clear to auscultation. No crepitation or rhonchi. ABDOMEN: Distended, soft, nontender. No guarding or rigidity. No organomegaly. All hernial orifice intact. NEUROLOGIC: She is awake, alert, responding appropriately. All cranial nerves intact. She moves extremities without difficulty. She ambulates without assistance or assistive devices. She has an indwelling Gómez catheter. The urine seems to be clear. ASSESSMENT: 1. Urinary retention requiring indwelling Gómez catheter. 2. Clostridium difficile colitis for which she is now on oral vancomycin. Other medical problems include morbid obesity, obstructive sleep apnea for which she is on CPAP, migraine headache for which she is on topiramate, bronchial asthma, gastroesophageal reflux disease, and anxiety. PLAN: My plan is to continue with all her current medications including lactobacillus rhamnosus 1 capsule twice a day as well as vancomycin 125 mg 4 times a day for C. diff colitis. Continue with her sertraline, topiramate, Protonix, and fentanyl citrate. We will follow her lab work to make sure if she is not dehydrated, to make sure that her electrolytes are within normal range. I would also consult PT, OT to evaluate and treat. MIGUELINA ROSSI MD DR: DIVYA/shaheed JOB#: [id number] / [id number]
[2019-03-15 03:00] VITALS: BP 124/70
[2019-03-15 06:10] LABS: HEMATOCRIT 37.8 % (36.0-47.0); HEMOGLOBIN 12.1 g/dL (12.0-15.5); RED BLOOD COUNT 4.79 x10^6/uL (3.50-5.40); RED CELL DISTRIBUTION WIDTH 17.4 % (11.5-14.5); WHITE BLOOD COUNT 12.9 x10^3/uL (4.0-11.0)
[2019-03-15 06:32] LABS: ALBUMIN 3.3 g/dL (3.4-5.0); ALBUMIN/GLOBULIN RATIO 0.8 (1.0-1.7); CALCIUM 8.9 mg/dL (8.5-10.1); CREATININE 0.8 mg/dL (0.6-1.0); GFR 77.6; TOTAL BILIRUBIN 0.2 mg/dL (0.2-1.0); TOTAL PROTEIN 7.6 g/dL (6.4-8.2)
[2019-03-15 07:00] VITALS: BP 106/57
[2019-03-15] MEDS: PANTOPRAZOLE 40 MG TABLET.DR. PO SCH (07:42)
[2019-03-15] MEDS: VANCOMYCIN 125 MG/2.5 ML ORAL SOLUTION. PO SCH ×4 (08:49→20:06)
[2019-03-15] MEDS: LACTOBACILLUS RHAMNOSUS GG 1 CAPSULE. PO SCH ×2 (08:49→20:06)
[2019-03-15] MEDS: TOPIRAMATE 25 MG TABLET. PO SCH ×2 (08:49→20:06)
--- NOTE | 2019-03-15 09:10 | PDOC ---
SUBJECTIVE Subjective Pt resting comfortably this am. No pain but she is feeling "weak" overall. Being treated for C-Diff. OBJECTIVE Objective Physical Exam: General appearance: Alert and Oriented Head: Normocephalic, without obvious abnormality Eyes: conjunctivae/corneas clear. PERRL, EOM's intact. Fundi benign Back: negative, no CVA pain on testing Lungs: Regular respirations non labored Abdomen: soft, non-tender. No masses, no organomegaly Pelvic: + Gómez catheter in place draining clear yellow urine. Device in good working order. Psych: Appropriate and cooperative with staff Vital Signs Vital Signs Date Time Temp Pulse Resp B/P (MAP) Pulse Ox O2 Delivery O2 Flow Rate FiO2 03/15/19 07:46 18 Room Air 03/15/19 07:00 97.8 67 18 106/57 (73) 95 Room Air 97.8 03/15/19 06:18 Room Air 03/15/19 04:16 Room Air 03/15/19 03:28 Room Air 03/15/19 03:00 98.0 70 18 124/70 (88) 97 Room Air 98.0 03/15/19 01:16 Room Air 03/15/19 00:12 Room Air 03/14/19 23:59 98.7 75 18 127/67 (87) 98 Room Air 98.7 03/14/19 22:09 Room Air 03/14/19 21:05 Room Air 03/14/19 20:00 Room Air 03/14/19 19:59 Room Air 03/14/19 19:00 97.8 68 18 114/75 (88) 97 Room Air 97.8 03/14/19 18:13 Room Air 03/14/19 17:09 Room Air 03/14/19 15:11 Room Air 03/14/19 15:00 98.3 73 18 117/80 (92) 96 Room Air 98.3 03/14/19 12:50 Room Air 03/14/19 12:11 Room Air 03/14/19 11:00 98.1 65 18 137/75 (95) 98 Room Air 98.1 I & O Intake and Output 03/15/19 06:59 Intake Total 100 ml Output Total 2800 ml Balance -2700 ml Intake Oral 100 ml Output Urine Total 2800 ml PHYSICAL EXAM Physical Exam Physical Exam: General appearance: Alert and Oriented Head: Normocephalic, without obvious abnormality Eyes: conjunctivae/corneas clear. PERRL, EOM's intact. Fundi benign Back: negative, no CVA pain on testing Lungs: Regular respirations non labored Abdomen: soft, non-tender. No masses, no organomegaly Pelvic: + Gómez catheter in place draining clear yellow urine. Device in good working order. Psych: Appropriate and cooperative with staff ASSESSMENT/PLAN Assessment/Plan Patient agreeable to keeping catheter in place until she is feeling stronger Working with PT today, encouraged movement. Recommend she follow up with Dr. Holcomb at . If this does not work out for her then she can call us for an appointment, just as long as she sees Urology within 30 days of discharge. Possible voiding trial tomorrow COMMENT Lab Laboratory Tests Test 03/14/19 12:10 03/15/19 05:05 Sodium Level 141 mmol/L (136-145) 141 mmol/L (136-145) Potassium Level 4.3 mmol/L (3.5-5.1) 4.0 mmol/L (3.5-5.1) Chloride Level 108 mmol/L (98-107) 104 mmol/L (98-107) Carbon Dioxide Level 24 mmol/L (21-32) 26 mmol/L (21-32) Anion Gap 9 (6-14) 11 (6-14) Blood Urea Nitrogen 11 mg/dL (7-20) 15 mg/dL (7-20) Creatinine 0.8 mg/dL (0.6-1.0) 0.8 mg/dL (0.6-1.0) Estimated GFR (Cockcroft-Gault) 77.6 77.6 Glucose Level 119 mg/dL (70-99) 90 mg/dL (70-99) Calcium Level 9.1 mg/dL (8.5-10.1) 8.9 mg/dL (8.5-10.1) White Blood Count 12.9 x10^3/uL (4.0-11.0) Red Blood Count 4.79 x10^6/uL (3.50-5.40) Hemoglobin 12.1 g/dL (12.0-15.5) Hematocrit 37.8 % (36.0-47.0) Mean Corpuscular Volume 79 fL (79-100) Mean Corpuscular Hemoglobin 25 pg (25-35) Mean Corpuscular Hemoglobin Concent 32 g/dL (31-37) Red Cell Distribution Width 17.4 % (11.5-14.5) Platelet Count 351 x10^3/uL (140-400) BUN/Creatinine Ratio 19 (6-20) Total Bilirubin 0.2 mg/dL (0.2-1.0) Aspartate Amino Transf (AST/SGOT) 24 U/L (15-37) Alanine Aminotransferase (ALT/SGPT) 35 U/L (14-59) Alkaline Phosphatase 113 U/L (46-116) Total Protein 7.6 g/dL (6.4-8.2) Albumin 3.3 g/dL (3.4-5.0) Albumin/Globulin Ratio 0.8 (1.0-1.7) KIMMY VIGIL APRN Mar 15, 2019 09:10
--- NOTE | 2019-03-15 09:32 | NUR ---
IP: Pt admitted from [facility] ED where pt was diagnosed with + C.diff on 03/13/19 requiring pt to be in contact plus precautions.
[2019-03-15 11:00] VITALS: BP 124/74
--- NOTE | 2019-03-15 12:11 | PDOC ---
PROGRESS NOTES Assessment Problems Medical Problems: (1) Clostridium difficile colitis Status: Acute (2) Migraine headache Status: Chronic Urinary retention due to local urological problems for which she follows at . I find no evidence of multiple sclerosis on bedside examination. History of migraines C diff. positive Plan No additional neurological workup plan, she can always follow with her neurologist at Subjective Still has some bladder pain Objective Vital Signs Date Time Temp Pulse Resp B/P (MAP) Pulse Ox O2 Delivery O2 Flow Rate FiO2 03/15/19 11:24 18 Room Air 03/15/19 11:00 98.0 77 124/74 (91) 97 98.0 Intake and Output 03/15/19 07:00 Intake Total 100 ml Output Total 2800 ml Balance -2700 ml Intake Oral 100 ml Output Urine Total 2800 ml PHYSICAL EXAM Alert. Oriented to time, place and person. PERRL. EOMI. CN: no focal findings. Muscle tone: normal. Muscle strength: 5/5 DTR: 2+ Plantar reflex: flexor Gait: not examined in bed. Sensory exam: no abnormal findings. No cerebellar signs elicited. Review of Relevant I have reviewed the following items jesus (where applicable) has been applied. Labs Laboratory Tests Test 03/14/19 12:10 03/15/19 05:05 Sodium Level 141 mmol/L (136-145) 141 mmol/L (136-145) Potassium Level 4.3 mmol/L (3.5-5.1) 4.0 mmol/L (3.5-5.1) Chloride Level 108 mmol/L (98-107) 104 mmol/L (98-107) Carbon Dioxide Level 24 mmol/L (21-32) 26 mmol/L (21-32) Anion Gap 9 (6-14) 11 (6-14) Blood Urea Nitrogen 11 mg/dL (7-20) 15 mg/dL (7-20) Creatinine 0.8 mg/dL (0.6-1.0) 0.8 mg/dL (0.6-1.0) Estimated GFR (Cockcroft-Gault) 77.6 77.6 Glucose Level 119 mg/dL (70-99) 90 mg/dL (70-99) Calcium Level 9.1 mg/dL (8.5-10.1) 8.9 mg/dL (8.5-10.1) White Blood Count 12.9 x10^3/uL (4.0-11.0) Red Blood Count 4.79 x10^6/uL (3.50-5.40) Hemoglobin 12.1 g/dL (12.0-15.5) Hematocrit 37.8 % (36.0-47.0) Mean Corpuscular Volume 79 fL (79-100) Mean Corpuscular Hemoglobin 25 pg (25-35) Mean Corpuscular Hemoglobin Concent 32 g/dL (31-37) Red Cell Distribution Width 17.4 % (11.5-14.5) Platelet Count 351 x10^3/uL (140-400) BUN/Creatinine Ratio 19 (6-20) Total Bilirubin 0.2 mg/dL (0.2-1.0) Aspartate Amino Transf (AST/SGOT) 24 U/L (15-37) Alanine Aminotransferase (ALT/SGPT) 35 U/L (14-59) Alkaline Phosphatase 113 U/L (46-116) Total Protein 7.6 g/dL (6.4-8.2) Albumin 3.3 g/dL (3.4-5.0) Albumin/Globulin Ratio 0.8 (1.0-1.7) Laboratory Tests Test 03/15/19 05:05 White Blood Count 12.9 x10^3/uL (4.0-11.0) Red Blood Count 4.79 x10^6/uL (3.50-5.40) Hemoglobin 12.1 g/dL (12.0-15.5) Hematocrit 37.8 % (36.0-47.0) Mean Corpuscular Volume 79 fL (79-100) Mean Corpuscular Hemoglobin 25 pg (25-35) Mean Corpuscular Hemoglobin Concent 32 g/dL (31-37) Red Cell Distribution Width 17.4 % (11.5-14.5) Platelet Count 351 x10^3/uL (140-400) Sodium Level 141 mmol/L (136-145) Potassium Level 4.0 mmol/L (3.5-5.1) Chloride Level 104 mmol/L (98-107) Carbon Dioxide Level 26 mmol/L (21-32) Anion Gap 11 (6-14) Blood Urea Nitrogen 15 mg/dL (7-20) Creatinine 0.8 mg/dL (0.6-1.0) Estimated GFR (Cockcroft-Gault) 77.6 BUN/Creatinine Ratio 19 (6-20) Glucose Level 90 mg/dL (70-99) Calcium Level 8.9 mg/dL (8.5-10.1) Total Bilirubin 0.2 mg/dL (0.2-1.0) Aspartate Amino Transf (AST/SGOT) 24 U/L (15-37) Alanine Aminotransferase (ALT/SGPT) 35 U/L (14-59) Alkaline Phosphatase 113 U/L (46-116) Total Protein 7.6 g/dL (6.4-8.2) Albumin 3.3 g/dL (3.4-5.0) Albumin/Globulin Ratio 0.8 (1.0-1.7) Medications Current Medications Fentanyl Citrate (Fentanyl 2ml Vial) 50 mcg PRN Q3HRS PRN IV PAIN Last administered on 03/15/19 10:02; Start 03/13/19 at 08:30 Pantoprazole Sodium (Protonix) 40 mg DAILYAC PO Last administered on 03/15/19 07:43; Start 03/13/19 at 08:30 Topiramate (Topamax) 50 mg BID PO Last administered on 03/15/19 08:49; Start 03/13/19 at 09:00 Sertraline HCl (Zoloft) 50 mg QHS PO Last administered on 03/14/19 21:05; Start 03/13/19 at 21:00 Vancomycin HCl (Vancomycin Oral Solution) 125 mg [id number] PO Last administered on 03/15/19 08:49; Start 03/13/19 at 17:00; Stop 03/23/19 at 13:01 Lactobacillus Rhamnosus (Culturelle) 1 cap BID PO Last administered on 03/15/19 08:49; Start 03/13/19 at 21:00; Stop 03/23/19 at 09:01 Active Scripts Active Erythromycin (Erythromycin Base) 250 Mg Capsule.dr 250 Mg PO BID 14 Days Reported Sertraline Hcl 50 Mg Tablet 50 Mg PO DAILY Protonix (Pantoprazole Sodium) 20 Mg Tablet.dr 40 Mg PO DAILYAC Topiramate 50 Mg Tablet 50 Mg PO BID Primidone 50 Mg Tablet 50 Mg PO DAILYWSUP Vitals/I & O Vital Sign - Last 24 Hours 03/14/19 03/14/19 03/14/19 03/14/19 12:11 12:50 15:00 15:11 Temp 98.3 98.3 Pulse 73 Resp 18 B/P (MAP) 117/80 (92) Pulse Ox 96 O2 Delivery Room Air Room Air Room Air Room Air 03/14/19 03/14/19 03/14/19 03/14/19 17:09 18:13 19:00 19:59 Temp 97.8 97.8 Pulse 68 Resp 18 B/P (MAP) 114/75 (88) Pulse Ox 97 O2 Delivery Room Air Room Air Room Air Room Air 03/14/19 03/14/19 03/14/19 03/14/19 20:00 21:05 22:09 23:59 Temp 98.7 98.7 Pulse 75 Resp 18 B/P (MAP) 127/67 (87) Pulse Ox 98 O2 Delivery Room Air Room Air Room Air Room Air 03/15/19 03/15/19 03/15/19 03/15/19 00:12 01:16 03:00 03:28 Temp 98.0 98.0 Pulse 70 Resp 18 B/P (MAP) 124/70 (88) Pulse Ox 97 O2 Delivery Room Air Room Air Room Air Room Air 03/15/19 03/15/19 03/15/19 03/15/19 04:16 06:18 07:00 07:46 Temp 97.8 97.8 Pulse 67 Resp 18 18 B/P (MAP) 106/57 (73) Pulse Ox 95 O2 Delivery Room Air Room Air Room Air Room Air 03/15/19 03/15/19 03/15/19 03/15/19 08:00 10:02 11:00 11:24 Temp 98.0 98.0 Pulse 77 Resp 20 18 18 B/P (MAP) 124/74 (91) Pulse Ox 97 O2 Delivery Room Air Room Air Room Air Intake and Output 03/14/19 03/14/19 03/15/19 15:00 23:00 07:00 Intake Total 100 ml 0 ml Output Total 1800 ml 1000 ml Balance -1700 ml -1000 ml ABEL VEGAS MD Mar 15, 2019 12:11
[2019-03-15] MEDS: ONDANSETRON PF 4 MG/2 ML VIAL. IV PRN (13:16)
[2019-03-15 15:00] VITALS: BP 124/74
[2019-03-15 19:00] VITALS: BP 135/75
[2019-03-15] MEDS: SERTRALINE 50 MG TABLET. PO SCH (20:06)
[2019-03-15 22:45] VITALS: BP 124/74
--- NOTE | 2019-03-15 22:49 | PN ---
DATE: 03/15/2019 SUBJECTIVE: The patient is resting, slightly propped up in bed, in no apparent distress. She continued to complain of diarrhea and she has at least 7 episodes of loose bowel movements this morning. Her pain is much better. She has had no nausea or vomiting and she generally feels very weak and tired. PHYSICAL EXAMINATION: GENERAL: When I examined her, she looked pale, but no jaundice, cyanosis or thyromegaly. No jugular venous distension. No limb edema. VITAL SIGNS: Her heart rate was 67, blood pressure was 106/57, temperature was 97.8, respiratory rate was 18 and oxygen saturation was 95%. HEAD, EYES, EARS, NOSE AND THROAT: Showed normocephalic, atraumatic. NECK: Supple. HEART: Showed normal first and second heart sounds. No gallop, rub or murmur. CHEST: Clear to auscultation. No crepitation or rhonchi. ABDOMEN: Distended, soft, nontender. No guarding or rigidity. No organomegaly. All hernial orifices intact. Bowel sounds normal. NEUROLOGIC: She was awake, alert, responding appropriately. All cranial nerves intact. She moves extremities without difficulty. She ambulates without assistance or assistive devices. LABORATORY DATA: Her intake is incompletely recorded, output was 2800. As of this morning, her serum sodium was 141, potassium 4, chloride 104, bicarbonate 26, anion gap of 11, BUN 15, creatinine 0.8. Estimated GFR was 77 mL per minute. Her glucose was 90, calcium was 8.9. Total bilirubin, AST, ALT, alkaline phosphatase were normal. Total protein was 7.6, albumin 3.3. Her white cell count was 12,900, hemoglobin 12, hematocrit 38, MCV 79 and platelet count 351,000. ASSESSMENT: 1. Urinary retention requiring indwelling Gómez catheter. 2. Clostridium difficile colitis for which she is now on oral vancomycin. 3. Other medical problems include: A. Morbid obesity and obstructive sleep apnea for which she is on CPAP. B. Migraine headache. She is on Topiramate. C. Bronchial asthma. D. Gastroesophageal reflux disease. E. Anxiety. PLAN: To continue with oral vancomycin. Continue with PT, OT. Continue with DVT prophylaxis. Once diarrhea slows down or subsides and she feels stronger, she can be discharged home to finish treatment as an outpatient. MIGUELINA ROSSI MD DR: Gerry JOB#: [id number] / [id number]
[2019-03-16] MEDS: fentaNYL PF VIAL 100 MCG/2 ML VIAL IV PRN ×7 (00:13→21:28)
[2019-03-16 02:50] VITALS: BP 132/76
[2019-03-16 07:00] VITALS: BP 110/65
[2019-03-16] MEDS: PANTOPRAZOLE 40 MG TABLET.DR. PO SCH (07:24)
[2019-03-16] MEDS: VANCOMYCIN 125 MG/2.5 ML ORAL SOLUTION. PO SCH ×4 (08:13→21:58)
[2019-03-16] MEDS: TOPIRAMATE 25 MG TABLET. PO SCH ×2 (08:13→21:57)
[2019-03-16] MEDS: LACTOBACILLUS RHAMNOSUS GG 1 CAPSULE. PO SCH ×2 (08:13→21:57)
[2019-03-16 08:24] LABS: CALCIUM 8.9 mg/dL (8.5-10.1); CREATININE 0.8 mg/dL (0.6-1.0); GFR 77.6; POTASSIUM 3.9 mmol/L (3.5-5.1)
[2019-03-16] MEDS: ONDANSETRON PF 4 MG/2 ML VIAL. IV PRN ×3 (09:25→23:13)
--- NOTE | 2019-03-16 10:37 | NUR ---
Scan on IV pain medication did not save at 0925, entered manually. Patient having nausea and pain after up to bathroom for a.m. cares. See emar.
[2019-03-16 11:00] VITALS: BP 129/86
--- NOTE | 2019-03-16 11:23 | PDOC ---
SUBJECTIVE Subjective Pt ok with doing a voiding trial this am. She is getting up a lot for diarrhea anyway and would like to try voiding on her own. OBJECTIVE Objective Physical Exam: General appearance: Alert and Oriented Head: Normocephalic, without obvious abnormality Eyes: conjunctivae/corneas clear. PERRL, EOM's intact. Fundi benign Back: no CVA pain on testing Lungs: Regular respirations, non labored breathing Abdomen: soft, non-tender, obese No masses, no organomegaly Pelvic: Alaniz catheter removed by ACCOUNT SERVICE REPRESENTATIVE Kristian with no difficulty. Device was draining clear yellow urine and working well. Vital Signs Vital Signs Date Time Temp Pulse Resp B/P (MAP) Pulse Ox O2 Delivery O2 Flow Rate FiO2 03/16/19 11:00 98.0 77 18 129/86 (100) 94 Room Air 98.0 03/16/19 10:39 18 Room Air 03/16/19 10:37 18 03/16/19 08:00 Room Air 03/16/19 07:00 98.7 79 18 110/65 (80) 93 Room Air 98.7 03/16/19 06:59 16 Room Air 03/16/19 06:19 Room Air 03/16/19 04:11 Room Air 03/16/19 03:31 Room Air 03/16/19 02:50 98.2 78 18 132/76 (94) 97 Room Air 98.2 03/16/19 00:51 Room Air 03/16/19 00:13 Room Air 03/15/19 22:45 98.5 78 18 124/74 (91) 95 Room Air 98.5 03/15/19 20:40 Room Air 03/15/19 20:07 Room Air 03/15/19 20:00 Room Air 03/15/19 19:00 98.7 83 18 135/75 (95) 96 Room Air 98.7 03/15/19 16:54 18 Room Air 03/15/19 15:00 98.2 81 18 124/74 (91) 98 Room Air 98.2 03/15/19 14:42 18 Room Air 03/15/19 13:18 18 03/15/19 11:24 18 Room Air I & O Intake and Output 03/16/19 06:59 Intake Total 740 ml Output Total 2900 ml Balance -2160 ml Intake Oral 740 ml Output Urine Total 2900 ml PHYSICAL EXAM Physical Exam Physical Exam: General appearance: Alert and Oriented Head: Normocephalic, without obvious abnormality Eyes: conjunctivae/corneas clear. PERRL, EOM's intact. Fundi benign Back: no CVA pain on testing Lungs: Regular respirations, non labored breathing Abdomen: soft, non-tender, obese No masses, no organomegaly Pelvic: Alaniz catheter removed by ACCOUNT SERVICE REPRESENTATIVE Kristian with no difficulty. Device was draining clear yellow urine and working well. ASSESSMENT/PLAN Assessment/Plan Alaniz removed by ACCOUNT SERVICE REPRESENTATIVE Kristian at 0945. Please encourage q 1 to 1.5 hour voiding and bladder scan patient between 3 and 4 pm. If PVR greater than 350 please re- insert alaniz catheter. If less than 350 and pt voiding, please leave catheter out and encourage voiding. Recommend she follow up with Dr. Holcomb at . If this does not work out for her then she can call us for an appointment, just as long as she sees Urology within 30 days of discharge. COMMENT Lab Laboratory Tests Test 03/16/19 05:45 Sodium Level 139 mmol/L (136-145) Potassium Level 3.9 mmol/L (3.5-5.1) Chloride Level 103 mmol/L (98-107) Carbon Dioxide Level 24 mmol/L (21-32) Anion Gap 12 (6-14) Blood Urea Nitrogen 15 mg/dL (7-20) Creatinine 0.8 mg/dL (0.6-1.0) Estimated GFR (Cockcroft-Gault) 77.6 Glucose Level 99 mg/dL (70-99) Calcium Level 8.9 mg/dL (8.5-10.1) Thyroid Stimulating Hormone (TSH) 7.954 uIU/mL (0.358-3.74) KIMMY VIGIL APRN Mar 16, 2019 11:23
--- NOTE | 2019-03-16 12:35 | PDOC ---
PROGRESS NOTES Assessment Problems Medical Problems: (1) Clostridium difficile colitis Status: Acute (2) Migraine headache Status: Chronic Urinary retention due to local urological problems for which she follows at . I find no evidence of multiple sclerosis on bedside examination. History of migraines C diff. positive Plan No additional neurological workup plan, she can always follow with her neurologist at [facility] Bladder feels better Objective Vital Signs Date Time Temp Pulse Resp B/P (MAP) Pulse Ox O2 Delivery O2 Flow Rate FiO2 03/16/19 11:00 98.0 77 18 129/86 (100) 94 Room Air 98.0 Intake and Output 03/16/19 06:59 Intake Total 740 ml Output Total 2900 ml Balance -2160 ml Intake Oral 740 ml Output Urine Total 2900 ml PHYSICAL EXAM Alert. Oriented to time, place and person. PERRL. EOMI. CN: no focal findings. Muscle tone: normal. Muscle strength: 5/5 DTR: 2+ Plantar reflex: flexor Gait: not examined in bed. Sensory exam: no abnormal findings. No cerebellar signs elicited. Review of Relevant I have reviewed the following items jesus (where applicable) has been applied. Labs Laboratory Tests Test 03/15/19 05:05 03/16/19 05:45 White Blood Count 12.9 x10^3/uL (4.0-11.0) Red Blood Count 4.79 x10^6/uL (3.50-5.40) Hemoglobin 12.1 g/dL (12.0-15.5) Hematocrit 37.8 % (36.0-47.0) Mean Corpuscular Volume 79 fL (79-100) Mean Corpuscular Hemoglobin 25 pg (25-35) Mean Corpuscular Hemoglobin Concent 32 g/dL (31-37) Red Cell Distribution Width 17.4 % (11.5-14.5) Platelet Count 351 x10^3/uL (140-400) Sodium Level 141 mmol/L (136-145) 139 mmol/L (136-145) Potassium Level 4.0 mmol/L (3.5-5.1) 3.9 mmol/L (3.5-5.1) Chloride Level 104 mmol/L (98-107) 103 mmol/L (98-107) Carbon Dioxide Level 26 mmol/L (21-32) 24 mmol/L (21-32) Anion Gap 11 (6-14) 12 (6-14) Blood Urea Nitrogen 15 mg/dL (7-20) 15 mg/dL (7-20) Creatinine 0.8 mg/dL (0.6-1.0) 0.8 mg/dL (0.6-1.0) Estimated GFR (Cockcroft-Gault) 77.6 77.6 BUN/Creatinine Ratio 19 (6-20) Glucose Level 90 mg/dL (70-99) 99 mg/dL (70-99) Calcium Level 8.9 mg/dL (8.5-10.1) 8.9 mg/dL (8.5-10.1) Total Bilirubin 0.2 mg/dL (0.2-1.0) Aspartate Amino Transf (AST/SGOT) 24 U/L (15-37) Alanine Aminotransferase (ALT/SGPT) 35 U/L (14-59) Alkaline Phosphatase 113 U/L (46-116) Total Protein 7.6 g/dL (6.4-8.2) Albumin 3.3 g/dL (3.4-5.0) Albumin/Globulin Ratio 0.8 (1.0-1.7) Thyroid Stimulating Hormone (TSH) 7.954 uIU/mL (0.358-3.74) Laboratory Tests Test 03/16/19 05:45 Sodium Level 139 mmol/L (136-145) Potassium Level 3.9 mmol/L (3.5-5.1) Chloride Level 103 mmol/L (98-107) Carbon Dioxide Level 24 mmol/L (21-32) Anion Gap 12 (6-14) Blood Urea Nitrogen 15 mg/dL (7-20) Creatinine 0.8 mg/dL (0.6-1.0) Estimated GFR (Cockcroft-Gault) 77.6 Glucose Level 99 mg/dL (70-99) Calcium Level 8.9 mg/dL (8.5-10.1) Thyroid Stimulating Hormone (TSH) 7.954 uIU/mL (0.358-3.74) Medications Current Medications Fentanyl Citrate (Fentanyl 2ml Vial) 50 mcg PRN Q3HRS PRN IV PAIN Last administered on 03/16/19at 10:37; Start 03/13/19 at 08:30 Pantoprazole Sodium (Protonix) 40 mg DAILYAC PO Last administered on 03/16/19 07:24; Start 03/13/19 at 08:30 Topiramate (Topamax) 50 mg BID PO Last administered on 03/16/19 08:14; Start 03/13/19 at 09:00 Sertraline HCl (Zoloft) 50 mg QHS PO Last administered on 03/15/19 20:07; Start 03/13/19 at 21:00 Vancomycin HCl (Vancomycin Oral Solution) 125 mg [id number] PO Last administered on 03/16/19 12:12; Start 03/13/19 at 17:00; Stop 03/23/19 at 13:01 Lactobacillus Rhamnosus (Culturelle) 1 cap BID PO Last administered on 03/16/19 08:14; Start 03/13/19 at 21:00; Stop 03/23/19 at 09:01 Ondansetron HCl (Zofran) 4 mg PRN Q4HRS PRN IV NAUSEA/VOMITING Last administered on 03/16/19 09:28; Start 03/15/19 at 13:15 Active Scripts Active Erythromycin (Erythromycin Base) 250 Mg Capsule.dr 250 Mg PO BID 14 Days Reported Sertraline Hcl 50 Mg Tablet 50 Mg PO DAILY Protonix (Pantoprazole Sodium) 20 Mg Tablet.dr 40 Mg PO DAILYAC Topiramate 50 Mg Tablet 50 Mg PO BID Primidone 50 Mg Tablet 50 Mg PO DAILYWSUP Vitals/I & O Vital Sign - Last 24 Hours 03/15/19 03/15/19 03/15/19 03/15/19 13:18 14:42 15:00 16:54 Temp 98.2 98.2 Pulse 81 Resp 18 18 18 18 B/P (MAP) 124/74 (91) Pulse Ox 98 O2 Delivery Room Air Room Air Room Air 03/15/19 03/15/19 03/15/19 03/15/19 19:00 20:00 20:07 20:40 Temp 98.7 98.7 Pulse 83 Resp 18 B/P (MAP) 135/75 (95) Pulse Ox 96 O2 Delivery Room Air Room Air Room Air Room Air 03/15/19 03/16/19 03/16/19 03/16/19 22:45 00:13 00:51 02:50 Temp 98.5 98.2 98.5 98.2 Pulse 78 78 Resp 18 18 B/P (MAP) 124/74 (91) 132/76 (94) Pulse Ox 95 97 O2 Delivery Room Air Room Air Room Air Room Air 03/16/19 03/16/19 03/16/19 03/16/19 03:31 04:11 06:19 06:59 Resp 16 O2 Delivery Room Air Room Air Room Air Room Air 03/16/19 03/16/19 03/16/19 03/16/19 07:00 08:00 10:37 10:39 Temp 98.7 98.7 Pulse 79 Resp 18 18 18 B/P (MAP) 110/65 (80) Pulse Ox 93 O2 Delivery Room Air Room Air Room Air 03/16/19 11:00 Temp 98.0 98.0 Pulse 77 Resp 18 B/P (MAP) 129/86 (100) Pulse Ox 94 O2 Delivery Room Air Intake and Output 03/15/19 03/15/19 03/16/19 14:59 22:59 06:59 Intake Total 500 ml 240 ml Output Total 2000 ml 900 ml Balance 500 ml -1760 ml -900 ml ABEL VEGAS MD Mar 16, 2019 12:35
[2019-03-16 15:00] VITALS: BP 132/81
--- NOTE | 2019-03-16 15:25 | NUR ---
Patient void, but no specipan to measure urine, PVR less than 26 ml. Will measure UO with next void and repeat PVR. Patient verb. understanding POC.
--- NOTE | 2019-03-16 17:26 | NUR ---
Patient void 250 cc clear yellow urine, PVR less than 24 ml.
[2019-03-16 19:00] VITALS: BP 113/74
[2019-03-16] MEDS: SERTRALINE 50 MG TABLET. PO SCH (21:57)
--- NOTE | 2019-03-16 22:12 | PN ---
DATE: 03/16/2019 SUBJECTIVE: The patient is resting, slightly propped up in bed, no apparent distress. She continued to complain of nausea, has had about 5 bowel movements so far and her Gómez catheter was removed for voiding trial. She is instructed to attempt to void every 1-2 hours. The bladder will be scanned every 4 hours and if she is retaining more than 350, she will have her Gómez catheter placed back. PHYSICAL EXAMINATION: GENERAL: When I examined her, she looked pale. No jaundice, cyanosis or thyromegaly. No jugular venous distension. No lower limb edema. VITAL SIGNS: Her heart rate was 77, blood pressure was 129/86, temperature was 98, respiratory rate 18, and oxygen saturation was 94%. HEAD, EYES, EARS, NOSE AND THROAT: Normocephalic, atraumatic. NECK: Supple. HEART: Showed normal first and second heart sounds. No gallop, rub or murmur. CHEST: Clear to auscultation. No crepitation or rhonchi. ABDOMEN: Distended, soft, nontender. No guarding or rigidity. No organomegaly. All hernial orifice intact. Bowel sounds normal. NEUROLOGIC: She was awake, alert, responding appropriately. Her cranial nerves are intact. She moves extremities without difficulty, she ambulates to the bathroom and back. Her intake over the last 24 hours was incompletely recorded, output was 2800. LABORATORY DATA: Her lab work this morning showed a serum sodium 139, potassium 3.9, chloride 103, bicarbonate 24, anion gap of 12, BUN 15, creatinine 0.8, estimated GFR was 77 mL per minute. Her glucose was 99, calcium was 8.9. Her TSH was 7.954. Her white cell count was 12,900, hemoglobin 12, hematocrit 38, MCV 79 and platelet count 351,000. ASSESSMENT: 1. Urinary retention requiring indwelling Gómez catheter. The patient is now having voiding trial. 2. Clostridium difficile colitis for which she is now on oral vancomycin. 3. Other medical problems include: A. Morbid obesity, obstructive sleep apnea for which she is on CPAP. B. Migraine headache, on topiramate. C. Bronchial asthma. D. Gastroesophageal reflux disease. E. Anxiety. PLAN: Continue with oral vancomycin. Continue with PT, OT. Continue with DVT prophylaxis. Once diarrhea slows down or subsides and the patient feels stronger, she can be discharged home to finish treatment as an outpatient. MIGUELINA ROSSI MD DR: DIVYA/shaheed JOB#: [id number] / [id number]
[2019-03-16 23:00] VITALS: BP 120/74
[2019-03-17] MEDS: fentaNYL PF VIAL 100 MCG/2 ML VIAL IV PRN ×7 (01:00→20:55)
[2019-03-17 03:00] VITALS: BP 126/77
[2019-03-17] MEDS: ONDANSETRON PF 4 MG/2 ML VIAL. IV PRN ×3 (04:11→17:41)
[2019-03-17] MEDS: PANTOPRAZOLE 40 MG TABLET.DR. PO SCH (05:18)
[2019-03-17 05:45] LABS: HEMATOCRIT 38.3 % (36.0-47.0); HEMOGLOBIN 12.3 g/dL (12.0-15.5); RED BLOOD COUNT 4.89 x10^6/uL (3.50-5.40); RED CELL DISTRIBUTION WIDTH 17.2 % (11.5-14.5); WHITE BLOOD COUNT 12.6 x10^3/uL (4.0-11.0)
[2019-03-17 05:47] LABS: CALCIUM 8.8 mg/dL (8.5-10.1); CREATININE 0.9 mg/dL (0.6-1.0); GFR 67.7; POTASSIUM 3.8 mmol/L (3.5-5.1)
[2019-03-17 07:00] VITALS: BP 129/77
[2019-03-17] MEDS: LACTOBACILLUS RHAMNOSUS GG 1 CAPSULE. PO SCH ×2 (07:52→20:55)
[2019-03-17] MEDS: TOPIRAMATE 25 MG TABLET. PO SCH ×2 (07:52→20:55)
[2019-03-17] MEDS: VANCOMYCIN 125 MG/2.5 ML ORAL SOLUTION. PO SCH ×4 (07:52→20:55)
[2019-03-17 11:00] VITALS: BP 122/78
[2019-03-17 15:00] VITALS: BP 135/67
--- NOTE | 2019-03-17 15:32 | PN ---
DATE: 03/17/2019 SUBJECTIVE: The patient is resting, slightly propped up in bed, in no apparent distress, awake, alert, continued to have recurrent bouts of loose bowel movement. Denied any nausea or vomiting. Denied any abdominal pain, has been able to empty her bladder completely. Did not require any catheterization. PHYSICAL EXAMINATION: GENERAL: When I examined her this morning, she looked pale, no jaundice, cyanosis, or thyromegaly. No jugular venous distension. No limb edema. VITAL SIGNS: Her heart rate was 81, blood pressure was 126/77, temperature was 97.9, respiratory rate was 18 and oxygen saturation was 96% on room air. HEAD, EYES, EARS, NOSE AND THROAT: Showed normocephalic, atraumatic. NECK: Supple. HEART: Normal first and second heart sounds with no gallop or murmur. CHEST: Clear to auscultation. No crepitation or rhonchi. ABDOMEN: Distended, soft, nontender. NEUROLOGIC: She is awake, alert, responding appropriately. All cranial nerves intact. She ambulates without assistance or assistive devices. Her intake was 740, output was 2900. LABORATORY DATA: As of this morning, her serum sodium was 138, potassium 3.8, chloride 104, bicarbonate 23, anion gap of 11, BUN 15, creatinine 0.9, estimated GFR was 68 mL per minute. Her glucose 115, calcium was 8.8. Her white cell count was 12,600, hemoglobin 12, hematocrit 38, MCV 78, platelet count 347. IMPRESSION: 1. Urinary retention requiring indwelling Gómez catheter. The patient is having voiding trial, so far she is doing well, not required any catheterization. 2. Clostridium difficile colitis, for which is now on oral vancomycin. 3. She has multiple other medical problems including: A. Morbid obesity, obstructive sleep apnea, for which she is on CPAP. B. Migraine headache. C. Bronchial asthma. D. Gastroesophageal reflux disease and anxiety. PLAN: To continue with oral vancomycin. Continue with PT, OT. Continue DVT prophylaxis. MIGUELINA ROSSI MD DR: DIVYA/shaheed JOB#: [id number] / [id number]
[2019-03-17 19:00] VITALS: BP 120/74
[2019-03-17] MEDS: SERTRALINE 50 MG TABLET. PO SCH (20:55)
[2019-03-17 23:03] VITALS: BP 108/68
[2019-03-18] MEDS: fentaNYL PF VIAL 100 MCG/2 ML VIAL IV PRN ×3 (00:18→08:05)
[2019-03-18 03:03] VITALS: BP 117/69
[2019-03-18 07:00] VITALS: BP 115/54
[2019-03-18] MEDS: PANTOPRAZOLE 40 MG TABLET.DR. PO SCH (08:05)
[2019-03-18] MEDS: LACTOBACILLUS RHAMNOSUS GG 1 CAPSULE. PO SCH (08:05)
[2019-03-18] MEDS: VANCOMYCIN 125 MG/2.5 ML ORAL SOLUTION. PO SCH ×2 (08:05→11:12)
[2019-03-18] MEDS: TOPIRAMATE 25 MG TABLET. PO SCH (08:05)
[2019-03-18] MEDS: ONDANSETRON PF 4 MG/2 ML VIAL. IV PRN (08:05)
[2019-03-18] MEDS ORDERED: HYDROcodone/APAP 5/325MG 1 TAB TABLET PO PRN (08:45)
[2019-03-18 11:00] VITALS: BP 130/77
--- NOTE | 2019-03-18 12:20 | PN ---
DATE: 03/18/2019 SUBJECTIVE: The patient is resting, slightly propped up in bed, in no apparent distress. She has no problem with urinary retention. Continue to have diarrhea. Complaining of nausea, but asking for fentanyl every hour. She is able to walk around. Her vital signs are stable and she has other lab works so far seemed to be stable. In particular, her electrolytes are within acceptable range. My plan is to discontinue fentanyl and put her on narcotic. I consulted PT, OT and hopefully she can be discharged home tomorrow. OBJECTIVE: When I saw her today, her vital signs are stable. Physical exam is unremarkable. Her intake was 140, output was 1050. LABORATORY DATA: As of yesterday, her BUN was 15, creatinine 0.9. Serum sodium, potassium, chloride, bicarbonate are all normal. Her hemoglobin, hematocrit, white cell count and platelets are all in acceptable range. ASSESSMENT: 1. Retention, requiring indwelling Gómez catheter. The patient is now having voiding trial, so far she is doing well, do not require to be recatheterized. 2. Clostridium difficile colitis, for which she is now on oral vancomycin. 3. She has multiple other medical problems including: A. Morbid obesity, obstructive sleep apnea for which she is on CPAP. B. Migraine headache. C. Bronchial asthma. D. Gastroesophageal reflux disease. PLAN: To discontinue IV pain medication. Continue with oral Percocet. Continue with oral vancomycin. Continue PT, OT. Continue DVT prophylaxis. If she remains stable, she will be discharged home tomorrow. MIGUELINA ROSSI MD DR: DIVYA/shaheed JOB#: [id number] / [id number]
--- NOTE | 2019-03-18 14:21 | NUR ---
Discharge Note: INDRA FUNK Discharge instructions and discharge home medications reviewed with Patient and a copy given. All questions have been answered and understanding verbalized. The following instructions and handouts were given: C-Diff Discontinued lines and drains: Peripheral IV intact. Patient discharged to Home or Self Care with Family Member via Ambulated walked off the unit by LEANDRO
[2019-03-19] MEDS ORDERED: VANC125C3 PO (10:54)
--- NOTE | 2019-03-19 12:42 | DS ---
DATE OF DISCHARGE: 03/18/2019 HISTORY OF PRESENT ILLNESS: The patient is a 43-year-old female patient, who was originally seen at [facility] with urinary retention. Apparently, the patient has chronic intermittent urinary retention, has several antibiotic courses over the last month for UTI. She reported increased leg weakness and she also relates that she has recent heat intolerance and exacerbation and feeling of weakness and malaise. 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 She did have 2 previous bladder surgeries for incontinence. No history of trauma. She apparently had a CT scan of the abdomen with IV contrast to [facility] for abdominal pain and no finding of surgical pathology. She was investigated in the Emergency Room. Her lab works are all seemed to be unremarkable; however, given the weakness and retention of urine, she was transferred to [facility] to consult a neurologist as well as urologist. Dr. Schmidt has seen the patient. He does not believe that she has any evidence of multiple sclerosis, and not recommend any further workup as she has been followed at [facility] for chronic migraine headache and she also follows with the urologist there. Her Gómez catheter was removed and she started voiding trial and was able to empty her bladder without difficulty. Unfortunately, while in the hospital, she developed diarrhea and her C. diff came back positive and therefore, she was started on oral vancomycin 125 mg 4 times a day. She did actually very well and she remained stable. Her diarrhea has largely subsided and decision was made to discharge her home to continue with oral vancomycin and to go back to school in a week from today. PHYSICAL EXAMINATION: GENERAL: When I examined her on the day of discharge, she looked well and was clearly in no apparent respiratory distress. No pallor, jaundice, cyanosis or thyromegaly. No jugular venous distention. No limb edema. VITAL SIGNS: Her heart rate was 87, blood pressure was 130/77, temperature was 97.9, respiratory rate was 18 and oxygen saturation was 96%. HEAD, EYES, EARS, NOSE AND THROAT: Showed normocephalic, atraumatic. NECK: Supple. HEART: Showed normal first and second heart sounds with no gallop, rub or murmur. CHEST: Clear to auscultation. No crepitation or rhonchi. ABDOMEN: Distended, soft, nontender. NEUROLOGIC: She is awake, alert, responding appropriately. All cranial nerves intact. She moves extremities without difficulty. She ambulates without assistance or assistive devices. LABORATORY DATA: Showed a serum sodium 138, potassium 3.8, chloride 104, bicarbonate 23, anion gap of 11, BUN 15, creatinine 0.9, estimated GFR was 68 mL per minute. Her glucose 115, calcium was 8.8. Her white cell count was 12,600, hemoglobin 12, hematocrit 38, MCV 78 and platelet count 347,000. Her TSH was slightly elevated. We did order T3, T4, free T4, the results are still pending at the time of this dictation. She did have abdominal ultrasound, which basically showed the unremarkable kidneys. There is no sonographic correlate for a small partially exophytic lesion within the left kidney, demonstrated on the recent CT scan. DISCHARGE MEDICATIONS: The patient was discharged home to continue on erythromycin 250 mg twice a day, Protonix 40 mg once a day, primidone 50 mg daily, sertraline 50 mg daily, and topiramate 50 mg twice a day. She should continue on vancomycin 125 mg 4 times a day. FINAL DISCHARGE DIAGNOSES: Intermittent urinary retention. The patient's Gómez catheter was removed. She did very well on her voiding trials and now voids emptying her bladder without difficulty. There is no evidence clinically of any multiple sclerosis according to Dr. Schmidt. Clostridium difficile colitis, for which she was discharged to finish the course of oral vancomycin. She has migraine headache, gastroparesis. MIGUELINA ROSSI MD DR: DIVYA/shaheed JOB#: [id number] / [id number]
== END 2019-03-18 14:24 | disposition home or self-care (01) | DRG 696 ==
LOC: 5 NORTH 05:31
PROVIDERS: ADMIT Internal Medicine; ATTEND Internal Medicine
DX: R33.8 Other retention of urine (principal); A04.72 Enterocolitis due to Clostridium difficile, not specified as recurrent; Z68.41 Body mass index [BMI] 40.0-44.9, adult; K50.90 Crohn's disease, unspecified, without complications; R32 Unspecified urinary incontinence; E66.01 Morbid (severe) obesity due to excess calories; F41.9 Anxiety disorder, unspecified; G47.33 Obstructive sleep apnea (adult) (pediatric); G43.909 Migraine, unspecified, not intractable, without status migrainosus; J45.909 Unspecified asthma, uncomplicated; K21.9 Gastro-esophageal reflux disease without esophagitis; I10 Essential (primary) hypertension; N28.1 Cyst of kidney, acquired; K31.84 Gastroparesis; Z90.710 Acquired absence of both cervix and uterus; Z90.49 Acquired absence of other specified parts of digestive tract; Z83.3 Family history of diabetes mellitus
CPT/HCPCS: 36415; 76770; 80048; 80053; 84443; 85027; J2405; J3010; G0378

== ENCOUNTER 2020-08-03 08:33 | Observation (INO) | payer OTHER ==
[~2020-08-03] VITALS: Ht 160 cm; Wt 109.0 kg
[~2020-08-03 08:33] MED LIST changes: +ERYT250C33 PO; -ERYT250C8 PO; -MELA3TAB2 PO; +MELA3TAB4 PO; +PROP60CA36 PO; -PROP60CA8 PO; +VANC125C3 PO
[2020-08-03] MEDS ORDERED: KETOROLAC 30 MG/ML VIAL. IVP ONE (09:15)
[2020-08-03] MEDS ORDERED: DEXAMETHASONE SOD PHOS 20 MG/5 ML VIAL. IVP ONE (09:15)
[2020-08-03 09:57] LABS: BASO # 0.1 x10^3/uL (0.0-0.2); BASO % 1 % (0-3); EOS # 0.2 x10^3/uL (0.0-0.7); EOS % 2 % (0-3); HEMOGLOBIN 11.4 g/dL (12.0-15.5); LYMPH # 3.3 x10^3/uL (1.0-4.8); LYMPH % 34 % (24-48); MEAN CORPUSCULAR HEMOGLOBIN 23 pg (25-35); MEAN CORPUSCULAR HGB CONC 32 g/dL (31-37); MEAN CORPUSCULAR VOLUME 73 fL (79-100); MONO # 0.8 x10^3/uL (0.0-1.1); MONO % 8 % (0-9); NEUT # 5.4 x10^3/uL (1.8-7.7); NEUT % 55 % (31-73); PLATELET COUNT 325 x10^3/uL (140-400); RED BLOOD COUNT 4.93 x10^6/uL (3.50-5.40); RED CELL DISTRIBUTION WIDTH 17.4 % (11.5-14.5); WHITE BLOOD COUNT 9.8 x10^3/uL (4.0-11.0)
--- NOTE | 2020-08-03 09:57 | RAD ---
EXAM: CHEST 1 VIEW History: Cough, covid COMPARISON: None available. TECHNIQUE: Single portable radiograph of the chest FINDINGS: The cardiac silhouette is unremarkable. The lungs are clear bilaterally. The costophrenic sulci are clear and well demarcated. IMPRESSION: No radiographic evidence of an acute cardiopulmonary process. Electronically signed by: Cody Jensen MD (08/03/2020 9:55 AM) [id number]
[2020-08-03 10:07] LABS: CALCIUM 9.2 mg/dL (8.5-10.1); CREATININE 0.8 mg/dL (0.6-1.0); GFR 76.9; POTASSIUM 4.8 mmol/L (3.5-5.1)
[2020-08-03 10:13] LABS: ALBUMIN 3.6 g/dL (3.4-5.0); ALBUMIN/GLOBULIN RATIO 0.9 (1.0-1.7); C-REACTIVE PROTEIN 8.7 mg/L (0-3.3); TOTAL BILIRUBIN 0.3 mg/dL (0.2-1.0); TOTAL PROTEIN 7.8 g/dL (6.4-8.2)
[2020-08-03] MEDS ORDERED: MORPHINE SULFATE 10 MG/ML VIAL. IV ONE (10:15)
[2020-08-03] MEDS ORDERED: NITROGLYCERIN SUBLINGUAL 0.4 MG BOTTLE OF 25. SL PRN ×2 (12:45→14:15)
[2020-08-03] MEDS ORDERED: BISACODYL 10 MG SUPP.RECT. PR PRN (14:00)
[2020-08-03] MEDS ORDERED: MAGNESIUM HYDROXIDE 2,400 MG/30 ML ORAL.SUSP. PO PRN (14:00)
[2020-08-03] MEDS ORDERED: MAG HYDROX/ALUMINUM HYD/SIMETH 30 ML ORAL.SUSP PO PRN (14:00)
[2020-08-03] MEDS ORDERED: PROCHLORPERAZINE 10 MG/2 ML VIAL. IVP PRN (14:00)
[2020-08-03] MEDS ORDERED: MORPHINE SULFATE 2 MG/ML VIAL. IV PRN (14:00)
[2020-08-03] MEDS ORDERED: CALCIUM CARBONATE 500 MG TAB.CHEW PO PRN (14:00)
[2020-08-03] MEDS ORDERED: ACETAMINOPHEN 325 MG TABLET. PO PRN (14:00)
[2020-08-03] MEDS ORDERED: ZOLPIDEM 5 MG TABLET. PO PRN (14:00)
--- NOTE | 2020-08-03 14:17 | PDOC1 ---
History and Physical Date of Admission Date of Admission DATE: 08/03/20 TIME: 14:06 Identification/Chief Complaint Chief Complaint Chest pain Source Source: Patient History of Present Illness History of Present Illness Patient is a 45-year-old female who presents to the ER with complaints of sudden onset left-sided chest pain since this morning. She reports sharp pain, 7/10, that radiates to her left arm. She reports associated shortness of breath, cough nausea, and diaphoresis. EKG obtained upon arrival in the ED showed incomplete right bundle branch block, and patient reports known history of right bundle branch block. She does report a known COVID-19 exposure, and she is currently placed to self under self quarantine. She denies any fevers, chills, or vomiting. Will admit patient for further medical management. Past Medical History Past Medical History Migraines, gastroparesis, obesity Cardiovascular: HTN Pulmonary: Other CENTRAL NERVOUS SYSTEM: Migraine GI: Inflam bowel disease, Irritable bowel disease Psych: Anxiety Rheumatologic: Other Past Surgical History Past Surgical History Hysterectomy, cholecystectomy, appendectomy, tonsillectomy Past Surgical History: Tonsillectomy, Hysterectomy Family History Family History: No Significant Social History Smoke: No ALCOHOL: occassional Drugs: Marijuana Current Medications Current Medications Current Medications Dexamethasone Sodium Phosphate (Decadron) 10 mg 1X ONCE IVP Last administered on 08/03/20at 09:42; Start 08/03/20 at 09:15; Stop 08/03/20 at 09:16; Status DC Ketorolac Tromethamine (Toradol 30mg Vial) 30 mg 1X ONCE IVP Last administered on 08/03/20at 09:42; Start 08/03/20 at 09:15; Stop 08/03/20 at 09:16; Status DC Morphine Sulfate (Morphine Sulfate) 5 mg 1X ONCE IV Last administered on 08/03/20at 10:30; Start 08/03/20 at 10:15; Stop 08/03/20 at 10:16; Status DC Nitroglycerin (Nitrostat) 0.4 mg PRN Q5MIN PRN SL CHEST PAIN; Start 08/03/20 at 12:45 Active Scripts Active Vancomycin Hcl 125 Mg Capsule 125 Mg PO QID PRN 10 Days Erythromycin (Erythromycin Base) 250 Mg Capsule.dr 250 Mg PO BID 14 Days Reported Sertraline Hcl 50 Mg Tablet 50 Mg PO DAILY Protonix (Pantoprazole Sodium) 20 Mg Tablet.dr 40 Mg PO DAILYAC Topiramate 50 Mg Tablet 50 Mg PO BID Primidone 50 Mg Tablet 50 Mg PO DAILYWSUP Allergies Allergies: Coded Allergies: No Known Drug Allergies (Unverified , 09/18/15) ROS Review of System GENERAL: Diaphoresis. No history of weight change, weakness or fevers. SKIN: No bruising, hair changes or rashes. EYES: No blurred, double or loss of vision. NOSE AND THROAT: No history of nosebleeds, hoarseness or sore throat. HEART: Chest pain. Denies palpitations. LUNGS: Cough. Denies hemoptysis, wheezing or shortness of breath. GASTROINTESTINAL: Nausea. Denies vomiting, abdominal pain. GENITOURINARY: Denies dysuria, frequency, urgency, hematuria. NEUROLOGIC: Denies history of numbness, tingling, tremor or weakness. PSYCHIATRIC: Denies anxiety, denies depression. ENDOCRINE: No history of heat or cold intolerance, polyuria or polydipsia. EXTREMITIES: Denies muscle weakness, joint pain, pain on walking or stiffness. Physical Exam Physical Exam General: Alert, Oriented X3, Cooperative, moderate distress. Obese. HEENT: PERRLA, EOMI Lungs: Clear to auscultation, Normal air movement Heart: RRR, no murmurs Cardiovascular: S1, S2 Abdomen: Normal bowel sounds, Soft, No tenderness Extremities: No clubbing, No cyanosis Skin: No rashes, No significant lesion Neuro: Normal speech, Normal tone, Sensation intact Psych/Mental Status: Mental status NL, Mood NL Vitals Vitals Vital Signs Date Time Temp Pulse Resp B/P (MAP) Pulse Ox O2 Delivery O2 Flow Rate FiO2 08/03/20 08:42 99.0 86 28 146/90 (108) 94 Room Air 99.0 Labs Labs Laboratory Tests Test 08/03/20 09:40 08/03/20 12:50 White Blood Count 9.8 x10^3/uL (4.0-11.0) Red Blood Count 4.93 x10^6/uL (3.50-5.40) Hemoglobin 11.4 g/dL (12.0-15.5) Hematocrit 36.0 % (36.0-47.0) Mean Corpuscular Volume 73 fL (79-100) Mean Corpuscular Hemoglobin 23 pg (25-35) Mean Corpuscular Hemoglobin Concent 32 g/dL (31-37) Red Cell Distribution Width 17.4 % (11.5-14.5) Platelet Count 325 x10^3/uL (140-400) Neutrophils (%) (Auto) 55 % (31-73) Lymphocytes (%) (Auto) 34 % (24-48) Monocytes (%) (Auto) 8 % (0-9) Eosinophils (%) (Auto) 2 % (0-3) Basophils (%) (Auto) 1 % (0-3) Neutrophils # (Auto) 5.4 x10^3/uL (1.8-7.7) Lymphocytes # (Auto) 3.3 x10^3/uL (1.0-4.8) Monocytes # (Auto) 0.8 x10^3/uL (0.0-1.1) Eosinophils # (Auto) 0.2 x10^3/uL (0.0-0.7) Basophils # (Auto) 0.1 x10^3/uL (0.0-0.2) D-Dimer ([place]) 0.41 ug/mlFEU (0.00-0.50) Sodium Level 140 mmol/L (136-145) Potassium Level 4.8 mmol/L (3.5-5.1) Chloride Level 104 mmol/L (98-107) Carbon Dioxide Level 28 mmol/L (21-32) Anion Gap 8 (6-14) Blood Urea Nitrogen 13 mg/dL (7-20) Creatinine 0.8 mg/dL (0.6-1.0) Estimated GFR (Cockcroft-Gault) 76.9 BUN/Creatinine Ratio 16 (6-20) Glucose Level 104 mg/dL (70-99) Calcium Level 9.2 mg/dL (8.5-10.1) Total Bilirubin 0.3 mg/dL (0.2-1.0) Aspartate Amino Transf (AST/SGOT) 22 U/L (15-37) Alanine Aminotransferase (ALT/SGPT) 28 U/L (14-59) Alkaline Phosphatase 101 U/L (46-116) Lactate Dehydrogenase 186 U/L (81-234) Creatine Kinase 208 U/L (26-192) Troponin I Quantitative < 0.017 ng/mL (0.000-0.055) < 0.017 ng/mL (0.000-0.055) C-Reactive Protein, Quantitative 8.7 mg/L (0-3.3) RL-Had-S-Type Natriuretic Peptide 9 pg/mL (0-124) Total Protein 7.8 g/dL (6.4-8.2) Albumin 3.6 g/dL (3.4-5.0) Albumin/Globulin Ratio 0.9 (1.0-1.7) Laboratory Tests Test 08/03/20 09:40 08/03/20 12:50 White Blood Count 9.8 x10^3/uL (4.0-11.0) Red Blood Count 4.93 x10^6/uL (3.50-5.40) Hemoglobin 11.4 g/dL (12.0-15.5) Hematocrit 36.0 % (36.0-47.0) Mean Corpuscular Volume 73 fL (79-100) Mean Corpuscular Hemoglobin 23 pg (25-35) Mean Corpuscular Hemoglobin Concent 32 g/dL (31-37) Red Cell Distribution Width 17.4 % (11.5-14.5) Platelet Count 325 x10^3/uL (140-400) Neutrophils (%) (Auto) 55 % (31-73) Lymphocytes (%) (Auto) 34 % (24-48) Monocytes (%) (Auto) 8 % (0-9) Eosinophils (%) (Auto) 2 % (0-3) Basophils (%) (Auto) 1 % (0-3) Neutrophils # (Auto) 5.4 x10^3/uL (1.8-7.7) Lymphocytes # (Auto) 3.3 x10^3/uL (1.0-4.8) Monocytes # (Auto) 0.8 x10^3/uL (0.0-1.1) Eosinophils # (Auto) 0.2 x10^3/uL (0.0-0.7) Basophils # (Auto) 0.1 x10^3/uL (0.0-0.2) D-Dimer ([place]) 0.41 ug/mlFEU (0.00-0.50) Sodium Level 140 mmol/L (136-145) Potassium Level 4.8 mmol/L (3.5-5.1) Chloride Level 104 mmol/L (98-107) Carbon Dioxide Level 28 mmol/L (21-32) Anion Gap 8 (6-14) Blood Urea Nitrogen 13 mg/dL (7-20) Creatinine 0.8 mg/dL (0.6-1.0) Estimated GFR (Cockcroft-Gault) 76.9 BUN/Creatinine Ratio 16 (6-20) Glucose Level 104 mg/dL (70-99) Calcium Level 9.2 mg/dL (8.5-10.1) Total Bilirubin 0.3 mg/dL (0.2-1.0) Aspartate Amino Transf (AST/SGOT) 22 U/L (15-37) Alanine Aminotransferase (ALT/SGPT) 28 U/L (14-59) Alkaline Phosphatase 101 U/L (46-116) Lactate Dehydrogenase 186 U/L (81-234) Creatine Kinase 208 U/L (26-192) Troponin I Quantitative < 0.017 ng/mL (0.000-0.055) < 0.017 ng/mL (0.000-0.055) C-Reactive Protein, Quantitative 8.7 mg/L (0-3.3) BT-Lik-M-Type Natriuretic Peptide 9 pg/mL (0-124) Total Protein 7.8 g/dL (6.4-8.2) Albumin 3.6 g/dL (3.4-5.0) Albumin/Globulin Ratio 0.9 (1.0-1.7) Images Images EXAM: CHEST 1 VIEW History: Cough, covid COMPARISON: None available. TECHNIQUE: Single portable radiograph of the chest FINDINGS: The cardiac silhouette is unremarkable. The lungs are clear bilaterally. The costophrenic sulci are clear and well demarcated. IMPRESSION: No radiographic evidence of an acute cardiopulmonary process. VTE Prophylaxis Ordered VTE Prophylaxis Devices: No VTE Pharmacological Prophylaxi: Yes Assessment/Plan Assessment/Plan Chest pain Unstable angina COVID-19 PUI Plan: Initial troponins <0.017 x 2. We will continue to trend troponins. EKG with incomplete right bundle branch block, known to patient. Will obtain echocardiogram Consults cardiology Morphine, nitroglycerin as needed Will obtain lipid panel FEN - Cardiac diet PPX - Lovenox FULL CODE Dispo - observation for above Justifications for Admission Other Justification Chest pain CRUZ,PACO A MD Aug 03, 2020 14:17
[2020-08-03] MEDS: MORPHINE SULFATE 4 MG/ML VIAL. IV PRN ×2 (14:28→19:40)
--- NOTE | 2020-08-03 14:33 | ED.ADGEN ---
Past Medical History Past Medical History: GERD, Migraines Additional Past Medical Histor: SLEEP APNEA, GASTROPARESIS Past Surgical History: Appendectomy, Cholecystectomy, Hysterectomy Smoking Status: Never Smoker Alcohol Use: Rarely Drug Use: None General Adult EDM: Chief Complaint: CHEST PAIN HPI: HPI: Patient is a 45-year-old female who presents to the emergency room complaining of left-sided sharp chest pain. She initially started getting pain a couple of days ago and it has been intermittent since that time. Today it woke her up from her sleep and was associated with shortness of breath. Really she has been having body aches, fevers, cough for the last few days. She was recently exposed to coronavirus. She states that the pain has been constant since it cam e on this morning. She has not tried to take anything for it at home. She states she has never had anything like this previously. Is not worse with deep breaths or movement. Review of Systems: Review of Systems: Complete ROS is negative unless otherwise documented in HPI Current Medications: Current Medications Medications (Trade) Dose Ordered Sig/Rimma Start Time Stop Time Status Last Admin Dose Admin Acetaminophen (Tylenol) 650 mg PRN Q6HRS PRN 08/03/20 14:00 Al Hydroxide/Mg Hydroxide (Mylanta Plus Xs) 30 ml PRN Q3HRS PRN 08/03/20 14:00 Bisacodyl (Dulcolax Supp) 10 mg PRN DAILY PRN 08/03/20 14:00 Calcium Carbonate/ Glycine (Tums) 500 mg PRN Q3HRS PRN 08/03/20 14:00 Dexamethasone Sodium Phosphate (Decadron) 10 mg 1X ONCE 08/03/20 09:15 08/03/20 09:16 DC 08/03/20 09:42 10 MG Enoxaparin Sodium (Lovenox 40mg Syringe) 40 mg BID 08/03/20 21:00 Ketorolac Tromethamine (Toradol 30mg Vial) 30 mg 1X ONCE 08/03/20 09:15 08/03/20 09:16 DC 08/03/20 09:42 30 MG Magnesium Hydroxide (Milk Of Magnesia) 2,400 mg PRN Q12HR PRN 08/03/20 14:00 Morphine Sulfate (Morphine Sulfate) 2 mg PRN Q1HR PRN 08/03/20 14:00 Nitroglycerin (Nitrostat) 0.4 mg PRN Q5MIN PRN 08/03/20 14:15 Ondansetron HCl (Zofran) 4 mg PRN Q6HRS PRN 08/03/20 14:00 Prochlorperazine Edisylate (Compazine) 10 mg PRN Q6HRS PRN 08/03/20 14:00 Zolpidem Tartrate (Ambien) 5 mg PRN QHS PRN 08/03/20 14:00 Allergies: Allergies: Allergies Coded Allergies Type Severity Reaction Last Updated Verified No Known Drug Allergies 09/18/15 No Physical Exam: PE: General: Awake, alert, NAD. Well Nourished, well hydrated. Cooperative HEENT: Atraumatic, EOMI, PERRL, airway patent, moist oral mucosa Neck: Supple, trachea midline Respiratory: CTA bilaterally, normal effort, no wheezing/crackles CV: RRR, no murmur, cap refill <2 GI: Soft, nondistended, nontender, no masses MSK: No obvious deformities Skin: Warm, dry, intact Neuro: A&O x3, speech NL, sensory and motor grossly intact, no focal deficits Psych: Normal affect, normal mood, not suicidal or homicidal Current Patient Data: Labs: Laboratory Tests Test 08/03/20 09:40 08/03/20 12:50 White Blood Count 9.8 x10^3/uL (4.0-11.0) Red Blood Count 4.93 x10^6/uL (3.50-5.40) Hemoglobin 11.4 g/dL (12.0-15.5) L Hematocrit 36.0 % (36.0-47.0) Mean Corpuscular Volume 73 fL (79-100) L Mean Corpuscular Hemoglobin 23 pg (25-35) L Mean Corpuscular Hemoglobin Concent 32 g/dL (31-37) Red Cell Distribution Width 17.4 % (11.5-14.5) H Platelet Count 325 x10^3/uL (140-400) Neutrophils (%) (Auto) 55 % (31-73) Lymphocytes (%) (Auto) 34 % (24-48) Monocytes (%) (Auto) 8 % (0-9) Eosinophils (%) (Auto) 2 % (0-3) Basophils (%) (Auto) 1 % (0-3) Neutrophils # (Auto) 5.4 x10^3/uL (1.8-7.7) Lymphocytes # (Auto) 3.3 x10^3/uL (1.0-4.8) Monocytes # (Auto) 0.8 x10^3/uL (0.0-1.1) Eosinophils # (Auto) 0.2 x10^3/uL (0.0-0.7) Basophils # (Auto) 0.1 x10^3/uL (0.0-0.2) D-Dimer ([place]) 0.41 ug/mlFEU (0.00-0.50) Sodium Level 140 mmol/L (136-145) Potassium Level 4.8 mmol/L (3.5-5.1) Chloride Level 104 mmol/L (98-107) Carbon Dioxide Level 28 mmol/L (21-32) Anion Gap 8 (6-14) Blood Urea Nitrogen 13 mg/dL (7-20) Creatinine 0.8 mg/dL (0.6-1.0) Estimated GFR (Cockcroft-Gault) 76.9 BUN/Creatinine Ratio 16 (6-20) Glucose Level 104 mg/dL (70-99) H Calcium Level 9.2 mg/dL (8.5-10.1) Total Bilirubin 0.3 mg/dL (0.2-1.0) Aspartate Amino Transferase (AST) 22 U/L (15-37) Alanine Aminotransferase (ALT) 28 U/L (14-59) Alkaline Phosphatase 101 U/L (46-116) Lactate Dehydrogenase 186 U/L (81-234) Creatine Kinase 208 U/L (26-192) H Troponin I Quantitative < 0.017 ng/mL (0.000-0.055) < 0.017 ng/mL (0.000-0.055) C-Reactive Protein, Quantitative 8.7 mg/L (0-3.3) H QR-Kye-I-Type Natriuretic Peptide 9 pg/mL (0-124) Total Protein 7.8 g/dL (6.4-8.2) Albumin 3.6 g/dL (3.4-5.0) Albumin/Globulin Ratio 0.9 (1.0-1.7) L Laboratory Tests 08/03/20 09:40 Laboratory Tests 08/03/20 09:40 Vital Signs: Vital Signs Date Time Temp Pulse Resp B/P (MAP) Pulse Ox O2 Delivery O2 Flow Rate FiO2 08/03/20 08:42 99.0 86 28 146/90 (108) 94 Room Air 99.0 EKG: EKG: [] Heart Score: Risk Factors: Risk Factors: DM, Current or recent (<one month) smoker, HTN, HLP, family history of CAD, obesity. Risk Scores: Score 0 - 3: 2.5% MACE over next 6 weeks - Discharge Home Score 4 - 6: 20.3% MACE over next 6 weeks - Admit for Clinical Observation Score 7 - 10: 72.7% MACE over next 6 weeks - Early Invasive Strategies Radiology/Procedures: Radiology/Procedures: [] Course & Med Decision Making: Course & Med Decision Making Pertinent Labs and Imaging studies reviewed. (See chart for details) Patient 45-year-old female who presents to the emergency room complaining of left-sided chest pain. Pain is sharp and atypical for cardiac chest pain.she was treated initially with Toradol but stated that she did not receive any relief from this. She did receive a single dose of morphine while in the emergency room. Patient requested pain medicine several times while in the emergency room. Due to ongoing chest pain and patient's risk factors she will be admitted for cardiac evaluation. It is likely that she has novel coronavirus 19. Jennifer Landis Disclaimer: Sabiha Disclaimer: This electronic medical record was generated, in whole or in part, using a voice recognition dictation system. Departure Departure Impression: Primary Impression: Chest pain Additional Impression: Person under investigation for COVID-19 Disposition: ADMITTED INPT THIS HOSP Condition: STABLE Referrals: AIDE LOPEZ MD (PCP) Problem Qualifiers RELL OSUNA MD Aug 03, 2020 14:32
[2020-08-03] MEDS ORDERED: fentaNYL PF VIAL 100 MCG/2 ML VIAL IVP PRN (15:30)
[2020-08-03 16:20] VITALS: BP 149/80
[2020-08-03] MEDS ORDERED: PREG-9 PO (19:35)
[2020-08-03] MEDS ORDERED: DICY10CA3 PO (19:35)
[2020-08-03] MEDS: ENOXAPARIN 40 MG/0.4 ML SYRINGE. SQ SCH (19:39)
[2020-08-03 19:52] VITALS: BP 137/77
[2020-08-03 22:41] VITALS: BP 142/68
[2020-08-04] MEDS: MORPHINE SULFATE 4 MG/ML VIAL. IV PRN (01:27)
[2020-08-04] MEDS: ONDANSETRON PF 4 MG/2 ML VIAL. IVP PRN ×2 (01:27→09:39)
[2020-08-04 02:58] VITALS: BP 173/72
[2020-08-04 07:00] VITALS: BP 134/71
[2020-08-04] MEDS: ENOXAPARIN 40 MG/0.4 ML SYRINGE. SQ SCH (08:51)
--- NOTE | 2020-08-04 09:54 | PDOC ---
PROGRESS NOTES Date of Service: DATE: 08/04/20 TIME: 09:54 Chief Complaint Chief Complaint History: Cough, covid COMPARISON: None available. TECHNIQUE: Single portable radiograph of the chest FINDINGS: The cardiac silhouette is unremarkable. The lungs are clear bilaterally. The costophrenic sulci are clear and well demarcated. IMPRESSION: No radiographic evidence of an acute cardiopulmonary process. VTE Prophylaxis Ordered VTE Prophylaxis Devices: No VTE Pharmacological Prophylaxi: Yes Assessment/Plan Assessment/Plan Chest pain Unstable angina COVID-19 PUI, pos recent exposure acute hypoxic resp failure morbid obesity hyperlipidemia Plan: Initial troponins <0.017 x 2. trend troponins. EKG with incomplete right bundle branch block, known to patient. echocardiogram CRP Consult cardiology cvc bed Morphine, nitroglycerin as needed Will obtain lipid panel FEN - Cardiac diet PPX - Lovenox FULL CODE Dispo - observation for above o2 support d/w rn Justifications for Admission Justifications for Admission Other Justification Chest pain History of Present Illness History of Present Illness dentification/Chief Complaint Chief Complaint Chest pain Source Source: Patient History of Present Illness History of Present Illness Patient is a 45-year-old female who presents to the ER with complaints of sudden onset left-sided chest pain since this morning. She reports sharp pain, 7/10, that radiates to her left arm. She reports associated shortness of breath, cough nausea, and diaphoresis. EKG obtained upon arrival in the ED showed incomplete right bundle branch block, and patient reports known history of right bundle branch block. She does report a known COVID-19 exposure, and she is currently placed to self under self quarantine. She denies any fevers, chills, or vomiting. Will admit patient for further medical management. Past Medical History Past Medical History Migraines, gastroparesis, obesity Cardiovascular: HTN Pulmonary: Other CENTRAL NERVOUS SYSTEM: Migraine GI: Inflam bowel disease, Irritable bowel disease Psych: Anxiety Rheumatologic: Other Past Surgical History Past Surgical History Hysterectomy, cholecystectomy, appendectomy, tonsillectomy Past Surgical History: Tonsillectomy, Hysterectomy Family History Family History: No Significant Social History Smoke: No ALCOHOL: occassional Drugs: Marijuana Vitals Vitals Vital Signs Date Time Temp Pulse Resp B/P (MAP) Pulse Ox O2 Delivery O2 Flow Rate FiO2 08/04/20 07:00 97.5 74 21 134/71 (92) 100 Room Air 97.5 08/03/20 20:10 2.0 Physical Exam Physical Exam Physical Exam General: Alert, Oriented X3, Cooperative, moderate distress. Obese. HEENT: PERRLA, EOMI Lungs: Clear to auscultation, Normal air movement Heart: RRR, no murmurs Cardiovascular: S1, S2 Abdomen: Normal bowel sounds, Soft, No tenderness Extremities: No clubbing, No cyanosis Skin: No rashes, No significant lesion Neuro: Normal speech, Normal tone, Sensation intact Psych/Mental Status: Mental status NL, Mood NL General: No acute distress, moderate distress Lungs: Clear Labs LABS History: Cough, covid COMPARISON: None available. TECHNIQUE: Single portable radiograph of the chest FINDINGS: The cardiac silhouette is unremarkable. The lungs are clear bilaterally. The costophrenic sulci are clear and well demarcated. IMPRESSION: No radiographic evidence of an acute cardiopulmonary process. Electronically signed by: Cody Jensen MD (08/03/2020 9:55 AM) [id number] DICTATED and SIGNED BY: CODY JENSEN MD DATE: 08/03/20 [id number] Laboratory Tests Test 08/03/20 12:50 Troponin I Quantitative < 0.017 ng/mL (0.000-0.055) Assessment and Plan Assessmemt and Plan Problems Medical Problems: (1) Person under investigation for COVID-19 Status: Acute Comment Review of Relevant I have reviewed the following items jesus (where applicable) has been applied. Labs Laboratory Tests Test 08/03/20 09:40 08/03/20 12:50 White Blood Count 9.8 x10^3/uL (4.0-11.0) Red Blood Count 4.93 x10^6/uL (3.50-5.40) Hemoglobin 11.4 g/dL (12.0-15.5) Hematocrit 36.0 % (36.0-47.0) Mean Corpuscular Volume 73 fL (79-100) Mean Corpuscular Hemoglobin 23 pg (25-35) Mean Corpuscular Hemoglobin Concent 32 g/dL (31-37) Red Cell Distribution Width 17.4 % (11.5-14.5) Platelet Count 325 x10^3/uL (140-400) Neutrophils (%) (Auto) 55 % (31-73) Lymphocytes (%) (Auto) 34 % (24-48) Monocytes (%) (Auto) 8 % (0-9) Eosinophils (%) (Auto) 2 % (0-3) Basophils (%) (Auto) 1 % (0-3) Neutrophils # (Auto) 5.4 x10^3/uL (1.8-7.7) Lymphocytes # (Auto) 3.3 x10^3/uL (1.0-4.8) Monocytes # (Auto) 0.8 x10^3/uL (0.0-1.1) Eosinophils # (Auto) 0.2 x10^3/uL (0.0-0.7) Basophils # (Auto) 0.1 x10^3/uL (0.0-0.2) D-Dimer ([place]) 0.41 ug/mlFEU (0.00-0.50) Sodium Level 140 mmol/L (136-145) Potassium Level 4.8 mmol/L (3.5-5.1) Chloride Level 104 mmol/L (98-107) Carbon Dioxide Level 28 mmol/L (21-32) Anion Gap 8 (6-14) Blood Urea Nitrogen 13 mg/dL (7-20) Creatinine 0.8 mg/dL (0.6-1.0) Estimated GFR (Cockcroft-Gault) 76.9 BUN/Creatinine Ratio 16 (6-20) Glucose Level 104 mg/dL (70-99) Calcium Level 9.2 mg/dL (8.5-10.1) Total Bilirubin 0.3 mg/dL (0.2-1.0) Aspartate Amino Transf (AST/SGOT) 22 U/L (15-37) Alanine Aminotransferase (ALT/SGPT) 28 U/L (14-59) Alkaline Phosphatase 101 U/L (46-116) Lactate Dehydrogenase 186 U/L (81-234) Creatine Kinase 208 U/L (26-192) Troponin I Quantitative < 0.017 ng/mL (0.000-0.055) < 0.017 ng/mL (0.000-0.055) C-Reactive Protein, Quantitative 8.7 mg/L (0-3.3) ZO-Gpf-Z-Type Natriuretic Peptide 9 pg/mL (0-124) Total Protein 7.8 g/dL (6.4-8.2) Albumin 3.6 g/dL (3.4-5.0) Albumin/Globulin Ratio 0.9 (1.0-1.7) Laboratory Tests Test 08/03/20 12:50 Troponin I Quantitative < 0.017 ng/mL (0.000-0.055) Medications Current Medications Dexamethasone Sodium Phosphate (Decadron) 10 mg 1X ONCE IVP Last administered on 08/03/20at 09:42; Start 08/03/20 at 09:15; Stop 08/03/20 at 09:16; Status DC Ketorolac Tromethamine (Toradol 30mg Vial) 30 mg 1X ONCE IVP Last administered on 08/03/20at 09:42; Start 08/03/20 at 09:15; Stop 08/03/20 at 09:16; Status DC Morphine Sulfate (Morphine Sulfate) 5 mg 1X ONCE IV Last administered on 08/03/20at 10:30; Start 08/03/20 at 10:15; Stop 08/03/20 at 10:16; Status DC Nitroglycerin (Nitrostat) 0.4 mg PRN Q5MIN PRN SL CHEST PAIN; Start 08/03/20 at 12:45 Morphine Sulfate (Morphine Sulfate) 4 mg PRN Q2HR PRN IV SEVERE PAIN 7-10 Last administered on 08/04/20at 01:27; Start 08/03/20 at 14:00 Ondansetron HCl (Zofran) 4 mg PRN Q6HRS PRN IVP NAUSEA/VOMITING Last administered on 08/04/20at 09:39; Start 08/03/20 at 14:00 Prochlorperazine Edisylate (Compazine) 10 mg PRN Q6HRS PRN IVP NAUSEA/VOMITING- 2ND CHOICE; Start 08/03/20 at 14:00 Al Hydroxide/Mg Hydroxide (Mylanta Plus Xs) 30 ml PRN Q3HRS PRN PO HEARTBURN / GAS; Start 08/03/20 at 14:00 Calcium Carbonate/ Glycine (Tums) 500 mg PRN Q3HRS PRN PO UPSET STOMACH; Start 08/03/20 at 14:00 Zolpidem Tartrate (Ambien) 5 mg PRN QHS PRN PO INSOMNIA, MAY REPEAT IN 1HR; Start 08/03/20 at 14:00 Morphine Sulfate (Morphine Sulfate) 2 mg PRN Q1HR PRN IV MODERATE PAIN Last administered on 08/04/20at 05:49; Start 08/03/20 at 14:00 Acetaminophen (Tylenol) 650 mg PRN Q6HRS PRN PO Headaches, Temp > 101.5F; Start 08/03/20 at 14:00 Magnesium Hydroxide (Milk Of Magnesia) 2,400 mg PRN Q12HR PRN PO CONSTIPATION; Start 08/03/20 at 14:00 Bisacodyl (Dulcolax Supp) 10 mg PRN DAILY PRN PA CONSTIPATION; Start 08/03/20 at 14:00 Enoxaparin Sodium (Lovenox 40mg Syringe) 40 mg BID SQ Last administered on 08/04/20at 08:51; Start 08/03/20 at 21:00 Nitroglycerin (Nitrostat) 0.4 mg PRN Q5MIN PRN SL CHEST PAIN; Start 08/03/20 at 14:15 Fentanyl Citrate (Fentanyl 2ml Vial) 50 mcg PRN Q2HR PRN IVP PAIN Last administered on 08/03/20at 15:44; Start 08/03/20 at 15:30 Active Scripts Active Vancomycin Hcl 125 Mg Capsule 125 Mg PO QID PRN 10 Days Erythromycin (Erythromycin Base) 250 Mg Capsule.dr 250 Mg PO BID 14 Days Reported Dicyclomine Hcl 10 Mg Capsule 10 Mg PO QID Lyrica (Pregabalin) 75 Mg Capsule 75 Mg PO BID Sertraline Hcl 50 Mg Tablet 50 Mg PO DAILY Protonix (Pantoprazole Sodium) 20 Mg Tablet.dr 40 Mg PO DAILYAC Topiramate 50 Mg Tablet 50 Mg PO BID Primidone 50 Mg Tablet 50 Mg PO DAILYWSUP Vitals/I & O Vital Sign - Last 24 Hours 08/03/20 08/03/20 08/03/20 08/03/20 10:00 10:30 11:00 11:30 Pulse 80 80 78 84 Resp 22 B/P (MAP) 141/68 (92) 131/59 (83) 130/64 (86) 139/80 (99) Pulse Ox 95 95 93 94 O2 Delivery Room Air Room Air Room Air Room Air 08/03/20 08/03/20 08/03/20 08/03/20 12:00 12:30 14:30 15:00 Pulse 88 90 86 88 Resp 20 22 20 16 B/P (MAP) 142/81 (101) 144/3 (50) 143/84 (103) 125/62 (83) Pulse Ox 94 94 94 92 O2 Delivery Room Air Room Air Room Air Room Air 08/03/20 08/03/20 08/03/20 08/03/20 15:30 16:20 17:00 19:52 Temp 98.1 98.1 98.1 98.1 Pulse 86 88 85 Resp 18 26 24 B/P (MAP) 117/56 (76) 149/80 (103) 137/77 (97) Pulse Ox 92 90 100 O2 Delivery Room Air Room Air Nasal Cannula Room Air O2 Flow Rate 2.0 08/03/20 08/03/20 08/03/20 08/04/20 20:00 20:10 22:41 02:58 Temp 97.9 98.5 97.9 98.5 Pulse 83 80 Resp 18 20 B/P (MAP) 142/68 (92) 173/72 (105) Pulse Ox 100 93 96 O2 Delivery Nasal Cannula Nasal Cannula Room Air Room Air O2 Flow Rate 2.0 2.0 08/04/20 07:00 Temp 97.5 97.5 Pulse 74 Resp 21 B/P (MAP) 134/71 (92) Pulse Ox 100 O2 Delivery Room Air Intake and Output 08/03/20 08/03/20 08/04/20 15:00 23:00 07:00 Intake Total 180 ml 100 ml Output Total 400 ml 300 ml Balance -220 ml -200 ml Justicifation of Admission Dx: Justifications for Admission: Justification of Admission Dx: Yes Aspiration Pneumonia: Hemodynamic Instability Sepsis: Dehydration JAVY FERRELL MD Aug 04, 2020 09:54
[2020-08-04 11:00] VITALS: BP 138/75
--- NOTE | 2020-08-04 11:44 | PDOC2 ---
NEDA CHAIDEZ LEAD CARGOMAN 08/04/20 1144: CARDIAC CONSULT DATE OF CONSULT Date of Consult DATE: 08/04/20 TIME: 11:40 REASON FOR CONSULT Reason for Consult: Chest pain REFERRING PHYSICIAN Referring Physician: Dr. Mallory SOURCE Source: Chart review, Patient HISTORY OF PRESENT ILLNESS HISTORY OF PRESENT ILLNESS this is a 45 yo female who presented secondary to left sided chest pain. She reports as pressure-like. Began last Tuesday. Only present for a brief period. Returned yesterday in the air tester hours. Woke her up from sleep. Decided to come in for further evaluation and treatment. Located in the left chest. Radiates to the left shoulder. No associated dizziness, diaphoresis, palpitations, or nausea/vomiting. Pain improved with morphine. Reports h/o chronic RBBB. PAST MEDICAL HISTORY Cardiovascular: HTN Pulmonary: Other (EN) GI: GERD, Other (Crohn's ) PAST SURGICAL HISTORY Past Surgical History: Appendectomy, Cholecystectomy, Hysterectomy, Other (bladder sling ) SOCIAL HISTORY Smoke: No ALCOHOL: none Drugs: None Lives: with Family CURRENT MEDICATIONS CURRENT MEDICATIONS Current Medications Medications (Trade) Dose Ordered Sig/Rimma Route PRN Reason Start Time Stop Time Status Last Admin Dose Admin Morphine Sulfate (Morphine Sulfate) 4 mg PRN Q2HR PRN IV SEVERE PAIN 7-10 08/03/20 14:00 08/04/20 01:27 Ondansetron HCl (Zofran) 4 mg PRN Q6HRS PRN IVP NAUSEA/VOMITING 08/03/20 14:00 08/04/20 09:39 Morphine Sulfate (Morphine Sulfate) 2 mg PRN Q1HR PRN IV MODERATE PAIN 08/03/20 14:00 08/04/20 05:49 Enoxaparin Sodium (Lovenox 40mg Syringe) 40 mg BID SQ 08/03/20 21:00 08/04/20 08:51 Fentanyl Citrate (Fentanyl 2ml Vial) 50 mcg PRN Q2HR PRN IVP PAIN 08/03/20 15:30 08/03/20 15:44 ALLERGIES ALLERGIES: Coded Allergies: No Known Drug Allergies (Unverified , 09/18/15) ROS Review of System 14 point ROS conducted with pertinent positives noted above in hPi PHYSICAL EXAM General: Alert, Oriented X3, Cooperative, No acute distress HEENT: Atraumatic, Mucous membr. moist/pink Lungs: Clear to auscultation Heart: Regular rate Abdomen: Soft, No tenderness Extremities: No edema Skin: No significant lesion Neuro: Normal speech, Sensation intact Psych/Mental Status: Mood NL MUSCULOSKELETAL: Osteoarthritic changes both hands VITALS/I&O VITALS/I&O: Vital Signs Date Time Temp Pulse Resp B/P (MAP) Pulse Ox O2 Delivery O2 Flow Rate FiO2 08/04/20 08:00 Nasal Cannula 2.0 08/04/20 07:00 97.5 74 21 134/71 (92) 100 97.5 I & O 08/03/20 08/03/20 08/04/20 14:59 22:59 06:59 Intake Total 180 ml 100 ml Output Total 400 ml 300 ml Balance -220 ml -200 ml LABS Lab: Laboratory Tests Test 08/03/20 12:50 Troponin I Quantitative < 0.017 ng/mL (0.000-0.055) ASSESSMENT/PLAN ASSESSMENT/PLAN 1. Chest pain, atypical; AMI ruled out. 2. Hypertension 3. EN, morbid obesity 4. GERD 5. Chronic RBBB. Report having normal stress test approximately 1 year ago. Recommendations ASA Lipids; statin if indicated Await COVID Will arranged outpatient echo and ischemic evaluation with stress test. Follow up in clinic on an outpatient basis SHARATH GARIBAY MD 08/05/20 1031: CARDIAC CONSULT ASSESSMENT/PLAN ASSESSMENT/PLAN Patient seen and examined 08/04/2020. Agree with [employer] INSPECTOR's assessment and plan. Chest pain with atypical features. Myocardial infarction has been ruled out. Patient is currently being tested for Covid. Plan outpatient 2D echocardiogram and Lexiscan nuclear stress test. Thank you for your consultation NEDA CHAIDEZ APRN Aug 04, 2020 11:44 SHARATH GARIBAY MD Aug 05, 2020 10:31
[2020-08-04 12:44] LABS: CHOLESTEROL/HDL RATIO 7.3
[2020-08-04 15:00] VITALS: BP 127/70
[2020-08-04] MEDS ORDERED: PANTOPRAZOLE 40 MG TABLET.DR. PO SCH (16:30)
[2020-08-04] MEDS ORDERED: SERTRALINE 50 MG TABLET. PO SCH (17:30)
--- NOTE | 2020-08-04 18:00 | NUR ---
Discharge Note: INDRA FUNK [address] Discharge instructions and discharge home medications reviewed with Patient and a copy given. All questions have been answered and understanding verbalized. Belongings taken with patient upon discharge. The following instructions and handouts were given: Chest pain Discontinued lines and drains: Peripheral IV intact. Patient discharged to Home or Self Care with Self via Wheelchair
--- NOTE | 2020-08-05 11:18 | NUR ---
IP: Unsure if pt knew COVID results prior to discharge. Attempted to contact pt. No answer.
--- NOTE | 2020-08-05 12:25 | EKG ---
[facility] [address] [place] [address] Test Date: 2020-08-03 Test Time: 08:45:23 Pat Name: INDRA FUNK Department: Room: Gender: F Tong Hooker: : 1975 Requested By: RELL OSUNA Order Number: [id number] Reading MD: Measurements Intervals [place] Rate: 84 P: 39 IN: 156 QRS: 8 QRSD: 90 T: 41 QT: 372 QTc: 443 Interpretive Statements SINUS RHYTHM INCOMPLETE RIGHT BUNDLE BRANCH BLOCK OTHERWISE NORMAL ECG RI6.02 No previous ECG available for comparison
== END 2020-08-04 18:00 | disposition home or self-care (01) ==
LOC: ER 08:33 → ED HOLD 13:27 → 2 SOUTH 16:20
PROVIDERS: ADMIT Family Medicine; ATTEND Family Medicine
DX: I20.0 Unstable angina (principal); Z20.828 Contact with and (suspected) exposure to other viral communicable diseases; I10 Essential (primary) hypertension; I45.10 Unspecified right bundle-branch block; J96.01 Acute respiratory failure with hypoxia; K21.9 Gastro-esophageal reflux disease without esophagitis; K31.84 Gastroparesis; K50.90 Crohn's disease, unspecified, without complications; G47.33 Obstructive sleep apnea (adult) (pediatric); G43.909 Migraine, unspecified, not intractable, without status migrainosus; E78.5 Hyperlipidemia, unspecified; E66.01 Morbid (severe) obesity due to excess calories; F41.9 Anxiety disorder, unspecified; Z90.49 Acquired absence of other specified parts of digestive tract; Z90.710 Acquired absence of both cervix and uterus; Z68.41 Body mass index [BMI] 40.0-44.9, adult
CPT/HCPCS: 36415; 71045; 80053; 80061; 82550; 83615; 83880; 84484; 85025; 85379; 86140; 93005; 96372; 96374; 96375; 96376; 99285; G0378; J1100; J1650; J1885; J2270; J2405; J3010; U0003; G0379